=== PATIENT | male | born 1950 | race Caucasian/White ===

== ENCOUNTER 2019-03-22 07:52 | Inpatient (IN) | payer MEDICARE, MEDICAID, SELFPAY ==
[2019-03-22] VITALS (23 sets, daily range): BP systolic 88–114; BP diastolic 35–77; PULSE 55–110; RESP 18–24; TEMP 36–36.4; O2SAT 85–100; BMI 38.2
--- NOTE | ~2019-03-22 | US_ITS ---
EXAMINATION: US venous doppler [facility] DATE: 03/23/2019 10:54 INDICATION: Lower limb swelling TECHNIQUE: Grayscale ultrasound images without and with compression and Doppler ultrasound images of the bilateral lower extremity veins were obtained. COMPARISON: None. FINDINGS: The visualized portions of right common femoral vein, profunda (deep) femoral vein, femoral vein, pop liteal vein, posterior tibial veins, gastrocnemius vein and greater saphenous vein outflow are patent . The visualized portions of left common femoral vein, profunda femoral vein, femoral vein, popliteal v ein, posterior tibial veins, peroneal veins, gastrocnemius vein and greater saphenous vein outflow ar e patent. IMPRESSION: 1. No deep venous thrombosis in either lower limb. Reviewed, dictated and finalized at location A. ILE TECHNICIAN
--- NOTE | ~2019-03-22 | XR_ITS ---
XR chest 1V portable DATE: 03/22/2019 08:21 INDICATION: Cough TECHNIQUE: Portable upright AP chest on 03/22/2019 at 0809 hours COMPARISON: 03/04/2019 AP and lateral chest FINDINGS: Cardiomegaly. There is pulmonary vascular congestion and redistribution. Mild patchy infilt rates in the mid and lower lung zones, greater on the right, which may be due to pulmonary edema. Pne umonia or aspiration cannot be excluded. Minimal right pleural effusion is suggested. No left pleural effusion. No pneumothorax. Aortic calcification. IMPRESSION: Cardiomegaly, congestive heart failure, small right pleural effusion Bilateral infiltrates, right greater than left, which may be secondary to pulmonary edema, pneumonia and/or aspiration Aortic atherosclerosis Reviewed, dictated and finalized at location B. CAL CARE ADMINISTRATOR IMPRESSION: Cardiomegaly, congestive heart failure, small right pleural effusio n Bilateral infiltrates, right greater than left, which may be secondary to pulmo nary edema, pneumonia and/or aspiration Aortic atherosclerosis
--- NOTE | ~2019-03-22 | XR_ITS ---
XR chest 1V portable DATE: 03/24/2019 14:47 INDICATION: Shortness of breath, pulmonary edema TECHNIQUE: Portable upright AP chest on 03/24/2019 at 1444 hours COMPARISON: 03/22/2019 portable AP chest FINDINGS: There is no significant interval change in bilateral predominantly mid and lower lung zone infiltrates since 03/22/2019. Cardiac megaly, pulmonary vascular congestion appears stable. Aortic calcification. IMPRESSION: No significant change of bilateral infiltrates since 03/22/2019 Reviewed, dictated and finalized at location A. ITY TESTER
--- NOTE | 2019-03-22 07:58 | ECG_ITS ---
Measurements Intervals [place] Rate: 61 P: 97 VA: 250 QRS: 61 QRSD: 110 T: 83 QT: 421 QTc: 425 Interpretive Statements SINUS RHYTHM WITH FIRST DEGREE AV BLOCK BORDERLINE ST-T WAVE ABNORMALITY- LATERAL LEADS BASELINE WANDER- I, II ABNORMAL ECG Electronically Signed On 03-22-2019 8:35:41 COTTON SAMPLER by Andre Soni D.O.
--- NOTE | 2019-03-22 08:28 | ED.GENADULT ---
HPI - General Adult General Chief complaint: Unspecified Stated complaint: LOW BP Time Seen by Provider: 03/22/19 07:57 Source: patient, EMS and RN notes reviewed Mode of arrival: EMS Limitations: no limitations History of Present Illness HPI narrative: Pt is a 68 y/o male who presents to the ED, via EMS, from [place] with c/o near syncope. Per nurse, the [place] staff called EMS because he kept going in and out of during breakfast and his lips were cyanotic. Per [place] staff his BP was 60/30 and per EMS his BP was 90/60. Pt has a H/o CESAR and his O2 Sat was 80% on arrival to the ED. 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 He reports a cough for 3 months, but denies a fever. MD complaint: near syncope Onset (ago): day(s) (this morning) Relieving factors: none Associated symptoms: cough Treatments prior to arrival: none Related Data Home Medications Medication Instructions Recorded Confirmed Flonase Sensimist 27.5 mcg EACHNARE BID 03/01/19 03/02/19 Lactobacillus acidophilus 1 tab-cap PO BID 03/01/19 03/02/19 ProSource 10 ea PO BID 03/01/19 03/01/19 Questran 4 g PO BID 03/01/19 03/02/19 Toprol XL 12.5 mg PO BID 03/01/19 03/02/19 albuterol sulfate 1 mg INHALATION 6XD PRN 03/01/19 03/01/19 aspirin [Adult Low Dose Aspirin] 81 mg PO DAILY 03/01/19 03/22/19 bisacodyl 10 mg MD DAILY PRN 03/01/19 03/01/19 cetirizine [Zyrtec] 10 mg PO DAILY 03/01/19 03/01/19 clopidogrel [Plavix] 75 mg PO DAILY 03/01/19 03/02/19 gabapentin 200 mg PO TID 03/01/19 03/02/19 insulin lispro [Humalog U-100 1 sliding scale dose SUBCUT 03/01/19 03/02/19 Insulin] USEASDIRECTD levothyroxine 175 mcg PO DAILY 03/01/19 03/02/19 loratadine 10 mg PO DAILY PRN 03/01/19 03/02/19 ondansetron HCl [Zofran] 4 mg PO Q8H PRN 03/01/19 03/02/19 polyethylene glycol 3350 [Miralax] 17 g PO DAILY PRN 03/01/19 03/22/19 primidone 50 mg PO BID 03/01/19 03/02/19 sevelamer HCl 800 mg PO 6XD 03/01/19 03/02/19 tamsulosin [Flomax] 0.4 mg PO DAILY 03/01/19 03/02/19 Lactobacillus acidophilus See Rx Instructions .ROUTE .COMPLEX 03/22/19 03/22/19 atorvastatin [Lipitor] 80 mg PO DAILY 03/22/19 03/22/19 ferrous sulfate 325 mg PO DAILY 03/22/19 03/22/19 gabapentin 200 mg PO TID 03/22/19 03/22/19 gentamicin TOPICAL 03/22/19 03/22/19 hydrocodone-acetaminophen 1 tablet PO Q6H PRN 03/22/19 lanolin drepapk-oh-d.pet-ceres 1 applic TOPICAL DAILY 03/22/19 levothyroxine 175 mcg PO DAILY 03/22/19 03/22/19 Allergies Allergy/AdvReac Type Severity Reaction Status Date / Time No Known Allergies Allergy Verified 03/22/19 09:07 Review of Systems Review of Systems: All systems reviewed & are unremarkable except as noted in HPI and below Constitutional: Constitutional: Denies fever(s) Respiratory: Respiratory: Reports cough Neurologic: Reports syncope (near) [facility] Past Medical History Medical History (Updated 03/22/19 @ 16:12 by Tanner Werner DO) C. difficile colitis Constipation CVA (cerebral vascular accident) Diabetes mellitus Dialysis patient HTN, goal to be determined Hyperlipidemia Peritoneal dialysis catheter in place Surgical History Surgical History Hx of right BKA Social History Social History Smoking packs per day: 3 Smoking cigarettes per day: 60.0 Years smoked: 40 Smoking pack-years: 120.00 Smoking status: Former smoker Tobacco type: cigarettes Smoking end date: 03/01/99 Alcohol intake: unknown Substance use: former Substance use type: does not use Additional living arrangements comments: Pt lives at [facility]. Gender identity (if verbalized by the patient): Male Spiritual care concerns: No Agree to blood products: Yes Exam Narrative: Exam Narrative: APPEARANCE: No acute distress, nontoxic, resting in bed EYES: PERRL HEENT: Normocephalic, atraumatic, OMM RESPIRATORY: No respira
[2019-03-22 08:30] LABS: Basophils Absolute Auto 0.1 K/mm3 (0.0-0.1); Basophils Percent Auto 1.1 % (0.2-1.2); Eosinophils Absolute Auto 0.6 K/mm3 (0-0.3); Eosinophils Percent Auto 7.9 % (0-4.4); Hematocrit 33.9 % (42.0-52.0); Hemoglobin 9.9 g/dL (14.0-18.0); Immature Granulocyte Absolute 0.03 K/mm3 (0.00-0.031); Immature Granulocyte Percent A 0.4 % (0-0.5); Lymphocytes Absolute Auto 0.69 K/mm3 (0.9-3.2); Lymphocytes Percent Auto 9.9 % (18.3-44.2); Mean Corpuscular HGB Conc 29.2 g/dl (32-36); Mean Corpuscular Hemoglobin 27.7 pg (26-34); Mean Corpuscular Volume 94.7 fl (80-100); Mean Platelet Volume 8.9 fl (7.4-10.4); Monocytes Absolute Auto 0.7 K/mm3 (0.1-0.6); Monocytes Percent Auto 10.3 % (2.6-8.5); Neutrophils Absolute Auto 4.9 K/mm3 (1.3-6.7); Neutrophils Percent Auto 70.4 % (45.5-73.1); Nucleated Red Blood Cells Perc 0.3 % (0.0-0.2); Platelet Count Result 270 k/mm3 (150-375); Red Blood Count 3.58 M/mm3 (4.6-6.20); Red Cell Distribution Width 15.9 % (11.5-14.5)
[2019-03-22 08:43] LABS: Prothrombin Time 12.9 Seconds (11.1-14.7)
[2019-03-22 08:44] LABS: Partial Thromboplastin Time 31.6 SECONDS (22.3-36.8)
[2019-03-22 08:46] LABS: Ovalocytes 1+ (NORMAL); Platelet Estimate Adequate (Adequate); Stomatocytes 1+ (NORMAL); Tear Drop Cells 2+ (NORMAL)
[2019-03-22 08:47] LABS: Alkaline Phosphatase 79 U/L (38-126); Aspartate Amino Transferase 11 U/L (17-59); Bilirubin,Total < 0.1 mg/dL (0.2-1.3); Blood Urea Nitrogen 41 mg/dL (9-20); Calcium 7.9 mg/dL (8.4-10.2); Carbon Dioxide 25 mmol/L (22-30); Chloride 91 mmol/L (98-107); Estimated Glomerular Filt Rate 6; Glucose 138 mg/dL (75-110); Lactic Acid Reflex 0.9 mmol/L (0.7-2.1); Potassium 3.7 mmol/L (3.4-5.0); Sodium 131 mmol/L (137-145)
[2019-03-22 08:54] LABS: Alanine Aminotransferase < 6 U/L (4-50)
[2019-03-22 09:11] LABS: NT Pro B Type Natriuretic Pept 20700 PG/ML (5-100); Troponin I 0.024 ng/mL (0.000-0.034)
[2019-03-22 10:22] LABS: Alveolar/Arterial O2 Gradient 8.7 mmHg; Base Excess ABG -2.9 mEq/l (+/-2.0); Fractional Inspired Oxygen 28 %; Oxygen Content ABG 14.6 %vol (16.0-22.0); Oxygen Saturation ABG 92.4 % (95.0-100.0); Oxyhemoglobin 92.8 % THb (90.0-100.0); PO2 ABG 86.5 mmHg (80.0-100.0); PO2 FiO2 Ratio Arterial Blood 3.09 %; Total Hemoglobin 11.1 g/dL (12.0-18.0)
[2019-03-22 10:23] LABS: pH ABG 7.118 (7.350-7.450)
[2019-03-22 10:24] LABS: Device NASAL CANNULA; PCO2 ABG 88.5 mmHg (35.0-45.0); Site Drawn RIGHT BRACHIAL
[2019-03-22] MEDS: SODIUM CHLORIDE 0.9% IV 1,000 ML 999 ML IV CONT (10:39)
--- NOTE | 2019-03-22 11:50 | PC.NURSE ---
[facility]U not taking report on pt yet, said they would call back.
[2019-03-22 12:47] LABS: Alveolar/Arterial O2 Gradient 81.2 mmHg; Base Excess ABG -3.7 mEq/l (+/-2.0); Fractional Inspired Oxygen 45 %; Oxygen Content ABG 15.1 %vol (16.0-22.0); Oxygen Saturation ABG 97.8 % (95.0-100.0); Oxyhemoglobin 96.9 % THb (90.0-100.0); PO2 ABG 142.4 mmHg (80.0-100.0); PO2 FiO2 Ratio Arterial Blood 3.16 %; Total Hemoglobin 10.9 g/dL (12.0-18.0)
[2019-03-22 12:50] LABS: Device NON-INVASIVE VENT; PCO2 ABG 85.5 mmHg (35.0-45.0); Site Drawn RIGHT BRACHIAL; pH ABG 7.117 (7.350-7.450)
[2019-03-22 12:51] LABS: Non-Invasive Expiratory Pressure 8 CMH2O; Non-Invasive Inspiratory Pressure 14 CMH2O; Non-Invasive Vent Rate 20 /MIN
[2019-03-22 13:29] LABS: Glucose Point of Care 125 (65-105)
--- NOTE | 2019-03-22 14:01 | PM.EVENT ---
Event Note Event Note Event Note: Pt is on PD no abd pain. flows good and fluid has been clear. will increase intesnsity of the PD to remove fluid. He was seen 03/22/2019 at 2pm
--- NOTE | 2019-03-22 14:30 | PM.IMHP ---
H&P: HPI History of Present Illness Chief complaint: Hypotension, hypoxia. Narrative: Aisha Carey is a 68 year old male with multiple medical problems including history of stroke with left-sided weakness, diabetes, sleep apnea, hypertension, and end-stage renal disease on peritoneal dialysis who presented to the emergency department earlier this morning via EMS from [facility] for evaluation of hypotension and hypoxia. Other than a cough occasionally productive clear phlegm, the patient was feeling in his usual state of health when he went to bed last night. This morning while done at breakfast he was reportedly ?going in and out of it? and appeared somewhat cyanotic. Vital signs were immediately obtained with a blood pressure of 60/30, improved to 90/60 on EMS arrival. SpO2 was 80% on arrival to the emergency department. He was started on BiPAP due to somnolence and does note that he was a bit confused this morning. At the time my evaluation, he is awake, oriented, eager to removed the BiPAP so he can eat. He does not recall feeling poorly this morning, but he was somewhat confused and admits that he does not remember what happened. He states compliance with his CPAP at nighttime. He has not missed peritoneal dialysis that he can recall. He has chronic edema in his left leg for which she wears compression stockings. He denies fever, chills, and sweats. No chest pain, pleuritic pain, or palpitations. He denies nausea and vomiting. No diarrhea. He no longer urinates. No history of venous thromboembolism. Review of Systems Review of Systems: Narrative: Twelve systems were reviewed with pertinent positives and negatives as per HPI. No fever, chills, or sweats. He denies recent: Flu-like symptoms. No chest pain or shortness of breath. He has been on peritoneal dialysis for many years, and has had an AV fistula created a couple of weeks ago at [facility], presumably in anticipation for hemodialysis. Except as documented, all other systems were reviewed and are negative. [facility] Past Medical History Medical History (Updated 03/22/19 @ 20:51 by Desi Duke PA-C) C. difficile colitis Chronic anemia Constipation CVA (cerebral vascular accident) With mild left-sided weakness. Diabetes mellitus Hemoglobin A1c was 6.4 in February 2019. He is insulin-dependent. Hyperlipidemia Hypertension Hypothyroidism Obstructive sleep apnea on CPAP Peripheral vascular disease Peritoneal dialysis catheter in place Surgical History Surgical History Hx of right BKA Family History Family History Father History of blood clots Acute myocardial infarction Leukemia Mother History of blood clots Social History Social History (Updated 03/22/19 @ 20:45 by Desi Duke PA-C) Social History: The patient lives at [facility]. He designates his , Vira, as his surrogate decision maker and he wishes to be a full code. He smoked up to 3 packs of cigarettes per day for 40 years and reportedly quit in 1999. He denies alcohol and drug use. Smoking packs per day: 3 Smoking cigarettes per day: 60.0 Years smoked: 40 Smoking pack-years: 120.00 Smoking status: Former smoker Tobacco type: cigarettes Smoking end date: 03/22/19 Alcohol intake: former Substance use: never Substance use type: does not use Additional living arrangements comments: Pt lives at [facility]. Gender identity (if verbalized by the patient): Male Spiritual care concerns: No Agree to blood products: Yes Meds Home Medications and Allergies Home Medications Medication Instructions Recorded Confirmed Type Lactobacillus acidophilus 1 tab-cap PO BID 03/01/19 03/22/19 History ProSource 10 ea PO BID 03/01/19 03/22/19 History aspirin [Adult Low Dose Aspirin] 81 mg PO DAILY 03/01/19 0
[2019-03-22 15:35] LABS: Alveolar/Arterial O2 Gradient 83.2 mmHg; Base Excess ABG -2.8 mEq/l (+/-2.0); Fractional Inspired Oxygen 45 %; HCO3 ABG 27.3 mEq/l (22.0-26.0); Oxygen Content ABG 15.5 %vol (16.0-22.0); Oxygen Saturation ABG 98.1 % (95.0-100.0); Oxyhemoglobin 97.2 % THb (90.0-100.0); PO2 ABG 147.2 mmHg (80.0-100.0); PO2 FiO2 Ratio Arterial Blood 3.27 %; Total Hemoglobin 11.1 g/dL (12.0-18.0)
[2019-03-22 15:38] LABS: PCO2 ABG 79.5 mmHg (35.0-45.0); pH ABG 7.153 (7.350-7.450)
[2019-03-22 15:40] LABS: Device NON-INVASIVE VENT; Site Drawn RIGHT BRACHIAL
[2019-03-22 15:41] LABS: Non-Invasive Expiratory Pressure 8 CMH2O; Non-Invasive Inspiratory Pressure 20 CMH2O
[2019-03-22 15:52] LABS: Non-Invasive Vent Rate 20 /MIN
--- NOTE | 2019-03-22 16:54 | PM.CNNEP ---
Assessment and Plan Assessment and plan (1) End stage renal disease: Code(s): N18.6 - End stage renal disease Status: Chronic Assessment and Plan: the patient has ESRD and is on PD. he is tired of PD so is going to switch to HD once his fistula is ready in a few months. His PD catheter is working fine and the cycler is doing well. his UF is averaging over 2 L per day. (2) Acute respiratory failure with hypercapnia: Code(s): J96.02 - Acute respiratory failure with hypercapnia Status: Acute Assessment and Plan: the pateint has two issues. he has volume overload. he is very swollen and his lungs show fluid by exam and xray. His fluid intake is probably generous such that he overwhelms the PD at the prescription he has. his serum sodium is low so water drinking is an issue. he may have difficulty with salt intake as well. to help this we will place him back on PD now and start all h igh dose (4.25%) dianeal to get maximum fluid removal. I discussed with the PD nurse (the computer system crashed so I was unable to put the orders in) He also has respiratory acidosis. he has had co2 retention before. he is now on the bipap machine. (3) CESAR on CPAP: Code(s): G47.33 - Obstructive sleep apnea (adult) (pediatric); Z99.89 - Dependence on other enabling machines and devices Status: Acute Assessment and Plan: He uses the cpap machine at home. (4) Hypertension: Qualifiers: Hypertension type: essential hypertension Qualified Code(s): I10 - Essential (primary) hypertension Code(s): I10 - Essential (primary) hypertension Status: Chronic Assessment and Plan: his bloos pressure is well controlled. (5) HTN, goal to be determined: Code(s): I10 - Essential (primary) hypertension Status: Acute (6) Diabetes mellitus: Qualifiers: Diabetes mellitus complication detail: with other circulatory complications Diabetes mellitus complication status: with circulatory complication Diabetes mellitus terminal system operator insulin use: with alf use Diabetes mellitus type: type 2 Qualified Code(s): E11.59 - Type 2 diabetes mellitus with other circulatory complications; Z79.4 - shelter (current) use of insulin Code(s): E11.9 - Type 2 diabetes mellitus without complications Status: Chronic Assessment and Plan: he is on accuchecks and sliding scale insulin. (7) Erythropoietin deficiency anemia: Code(s): D63.1 - Anemia in chronic kidney disease Status: Acute Assessment and Plan: he has anemia. Hb is 9.8. will start epgen. History of Present Illness Reason for Consult Consult date: 03/23/19 Chief Complaint Chief complaint: Hypotension, hypoxia. 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 He was recently in the hospital for malfunction dialysis machine and volume overload. he had PD then HD for a few treatments. He improved. the cycler was repaired and he was discharged. he has had the desire to switch to HD so he had a fistula placed in the left upper arm 3 weeks ago. the procedure went well. over the last week or two he has gradually built up swelling. he has developed shortness of breath in the last week so he came to [facility] ER. there he was evaluated. he is very swollen, cxr shows fluid, and he was admitted. ABGs showed co2 retention so h was placed on the bipap. the patient just got into the room and says he feels a little better than when he got to the ER. he did receive inhalers and the bipap machine. he says the cycler and PD cath have been working fine. he says he has been using green and red bags 2 of each. no cloudy fluid or alarms. he does not smoke or drink. Review of Systems Constitutional: C
--- NOTE | 2019-03-22 18:47 | ADMGEN ---
This patient, Aisha Carey, was admitted to IMU Room 204-01 @ 1305 to room 204 accompanied by RN and RT. Pt placed back on BIPAP rate 20 FIO2-5%.. social media content specialist SB 50's 1st AV BLOCK; pt denies pain or SOB. Patient oriented to hospital policies and general routines including ID bracelet, bed and alarms, visiting hours, pain management, procedures, bathroom and other care routines, personal items, smoking policy, room service/diet, and visiting hours. Valuables list has been completed. Information on how to activate the Rapid Response Team has been discussed. Patient/Family are encouraged to report perceived risks to care and to ask questions if they do not understand what they are told or what they should do.
[2019-03-22 19:20] LABS: Alveolar/Arterial O2 Gradient 54.5 mmHg; Base Excess ABG -1.9 mEq/l (+/-2.0); Carboxyhemoglobin 0.1 % THb (0-2.0); Fractional Inspired Oxygen 35 %; HCO3 ABG 27.8 mEq/l (22.0-26.0); Methemoglobin ABG 0.4 %THb (0-1.5); Oxygen Content ABG 15.6 %vol (16.0-22.0); Oxygen Saturation ABG 96.3 % (95.0-100.0); Oxyhemoglobin 96.3 % THb (90.0-100.0); PO2 ABG 106.8 mmHg (80.0-100.0); PO2 FiO2 Ratio Arterial Blood 3.05 %; Reduced Hemoglobin 3.2 %THb (0-5.0); Total Hemoglobin 11.4 g/dL (12.0-18.0)
[2019-03-22 19:24] LABS: Device NON-INVASIVE VENT; Modified Allen's Test Pass; Non-Invasive Expiratory Pressure 8 CMH2O; Non-Invasive Inspiratory Pressure 22 CMH2O; Non-Invasive Vent Rate 20 /MIN; PCO2 ABG 75.9 mmHg (35.0-45.0); Site Drawn RIGHT RADIAL; pH ABG 7.181 (7.350-7.450)
[2019-03-22 21:36] LABS: Glucose Point of Care 204 (65-105)
[2019-03-22 23:02] LABS: Alveolar/Arterial O2 Gradient 57.3 mmHg; Base Excess ABG -5.1 mEq/l (+/-2.0); Fractional Inspired Oxygen 30 %; HCO3 ABG 23.8 mEq/l (22.0-26.0); Oxygen Content ABG 14.4 %vol (16.0-22.0); Oxygen Saturation ABG 92.4 % (95.0-100.0); Oxyhemoglobin 93.1 % THb (90.0-100.0); PO2 FiO2 Ratio Arterial Blood 2.67 %; Total Hemoglobin 10.9 g/dL (12.0-18.0)
[2019-03-22] MEDS: ALBUTEROL SULFATE NEB 2.5 MG/3 ML INH INHALATION (23:05)
[2019-03-22 23:06] LABS: pH ABG 7.181 (7.350-7.450)
[2019-03-22 23:07] LABS: Device NON-INVASIVE VENT; Modified Allen's Test Pass; Non-Invasive Expiratory Pressure 8 CMH2O; Non-Invasive Inspiratory Pressure 22 CMH2O; Non-Invasive Vent Rate 20 /MIN; PCO2 ABG 65.2 mmHg (35.0-45.0); Site Drawn RIGHT RADIAL
--- NOTE | 2019-03-22 23:50 | PC.NURSE ---
Stitches removed from fistula left arm at 2100, swabbed with betadine and chlorhexadine.
[2019-03-23] VITALS (17 sets, daily range): BP systolic 110–119; BP diastolic 38–46; PULSE 55–74; RESP 18–22; TEMP 35.9–36.6; O2SAT 94–100
[2019-03-23] MEDS: GENTAMICIN SULFATE 0.1% CR 15 GM TUBE 1 APPLIC TOPICAL ×2 (01:44→21:14)
[2019-03-23] MEDS: HEPARIN SODIUM 5,000 UNITS/ML VIAL 5000 UNITS SUB-Q ×3 (01:44→21:14)
[2019-03-23 04:51] LABS: Alveolar/Arterial O2 Gradient 73.5 mmHg; Base Excess ABG -1.7 mEq/l (+/-2.0); Carboxyhemoglobin 0.1 % THb (0-2.0); Fractional Inspired Oxygen 30 %; HCO3 ABG 26.7 mEq/l (22.0-26.0); Methemoglobin ABG 0.3 %THb (0-1.5); Oxygen Content ABG 13.8 %vol (16.0-22.0); Oxygen Saturation ABG 87.8 % (95.0-100.0); Oxyhemoglobin 89.7 % THb (90.0-100.0); PO2 ABG 64.1 mmHg (80.0-100.0); PO2 FiO2 Ratio Arterial Blood 2.14 %; Reduced Hemoglobin 9.9 %THb (0-5.0); Total Hemoglobin 10.9 g/dL (12.0-18.0)
[2019-03-23 04:52] LABS: pH ABG 7.232 (7.350-7.450)
[2019-03-23 04:53] LABS: Device NON-INVASIVE VENT; Modified Allen's Test Pass; Non-Invasive Expiratory Pressure 8 CMH2O; Non-Invasive Inspiratory Pressure 22 CMH2O; Non-Invasive Vent Rate 20 /MIN; PCO2 ABG 64.9 mmHg (35.0-45.0); Site Drawn RIGHT RADIAL
[2019-03-23 05:19] LABS: Basophils Absolute Auto 0.1 K/mm3 (0.0-0.1); Basophils Percent Auto 0.7 % (0.2-1.2); Eosinophils Absolute Auto 0.4 K/mm3 (0-0.3); Eosinophils Percent Auto 5.8 % (0-4.4); Hematocrit 32.6 % (42.0-52.0); Hemoglobin 9.8 g/dL (14.0-18.0); Immature Granulocyte Absolute 0.03 K/mm3 (0.00-0.031); Immature Granulocyte Percent A 0.4 % (0-0.5); Lymphocytes Absolute Auto 0.57 K/mm3 (0.9-3.2); Lymphocytes Percent Auto 8.4 % (18.3-44.2); Mean Corpuscular HGB Conc 30.1 g/dl (32-36); Mean Corpuscular Hemoglobin 27.8 pg (26-34); Mean Corpuscular Volume 92.4 fl (80-100); Mean Platelet Volume 9.2 fl (7.4-10.4); Monocytes Absolute Auto 0.6 K/mm3 (0.1-0.6); Monocytes Percent Auto 8.3 % (2.6-8.5); Neutrophils Absolute Auto 5.2 K/mm3 (1.3-6.7); Neutrophils Percent Auto 76.4 % (45.5-73.1); Platelet Count Result 265 k/mm3 (150-375); Red Blood Count 3.53 M/mm3 (4.6-6.20); Red Cell Distribution Width 15.7 % (11.5-14.5); White Blood Count 6.8 K/mm3 (4.5-10.0)
[2019-03-23 05:28] LABS: Blood Urea Nitrogen 39 mg/dL (9-20); Calcium 8.3 mg/dL (8.4-10.2); Carbon Dioxide 27 mmol/L (22-30); Chloride 94 mmol/L (98-107); Estimated CRCL calculation 12 ml/min; Estimated Glomerular Filt Rate 7; Glucose 210 mg/dL (75-110); Potassium 3.2 mmol/L (3.4-5.0); Sodium 132 mmol/L (137-145)
[2019-03-23] MEDS: LEVOTHYROXINE SODIUM 100 MCG TABLET PO (07:44)
[2019-03-23] MEDS: LEVOTHYROXINE SODIUM 75 MCG TABLET PO (07:44)
[2019-03-23 08:11] LABS: Glucose Point of Care 256 (65-105)
[2019-03-23] MEDS: SEVELAMER CARBONATE 800 MG TABLET 1600 MG PO ×3 (08:50→18:10)
[2019-03-23] MEDS: SILVERGEL (ELTA) 45 ML 1 APPLIC TOPICAL (08:51)
[2019-03-23] MEDS: FLUTICASONE PROPIONATE 0.05% NA SPR 16 GM BTL (*BKC) 2 SPRAY NASAL ×2 (08:51→18:09)
[2019-03-23] MEDS: CLOPIDOGREL BISULFATE 75 MG TABLET PO (08:52)
[2019-03-23] MEDS: GABAPENTIN 100 MG CAPSULE 200 MG PO ×3 (08:52→18:09)
[2019-03-23] MEDS: METOPROLOL SUCCINATE EXT REL 12.5 MG TABCR PO (08:52)
[2019-03-23] MEDS: TAMSULOSIN HCL 0.4 MG CAPSULE PO ×2 (08:52→18:11)
[2019-03-23] MEDS: EUCERIN CREAM 120 GM JAR 1 APPLIC TOPICAL (08:52)
[2019-03-23] MEDS: ATORVASTATIN 40 MG TABLET 80 MG PO (08:52)
[2019-03-23] MEDS: ACIDOPHILUS/BULGARICUS CHEWABLE TABLET 1 TABLET PO ×2 (08:53→18:12)
[2019-03-23] MEDS: CHOLESTYRAMINE (W/ SUGAR) 4 GM POWD.PACK 2 GM PO ×2 (08:54→18:08)
[2019-03-23] MEDS: FERROUS SULFATE 324 MG TABLET PO (08:54)
[2019-03-23] MEDS: ASPIRIN 81 MG ENTERIC TABLET PO (08:55)
[2019-03-23] MEDS: LORATADINE 10 MG TABLET PO (08:55)
[2019-03-23] MEDS: PRIMIDONE 50 MG TABLET PO ×2 (08:56→18:10)
[2019-03-23] MEDS: ALBUTEROL SULFATE NEB 2.5 MG/3 ML INH INHALATION (08:57)
[2019-03-23] MEDS: INSULIN ASPART (*BKC) 100 UNITS/ML SUB-Q ×2 (09:10→12:22)
--- NOTE | 2019-03-23 11:12 | PM.PNNEP ---
Progress Note: A&P Assessment and Plan (1) End stage renal disease: Code(s): N18.6 - End stage renal disease Status: Chronic Assessment and Plan: ongoing intensive CCPD to address volume status continue CCPD until can transition to HD follow electrolytes, volume status, and clearance (2) Acute respiratory failure with hypercapnia: Code(s): J96.02 - Acute respiratory failure with hypercapnia Status: Acute Assessment and Plan: due to volume overload and CESAR PD to address volume status BiPAP to compensate for CO2 retention (3) CESAR on CPAP: Code(s): G47.33 - Obstructive sleep apnea (adult) (pediatric); Z99.89 - Dependence on other enabling machines and devices Status: Acute Assessment and Plan: use CPAP/BiPAP while hospitalized follow CO2 levels (4) Hypertension: Qualifiers: Hypertension type: essential hypertension Qualified Code(s): I10 - Essential (primary) hypertension Code(s): I10 - Essential (primary) hypertension Status: Chronic Assessment and Plan: reasonable control at this time follow hemodynamics (5) Erythropoietin deficiency anemia: Code(s): D63.1 - Anemia in chronic kidney disease Status: Acute Assessment and Plan: due to ESRD on Epogen follow H/H Will continue to follow Subjective Date/time seen: 03/23/19 11:12 Tolerating CCPD treatment at the time of my visit (seen on PD at ~ 11:00AM); no other acute issues or problems overnight; volume status seems better in general compared to admission. Exam Narrative: Exam Narrative: General: WD/WN male in NAD Heart: normal S1 and S2; no rub Lungs: coarse breath sounds Abdomen: soft, nontender, nondistended, positive bowel sounds Extremities: no cyanosis or clubbing; 1+ edema Skin: warm and dry Objective Data Vital Signs Vital Signs: Vital Signs Temp Pulse Resp BP Pulse Ox 03/23/19 10:00 68 03/23/19 09:12 73 20 03/23/19 08:58 64 20 03/23/19 08:52 62 03/23/19 08:16 36.1 C L 60 20 119/42 L 100 03/23/19 08:00 58 L 03/23/19 06:00 60 03/23/19 04:54 55 L 20 97 03/23/19 04:00 36.6 C 59 L 18 117/43 L 95 03/23/19 02:00 63 03/23/19 01:22 63 21 H 100 03/23/19 00:00 36.6 C 56 L 18 117/42 L 96 03/22/19 23:15 58 L 20 03/22/19 23:08 61 20 100 03/22/19 23:05 56 L 20 03/22/19 22:00 58 L 03/22/19 20:00 36.4 C 61 18 114/46 L 100 03/22/19 19:15 61 18 100 03/22/19 18:00 58 L 03/22/19 17:00 96 03/22/19 16:00 36.0 C L 60 22 H 94/35 L 95 03/22/19 15:50 21 H 96 03/22/19 14:40 36.0 C L 62 22 H 94/35 L 03/22/19 14:00 55 L 03/22/19 13:22 56 L 22 H 93 03/22/19 13:05 36.3 C L 56 L 22 H 107/39 L 100 03/22/19 12:37 56 L 21 H 107/51 L 100 03/22/19 12:00 36.3 C L 56 L 22 H 107/39 L 100 03/22/19 11:28 55 L 20 111/77 100 Intake/Output Intake/Output: Intake & Output 03/20/19 03/21/19 03/22/19 03/23/19 23:59 23:59 23:59 23:59 Intake Total 1340 Balance 1340 Meds/Results Medications: Active Medications Generic Name Dose Route Start Last Admin Trade Name Fre PRN Reason Stop Dose Admin Hydrocodone Bitart/Acetaminophen 1 tab 03/22/19 20:58 [place] 5-325 Mg PO Q6H PRN Pain Rated 4-6 Albuterol 2.5 mg 03/23/19 00:00 03/23/19 08:57 Albuterol Sulf Neb 2.5 Mg/3 Ml INHALATION 2.5 mg Q8HRT RJ Administration Aspirin 81 mg 03/23/19 09:00 03/23/19 08:55 Aspirin Ec PO 81 mg DAILY RJ Administration Atorvastatin Calcium 80 mg 03/23/19 09:00 03/23/19 08:52 Lipitor PO 80 mg DAILY RJ Administration Bisacodyl 10 mg 03/22/19 20:58 Dulcolax Suppository RECTAL Q12H PRN Constipation Cholestyramine Resin 2 gm 03/23/19 09:00 03/23/19 08:54 Questran Powder Packs PO 2 gm BID RJ Administration Clopi
[2019-03-23 12:25] LABS: Glucose Point of Care 245 (65-105)
--- NOTE | 2019-03-23 13:37 | PM.IMPN ---
Progress Note: A&P Assessment and Plan (1) Acute respiratory failure with hypoxia and hypercapnia: Code(s): J96.01 - Acute respiratory failure with hypoxia; J96.02 - Acute respiratory failure with hypercapnia Status: Acute Assessment and Plan: Doing much better after intense PD overnight Transfer to medical floor (2) Volume overload: Qualifiers: Hypervolemia type: other Qualified Code(s): E87.79 - Other fluid overload Code(s): E87.70 - Fluid overload, unspecified Status: Acute Assessment and Plan: Continue volume management with PD per Nephrology Patient has a graft in place and is waiting for it to mature so he can transition to hemodialysis (3) End-stage renal disease on peritoneal dialysis: Code(s): N18.6 - End stage renal disease; Z99.2 - Dependence on renal dialysis Status: Acute Assessment and Plan: Continue with peritoneal dialysis per Nephrology (4) Obstructive sleep apnea on CPAP: Code(s): G47.33 - Obstructive sleep apnea (adult) (pediatric); Z99.89 - Dependence on other enabling machines and devices Status: Acute Assessment and Plan: Tolerating off BiPAP Continue home CPAP at night (5) Chronic anemia: Code(s): D64.9 - Anemia, unspecified Status: Acute Assessment and Plan: Hemoglobin and hematocrit were reviewed and they are stable. (6) Diabetes mellitus: Qualifiers: Diabetes mellitus type: type 2 Diabetes mellitus detention insulin use: with detention use Diabetes mellitus complication status: with circulatory complication Diabetes mellitus complication detail: with other circulatory complications Qualified Code(s): E11.59 - Type 2 diabetes mellitus with other circulatory complications; Z79.4 - intermodal dispatcher (current) use of insulin Code(s): E11.9 - Type 2 diabetes mellitus without complications Status: Chronic Assessment and Plan: Well controlled with recent hemoglobin A1c of 6.4. Continue basal insulin and initiate sliding scale insulin, Accu-Cheks, and hypoglycemic protocol. Subjective Date/time seen: 03/23/19 13:37 Interval history: Breathing much better after intensive PD overnight. Denied pain. No GI or complaints. No abnormal bleeding. Review of Systems Review of Systems: All systems reviewed & are unremarkable except as noted in HPI and below Exam Narrative: Exam Narrative: HEENT: EOMI, PERRL, pharyngeal mucosa pink and intact NECK: No JVD, adenopathy, or thyromegaly CHEST: coarse BS HEART: NL S1/S2, regular, no murmur ABDOMEN: BS+, soft, nontender, no mass, no bruits EXTREMITIES: No cyanosis, 1+ pretibial edema NEUROLOGIC: CN intact and symmetric to inspection. MUSCULOSKELETAL: Tone and strength symmetric. PSYCH: Alert. Oriented to person, place, and time. Objective Data Vital Signs Vital Signs: Vital Signs - 24 hr 03/22/19 14:00 03/22/19 14:40 03/22/19 15:50 Temperature 96.8 F L Pulse Rate 55 L 62 Respiratory Rate 22 H 21 H Blood Pressure 94/35 L Pulse Oximetry 96 03/22/19 16:00 03/22/19 17:00 03/22/19 18:00 Temperature 96.8 F L Pulse Rate 60 58 L Respiratory Rate 22 H Blood Pressure 94/35 L Pulse Oximetry 95 96 03/22/19 19:15 03/22/19 20:00 03/22/19 22:00 Temperature 97.6 F Pulse Rate 61 61 58 L Respiratory Rate 18 18 Blood Pressure 114/46 L Pulse Oximetry 100 100 03/22/19 23:05 03/22/19 23:08 03/22/19 23:15 Temperature Pulse Rate 56 L 61 58 L Respiratory Rate 20 20 20 Blood Pressure Pulse Oximetry 100 03/23/19 00:00 03/23/19 01:22 03/23/19 02:00 Temperature 97.9 F Pulse Rate 56 L 63 63 Respiratory Rate 18 21 H Blood Pressure 117/42 L Pulse Oximetry 96 100 03/23/19 04:00 03/23/19 04:54 03/23/19 06:00 Temperature 97.8 F Pulse Rate 59 L 55 L 60 Respiratory Rate 18 20 Blood Pressure 117/43 L Pulse Oximetry 95 97 03/23/19 08:00 03/23/19
[2019-03-23 16:10] LABS: Glucose Point of Care 114 (65-105)
--- NOTE | 2019-03-23 18:40 | PC.NURSE ---
This patient, Aisha Carey, was received from IMU on 03/23/19 at 1600. Personal belongings list checked and signed. Patient/family oriented to unit policies and routines
[2019-03-23 21:19] LABS: Glucose Point of Care 213 (65-105)
[2019-03-24] VITALS (8 sets, daily range): BP systolic 109; BP diastolic 57; PULSE 66–72; RESP 18–20; TEMP 36.7; O2SAT 92–98
[2019-03-24] MEDS: ALBUTEROL SULFATE NEB 2.5 MG/3 ML INH INHALATION ×3 (00:47→14:06)
[2019-03-24] MEDS: LEVOTHYROXINE SODIUM 75 MCG TABLET PO (05:34)
[2019-03-24] MEDS: LEVOTHYROXINE SODIUM 100 MCG TABLET PO (05:35)
[2019-03-24 08:05] LABS: Glucose Point of Care 108 (65-105)
[2019-03-24] MEDS: ATORVASTATIN 40 MG TABLET 80 MG PO (08:51)
[2019-03-24] MEDS: CLOPIDOGREL BISULFATE 75 MG TABLET PO (08:51)
[2019-03-24] MEDS: TAMSULOSIN HCL 0.4 MG CAPSULE PO ×2 (08:51→16:45)
[2019-03-24] MEDS: CHOLESTYRAMINE (W/ SUGAR) 4 GM POWD.PACK 2 GM PO ×2 (08:52→16:44)
[2019-03-24] MEDS: FLUTICASONE PROPIONATE 0.05% NA SPR 16 GM BTL (*BKC) 2 SPRAY NASAL ×2 (08:52→16:46)
[2019-03-24] MEDS: GABAPENTIN 100 MG CAPSULE 200 MG PO ×3 (08:52→16:45)
[2019-03-24] MEDS: SEVELAMER CARBONATE 800 MG TABLET 1600 MG PO ×3 (08:53→16:45)
[2019-03-24] MEDS: METOPROLOL SUCCINATE EXT REL 12.5 MG TABCR PO (08:53)
[2019-03-24] MEDS: ACIDOPHILUS/BULGARICUS CHEWABLE TABLET 1 TABLET PO ×2 (08:54→16:46)
[2019-03-24] MEDS: ASPIRIN 81 MG ENTERIC TABLET PO (08:54)
[2019-03-24] MEDS: FERROUS SULFATE 324 MG TABLET PO (08:54)
[2019-03-24] MEDS: HEPARIN SODIUM 5,000 UNITS/ML VIAL 5000 UNITS SUB-Q (08:54)
[2019-03-24] MEDS: PRIMIDONE 50 MG TABLET PO ×2 (08:55→16:45)
[2019-03-24] MEDS: LORATADINE 10 MG TABLET PO (08:55)
[2019-03-24] MEDS: SILVERGEL (ELTA) 45 ML 1 APPLIC TOPICAL (10:56)
[2019-03-24] MEDS: EUCERIN CREAM 120 GM JAR 1 APPLIC TOPICAL (10:56)
[2019-03-24 13:06] LABS: Glucose Point of Care 124 (65-105)
--- NOTE | 2019-03-24 14:06 | PM.PNNEP ---
Progress Note: A&P Assessment and Plan (1) End stage renal disease: Code(s): N18.6 - End stage renal disease Status: Chronic Assessment and Plan: continue CCPD nightly while hospitalized continue CCPD until can transition to HD follow electrolytes, volume status, and clearance (2) Acute respiratory failure with hypercapnia: Code(s): J96.02 - Acute respiratory failure with hypercapnia Status: Acute Assessment and Plan: due to volume overload and CESAR PD to address volume status BiPAP to compensate for CO2 retention (3) CESAR on CPAP: Code(s): G47.33 - Obstructive sleep apnea (adult) (pediatric); Z99.89 - Dependence on other enabling machines and devices Status: Acute Assessment and Plan: use CPAP/BiPAP while hospitalized follow CO2 levels (4) Hypertension: Qualifiers: Hypertension type: essential hypertension Qualified Code(s): I10 - Essential (primary) hypertension Code(s): I10 - Essential (primary) hypertension Status: Chronic Assessment and Plan: reasonable control at this time follow hemodynamics (5) Erythropoietin deficiency anemia: Code(s): D63.1 - Anemia in chronic kidney disease Status: Acute Assessment and Plan: due to ESRD on Epogen follow H/H Will continue to follow Subjective Date/time seen: 03/24/19 14:06 Tolerated regular CCPD overnight with another 1600cc UF; the previous day fluid remova/UFl was 4444cc; overall, breathing seems to be doing better; no apparent distress noted Exam Narrative: Exam Narrative: General: WD/WN male in NAD Heart: normal S1 and S2; no rub Lungs: coarse breath sounds Abdomen: soft, nontender, nondistended, positive bowel sounds Extremities: no cyanosis or clubbing; 1+ edema Skin: warm and dry Objective Data Vital Signs Vital Signs: Vital Signs Temp Pulse Resp BP Pulse Ox 03/24/19 09:25 70 20 03/24/19 09:15 68 20 03/24/19 08:53 72 03/24/19 08:00 36.7 C 69 18 109/57 L 92 03/24/19 00:55 67 20 03/24/19 00:47 66 20 98 03/23/19 22:15 36.4 C L 68 18 110/46 L 97 03/23/19 21:15 68 18 97 03/23/19 19:24 74 22 H 97 Intake/Output Intake/Output: Intake & Output 03/21/19 03/22/19 03/23/19 03/24/19 23:59 23:59 23:59 23:59 Intake Total 1340 1320 580 Output Total 1665 Balance 1340 1320 -1085 Meds/Results Medications: Active Medications Generic Name Dose Route Start Last Admin Trade Name Freq PRN Reason Stop Dose Admin Hydrocodone Bitart/Acetaminophen 1 tab 03/22/19 20:58 [place] 5-325 Mg PO Q6H PRN Pain Rated 4-6 Albuterol 2.5 mg 03/23/19 00:00 03/24/19 09:22 Albuterol Sulf Neb 2.5 Mg/3 Ml INHALATION 2.5 mg Q8HRT RJ Administration Aspirin 81 mg 03/23/19 09:00 03/24/19 08:54 Aspirin Ec PO 81 mg DAILY RJ Administration Atorvastatin Calcium 80 mg 03/23/19 09:00 03/24/19 08:51 Lipitor PO 80 mg DAILY RJ Administration Bisacodyl 10 mg 03/22/19 20:58 Dulcolax Suppository RECTAL Q12H PRN Constipation Cholestyramine Resin 2 gm 03/23/19 09:00 03/24/19 08:52 Questran Powder Packs PO 2 gm BID RJ Administration Clopidogrel Bisulfate 75 mg 03/23/19 09:00 03/24/19 08:51 Plavix PO 75 mg DAILY RJ Administration Dextrose 12.5 gm 03/22/19 21:00 Dextrose 50% Syringe IV PUSH PRN PRN Hypoglycemia Protocol Ferrous Sulfate 324 mg 03/23/19 08:00 03/24/19 08:54 Ferrous Sulfate PO 324 mg DAILY@0800 RJ Administration Fluticasone Propionate 2 spray 03/23/19 09:00 03/24/19 08:52 Flonase 0.05% Nasal [place] NASAL 2 spray BID RJ Administration Gabapentin 200 mg 03/23/19 09:00 03/24/19 12:47 Neurontin PO 200 mg TID RJ Administration Gentamicin Sulfate 1 applic 03/22/19 22:00 03/23/19 21:14 Gentamicin Sulfate 0.1% Cr TOPICAL 1 applic
--- NOTE | 2019-03-24 14:45 | PM.DS ---
DS: Diagnosis Admitting Diagnosis Admitting Diagnosis: Acute respiratory failure with hypoxia Discharge Diagnosis (1) Acute respiratory failure with hypoxia and hypercapnia: Code(s): J96.01 - Acute respiratory failure with hypoxia; J96.02 - Acute respiratory failure with hypercapnia Status: Acute Assessment and Plan: Doing much better after intense PD overnight Transfer to medical floor (2) Volume overload: Qualifiers: Hypervolemia type: other Qualified Code(s): E87.79 - Other fluid overload Code(s): E87.70 - Fluid overload, unspecified Status: Acute Assessment and Plan: Continue volume management with PD per Nephrology Patient has a graft in place and is waiting for it to mature so he can transition to hemodialysis (3) End-stage renal disease on peritoneal dialysis: Code(s): N18.6 - End stage renal disease; Z99.2 - Dependence on renal dialysis Status: Acute Assessment and Plan: Continue with peritoneal dialysis per Nephrology (4) Obstructive sleep apnea on CPAP: Code(s): G47.33 - Obstructive sleep apnea (adult) (pediatric); Z99.89 - Dependence on other enabling machines and devices Status: Acute Assessment and Plan: Tolerating off BiPAP Continue home CPAP at night (5) Chronic anemia: Code(s): D64.9 - Anemia, unspecified Status: Acute Assessment and Plan: Hemoglobin and hematocrit were reviewed and they are stable. 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 Continue basal insulin and initiate sliding scale insulin, Accu-Cheks, and hypoglycemic protocol. DS: Summary Hospital Course Reason for hospitalization: Dyspnea Hospital Course: Admitted with dyspnea found to be volume overloaded. Intensified PD rectified is situation. He had a graft that was maturing so that he can transition to hemodialysis. He was followed by Nephrology during hospitalization. They will manage his volume status as an outpatient with more intense PT. Status at Discharge Overall status at discharge: patient is back to baseline Time Spent with Patient Time attestation: Total time spent providing and/or coordinating discharge services: 33 min Exam Narrative: Exam Narrative: HEENT: EOMI, PERRL, pharyngeal mucosa pink and intact NECK: No JVD, adenopathy, or thyromegaly CHEST: less coarse BS HEART: NL S1/S2, regular, no murmur ABDOMEN: BS+, soft, nontender, no mass, no bruits EXTREMITIES: No cyanosis, 1+ pretibial edema NEUROLOGIC: CN intact and symmetric to inspection. MUSCULOSKELETAL: Tone and strength symmetric. PSYCH: Alert. Oriented to person, place, and time. DS: Data Data Completed and Pending Labs on day of discharge: Labs from last 24 hours 03/24/19 03/24/19 03/23/19 12:45 07:28 21:11 POC Capillary Glucose 124 H 108 213 H 03/23/19 16:07 POC Capillary Glucose 114 H Preliminary micro results at discharge 03/22/19 08:24 Blood Culture - Preliminary Blood 03/22/19 08:24 Blood Culture - Preliminary Blood Discharge Plan Discharge Attending physician on discharge: Rainer Greer Consulting providers: Romaine Calabrese ; Desi Duke ; Andre Soni ; Star Ramos ; Que Joy Paul Discharging Clinician: Rainer Greer Patient Disposition: [facility] Home/[facility]st Living Activity: as tolerated Diet: diabeti
[2019-03-24] MEDS: EPOETIN ALFA 10,000 UNITS/ML VIAL 10000 UNITS SUB-Q (15:50)
[2019-03-24 16:16] LABS: Glucose Point of Care 110 (65-105)
--- NOTE | 2019-03-24 16:42 | PC.NURSE ---
Notified patient's , Vira Brandon, that the patient is returning today to [facility]. Acknowledged understanding.
--- NOTE | 2019-03-24 17:20 | PC.NURSE ---
Nurse at [facility], Cadence Giron LPN, voiced cannot fax discharge information because the fax machine is not working.
== END 2019-03-24 18:15 | DRG 640 ==
LOC: ANHED 09:06 → ANHIMU 12:37 → ANH3MED 03-23 19:41 → ANHIMU 03-28 08:51
PROVIDERS: Internal Medicine; Physician Assistant; Admitting Provider Family Medicine; Emergency Provider Emergency Medicine; Visit Provider Internal Medicine
DX: E87.70 Fluid overload, unspecified (principal); J96.01 Acute respiratory failure with hypoxia; N18.6 End stage renal disease; J96.02 Acute respiratory failure with hypercapnia; I12.0 Hypertensive chronic kidney disease with stage 5 chronic kidney disease or end stage renal disease; I69.354 Hemiplegia and hemiparesis following cerebral infarction affecting left non-dominant side; E66.2 Morbid (severe) obesity with alveolar hypoventilation; E11.22 Type 2 diabetes mellitus with diabetic chronic kidney disease; E11.51 Type 2 diabetes mellitus with diabetic peripheral angiopathy without gangrene; E78.5 Hyperlipidemia, unspecified; E03.9 Hypothyroidism, unspecified; G47.33 Obstructive sleep apnea (adult) (pediatric); D63.1 Anemia in chronic kidney disease; Z87.891 Personal history of nicotine dependence; Z89.511 Acquired absence of right leg below knee; Z99.2 Dependence on renal dialysis; Z68.36 Body mass index [BMI] 36.0-36.9, adult; Z79.4 Long term (current) use of insulin; Z79.82 Long term (current) use of aspirin
CPT/HCPCS: 36415; 36600; 71045; 80048; 80053; 82375; 82805; 83050; 83605; 83880; 84443; 84484; 85025; 85610; 85730; 87040; 87081; 87804; 90945; 93005; 93970; 94002; 94003; 94640; 94660; 96360; 99291; A9270; J1644; J1815; J7030; Q4081

== ENCOUNTER 2019-04-09 12:18 | Inpatient (IN) | payer MEDICARE, MEDICAID, SELFPAY ==
[2019-04-09] VITALS (17 sets, daily range): BP systolic 100–125; BP diastolic 36–50; PULSE 58–72; RESP 9–22; TEMP 35.8–36.7; O2SAT 94–100; BMI 38.4
--- NOTE | ~2019-04-09 | XR_ITS ---
EXAMINATION: XR chest 2V DATE: 04/09/2019 12:54 INDICATION: Shortness of breath TECHNIQUE: AP and lateral views of the chest are obtained. COMPARISON: 03/24/2019 FINDINGS: Patchy bilateral interstitial and airspace opacities persist but have slightly improved. Th ere are small pleural effusions. No pneumothorax is identified. There is stable cardiomegaly. There i s mild thoracic spondylosis. IMPRESSION: 1. Improved interstitial and airspace opacities, consistent with resolving pulmonary edema and/or pne umonia and/or atelectasis. 2. Stable cardiomegaly. 3. Small pleural effusions. Reviewed, dictated and finalized at location A. SITE SUPERVISOR IMPRESSION: 1. Improved interstitial and airspace opacities, consistent with resolving pulm onary edema and/or pneumonia and/or atelectasis. 2. Stable cardiomegaly. 3. Small pleural effusions.
--- NOTE | 2019-04-09 12:31 | ED.SOB ---
HPI - SOB/Dyspnea General Chief Complaint: Shortness of Breath/Dyspnea Stated Complaint: sob x1 week Time Seen by Provider: 04/09/19 12:23 Source: patient and RN notes reviewed Mode of arrival: EMS Limitations: no limitations History of Present Illness HPI Narrative: A 68 y/o male presents to the ED via EMS from [facility] with worsening SOB for the past couple weeks. He notes that his SOB is aggravated when he lays flat and denies anything alleviating it. He also denies any cough, fevers, chills, increased edema, N/V/D, CP, or ABD pain. MD elicited complaint: shortness of breath Pertinent past history: diabetes and DVT Onset (ago): week(s) (a couple) Timing: progressively worsening Exacerbating factors: lying flat Relieving factors: nothing Known history of: diabetes and DVT Associated symptoms: denies other symptoms Treatment prior to arrival: oxygen Related Data Home Medications Medication Instructions Recorded Confirmed ProSource 10 ea PO BID 03/01/19 04/09/19 bisacodyl 10 mg IA DAILY PRN 03/01/19 04/09/19 cetirizine [Zyrtec] 10 mg PO DAILY 03/01/19 04/09/19 clopidogrel [Plavix] 75 mg PO DAILY 03/01/19 04/09/19 insulin lispro [Humalog U-100 1 sliding scale dose SUBCUT TIDWM 03/01/19 04/09/19 Insulin] ondansetron HCl [Zofran] 4 mg PO Q8H PRN 03/01/19 04/09/19 polyethylene glycol 3350 [Miralax] 17 g PO DAILY PRN 03/01/19 04/09/19 tamsulosin [Flomax] 0.4 mg PO DAILY 03/01/19 04/09/19 Lactobacillus acidophilus 100 mg PO BID 03/22/19 04/09/19 albuterol sulfate 2.5 mg INHALATION Q4H PRN 03/22/19 04/09/19 atorvastatin [Lipitor] 80 mg PO QPM 03/22/19 04/09/19 cholestyramine (with sugar) 2 g PO BID 03/22/19 04/09/19 [Questran] ferrous sulfate 325 mg PO DAILY 03/22/19 04/09/19 fluticasone propionate 2 spray INTRANASAL BID 03/22/19 04/09/19 gabapentin 200 mg PO TID 03/22/19 04/09/19 gentamicin 1 applic TOPICAL HS 03/22/19 04/09/19 hydrocodone-acetaminophen 1 tablet PO Q6H PRN 03/22/19 04/09/19 levothyroxine 175 mcg PO DAILY 03/22/19 04/09/19 loratadine 10 mg PO DAILY PRN 03/22/19 04/09/19 metoprolol succinate [Toprol XL] 12.5 mg PO BID 03/22/19 04/09/19 primidone 50 mg PO BID 03/22/19 04/09/19 sevelamer HCl 1,600 mg PO TIDWM 03/22/19 04/09/19 aspirin [Aspirin Childrens] 81 mg PO DAILY 04/09/19 04/09/19 sevelamer HCl 1,600 mg PO PRN PRN 04/09/19 04/09/19 sulfamethoxazole-trimethoprim 1 tablet PO Q12H 04/09/19 04/09/19 [Bactrim DS] Allergies Allergy/AdvReac Type Severity Reaction Status Date / Time No Known Allergies Allergy Verified 04/09/19 17:26 Review of Systems Review of Systems: All systems reviewed & are unremarkable except as noted in HPI and below Constitutional: Constitutional: Denies chills and Denies fever(s) Cardiovascular: Cardiovascular: Denies chest pain and Denies other (edema) Respiratory: Respiratory: Denies cough and Reports dyspnea Gastrointestinal: Gastrointestinal: Denies abdominal pain, Denies diarrhea, Denies nausea and Denies vomiting [facility] Past Medical History Medical History (Updated 04/09/19 @ 20:18 by Federico Zuniga MD) Benign prostatic hyperplasia C. difficile colitis Chronic anemia CVA (cerebral vascular accident) With mild left-sided weakness. End-stage renal disease on peritoneal dialysis GERD (gastroesophageal reflux disease) Hyperlipidemia Hypertension Hypothyroidism Insulin dependent type 2 diabetes mellitus Hemoglobin A1c was 6.4% in February 2019. Obstructive sleep apnea on CPAP Peripheral vascular disease Peritoneal dialysis catheter in place Surgical History Surgical History Hx of right BKA Family History Family History Father History of blood clots Acute myocardial infarction Leukemia Mother History of blood clots Social History Social History Social History: The patien
--- NOTE | 2019-04-09 12:35 | ECG_ITS ---
Measurements Intervals [place] Rate: 64 P: 46 WY: 252 QRS: 50 QRSD: 105 T: 82 QT: 404 QTc: 417 Interpretive Statements SINUS RHYTHM WITH FIRST DEGREE AV BLOCK CANNOT RULE OUT SEPTAL INFARCT, AGE INDETERMINATE BORDERLINE ST-T WAVE ABNORMALITY- LATERAL LEADS BASELINE ARTIFACT- I, II ABNORMAL ECG Electronically Signed On 04-09-2019 14:28:11 ASSISTANT by Andre Soni D.O.
--- NOTE | 2019-04-09 12:52 | PC.NURSE ---
Pt states he has has increased SOB and weakness over the last few days. Pt states SOB has been increasing over last couple weeks. Pt is A&Ox4. Pt lungs coarse throughout. Pt has hx of COPD and CHF. Pt does peritoneal dialysis nightly. Pt had new fistula placed in LFA 3 wks ago with plan to start hemodialysis in the next few weeks.
[2019-04-09 13:33] LABS: Basophils Absolute Auto 0.1 K/mm3 (0.0-0.1); Basophils Percent Auto 0.8 % (0.2-1.2); Eosinophils Absolute Auto 0.2 K/mm3 (0-0.3); Eosinophils Percent Auto 3.5 % (0-4.4); Hematocrit 35.7 % (42.0-52.0); Hemoglobin 10.4 g/dL (14.0-18.0); Immature Granulocyte Absolute 0.02 K/mm3 (0.00-0.031); Immature Granulocyte Percent A 0.3 % (0-0.5); Lymphocytes Absolute Auto 0.61 K/mm3 (0.9-3.2); Lymphocytes Percent Auto 9.8 % (18.3-44.2); Mean Corpuscular HGB Conc 29.1 g/dl (32-36); Mean Corpuscular Hemoglobin 26.9 pg (26-34); Mean Corpuscular Volume 92.2 fl (80-100); Mean Platelet Volume 9.1 fl (7.4-10.4); Monocytes Absolute Auto 0.6 K/mm3 (0.1-0.6); Monocytes Percent Auto 9.7 % (2.6-8.5); Neutrophils Absolute Auto 4.7 K/mm3 (1.3-6.7); Neutrophils Percent Auto 75.9 % (45.5-73.1); Nucleated Red Blood Cells Perc 0.6 % (0.0-0.2); Platelet Count Result 160 k/mm3 (150-375); Red Blood Count 3.87 M/mm3 (4.6-6.20); Red Cell Distribution Width 16.2 % (11.5-14.5); White Blood Count 6.2 K/mm3 (4.5-10.0)
[2019-04-09 13:45] LABS: Blood Urea Nitrogen 48 mg/dL (9-20); Calcium 7.9 mg/dL (8.4-10.2); Carbon Dioxide 26 mmol/L (22-30); Chloride 86 mmol/L (98-107); Estimated CRCL calculation 12 ml/min; Estimated Glomerular Filt Rate 6; Glucose 90 mg/dL (75-110); Potassium 4.4 mmol/L (3.4-5.0); Sodium 126 mmol/L (137-145)
[2019-04-09 13:47] LABS: Prothrombin Time 13.1 Seconds (11.1-14.7)
[2019-04-09 13:48] LABS: Partial Thromboplastin Time 33.5 SECONDS (22.3-36.8)
[2019-04-09 13:54] LABS: NT Pro B Type Natriuretic Pept 19000 PG/ML (5-100)
--- NOTE | 2019-04-09 15:00 | PM.IMHP ---
H&P: HPI History of Present Illness Chief complaint: Shortness of breath. Narrative: Aisha Carey is a 68-year-old male with multiple medical problems including history of stroke with left-sided weakness, type 2 diabetes mellitus, obstructive sleep apnea, hypertension, and end-stage renal disease on peritoneal dialysis who presented to the emergency department earlier this afternoon via EMS from [facility] for evaluation of shortness of breath. This will be his 3rd admission to the hospital since February 2019, all presenting with respiratory failure secondary to volume overload. He apparently had a couple of treatments of hemodialysis while here in February, and about a week thereafter an AV fistula was created in his left upper extremity in anticipation to convert to hemodialysis. He remains on peritoneal dialysis at the [facility]. He was last discharged on March 24, 2019 after a 2 day stay for the same as above. He felt pretty good for about a week and a half, but for the last 7 days he has noted progressive dyspnea on lesser and lesser exertion. He also suffers from orthopnea and lower leg edema, which is about the same as it is at baseline. At the time my evaluation, he falls asleep in mid sentence and a subsequent ABG demonstrated an arterial pH of 7.146 and a pCO2 of 77.3. He has been started on BiPAP and admitted to the IMU. He states compliance with his CPAP at nighttime. He has not had fever, chills, or sweats. No chest pain or shortness of breath. He denies nausea, vomiting, and diarrhea. He no longer urinates. Review of Systems Review of Systems: All systems reviewed & are unremarkable except as noted in HPI and below PMFSH Past Medical History Medical History (Updated 04/09/19 @ 18:03 by Desi Duke PA-C) Benign prostatic hyperplasia C. difficile colitis Chronic anemia CVA (cerebral vascular accident) With mild left-sided weakness. End-stage renal disease on peritoneal dialysis GERD (gastroesophageal reflux disease) Hyperlipidemia Hypertension Hypothyroidism Insulin dependent type 2 diabetes mellitus Hemoglobin A1c was 6.4% in February 2019. Obstructive sleep apnea on CPAP Peripheral vascular disease Peritoneal dialysis catheter in place Surgical History Surgical History Hx of right BKA Family History Family History Father History of blood clots Acute myocardial infarction Leukemia Mother History of blood clots Social History Social History Social History: The patient lives at [facility]. He designates his , Vira, as his surrogate decision maker and he wishes to be a full code. He smoked up to 3 packs of cigarettes per day for 40 years and reportedly quit in 1999. He denies alcohol and drug use. Smoking packs per day: 3 Smoking cigarettes per day: 60.0 Years smoked: 40 Smoking pack-years: 120.00 Smoking status: Former smoker Tobacco type: cigarettes Smoking end date: 03/22/19 Alcohol intake: former Substance use: never Substance use type: does not use Additional living arrangements comments: Pt lives at [facility]. Gender identity (if verbalized by the patient): Male Spiritual care concerns: No Agree to blood products: Yes Meds Home Medications and Allergies Home Medications Medication Instructions Recorded Confirmed Type ProSource 10 ea PO BID 03/01/19 03/22/19 History bisacodyl 10 mg [place] Q12H PRN 03/01/19 03/22/19 History cetirizine [Zyrtec] 10 mg PO DAILY 03/01/19 03/22/19 History clopidogrel [Plavix] 75 mg PO DAILY 03/01/19 03/22/19 History insulin lispro [Humalog U-100 1 sliding scale dose SUBCUT 03/01/19 03/22/19 History Insulin] USEASDIRECTD ondansetron HCl [Zofran] 4 mg PO Q8H PRN 03/01/19 03/22/19 History polye
[2019-04-09 15:07] LABS: Alveolar/Arterial O2 Gradient 95.1 mmHg; Fractional Inspired Oxygen 38 %; HCO3 ABG 26.1 mEq/l (22.0-26.0); Oxygen Content ABG 14.9 %vol (16.0-22.0); Oxygen Saturation ABG 93.1 % (95.0-100.0); PO2 ABG 86.6 mmHg (80.0-100.0); PO2 FiO2 Ratio Arterial Blood 2.28 %; Total Hemoglobin 11.3 g/dL (12.0-18.0)
[2019-04-09 15:08] LABS: Device NASAL CANNULA; Liters per Minute 4.5 LPM; Modified Allen's Test Pass; PCO2 ABG 77.3 mmHg (35.0-45.0); Site Drawn RIGHT RADIAL; pH ABG 7.146 (7.350-7.450)
[2019-04-09 16:35] LABS: Alveolar/Arterial O2 Gradient 104.9 mmHg; Base Excess ABG -4.3 mEq/l (+/-2.0); Fractional Inspired Oxygen 50 %; HCO3 ABG 25.4 mEq/l (22.0-26.0); Methemoglobin ABG 0.4 %THb (0-1.5); Oxygen Content ABG 16.1 %vol (16.0-22.0); Oxygen Saturation ABG 98.6 % (95.0-100.0); Oxyhemoglobin 97.1 % THb (90.0-100.0); PCO2 ABG 72.5 mmHg (35.0-45.0); Reduced Hemoglobin 1.5 %THb (0-5.0); Total Hemoglobin 11.5 g/dL (12.0-18.0); pH ABG 7.163 (7.350-7.450)
[2019-04-09 16:36] LABS: Device NON-INVASIVE VENT; Non-Invasive Expiratory Pressure 8 CMH2O; Non-Invasive Inspiratory Pressure 16 CMH2O; Non-Invasive Vent Rate 4 /MIN; Site Drawn RIGHT BRACHIAL
--- NOTE | 2019-04-09 16:43 | PC.NURSE ---
This patient, Aisha Carey, was admitted to IMU Room 211-01. Patient/family oriented to hospital policies and general routines including ID bracelet, bed and alarms, visiting hours, pain management, procedures, bathroom and other care routines, personal items, smoking policy, room service/diet, and visiting hours. Valuables list has been completed. Information on how to activate the Rapid Response Team has been discussed. Patient/Family are encouraged to report perceived risks to care and to ask questions if they do not understand what they are told or what they should do.
[2019-04-09 17:44] LABS: Glucose Point of Care 79 (65-105)
[2019-04-09] MEDS: PRIMIDONE 50 MG TABLET PO (19:49)
[2019-04-09] MEDS: ATORVASTATIN 40 MG TABLET 80 MG PO (19:50)
[2019-04-09] MEDS: FLUTICASONE PROPIONATE 0.05% NA SPR 16 GM BTL (*BKC) 2 SPRAY NASAL (19:50)
[2019-04-09] MEDS: GABAPENTIN 100 MG CAPSULE 200 MG PO (19:50)
[2019-04-09] MEDS: SEVELAMER CARBONATE 800 MG TABLET 1600 MG PO (19:50)
[2019-04-09] MEDS: CHOLESTYRAMINE (W/ SUGAR) 4 GM POWD.PACK 2 GM PO (19:51)
[2019-04-09] MEDS: METOPROLOL SUCCINATE EXT REL 12.5 MG TABCR PO (19:51)
[2019-04-09] MEDS: HEPARIN SODIUM 5,000 UNITS/ML VIAL 5000 UNITS SUB-Q (19:51)
[2019-04-09] MEDS: GENTAMICIN SULFATE 0.1% CR 15 GM TUBE 1 APPLIC TOPICAL (19:51)
[2019-04-09 20:16] LABS: Sodium 126 mmol/L (137-145)
[2019-04-09 21:01] LABS: Glucose Point of Care 90 (65-105)
[2019-04-09] MEDS: ACIDOPHILUS/BULGARICUS CHEWABLE TABLET 1 TABLET PO (21:14)
[2019-04-09 22:22] LABS: Carboxyhemoglobin 0.4 % THb (0-2.0); Fractional Inspired Oxygen 35 %; HCO3 ABG 25.3 mEq/l (22.0-26.0); Methemoglobin ABG 0.4 %THb (0-1.5); Oxygen Content ABG 15.1 %vol (16.0-22.0); Oxygen Saturation ABG 96.4 % (95.0-100.0); Oxyhemoglobin 95.9 % THb (90.0-100.0); PO2 ABG 101.8 mmHg (80.0-100.0); PO2 FiO2 Ratio Arterial Blood 2.91 %; Reduced Hemoglobin 3.3 %THb (0-5.0); Total Hemoglobin 11.1 g/dL (12.0-18.0)
[2019-04-09 22:24] LABS: Device NON-INVASIVE VENT; Modified Allen's Test Unable to perform; PCO2 ABG 61.7 mmHg (35.0-45.0); Site Drawn RIGHT RADIAL
[2019-04-09 22:25] LABS: Non-Invasive Expiratory Pressure 8 CMH2O; Non-Invasive Inspiratory Pressure 22 CMH2O; Non-Invasive Vent Rate 18 /MIN
[2019-04-10] VITALS (19 sets, daily range): BP systolic 90–124; BP diastolic 36–51; PULSE 58–97; RESP 18–22; TEMP 36–36.6; O2SAT 95–100
[2019-04-10 01:02] LABS: Sodium 126 mmol/L (137-145)
[2019-04-10] MEDS: LEVOTHYROXINE SODIUM 100 MCG TABLET PO (06:26)
[2019-04-10] MEDS: LEVOTHYROXINE SODIUM 75 MCG TABLET PO (06:26)
[2019-04-10 06:40] LABS: Hematocrit 35.3 % (42.0-52.0); Hemoglobin 10.5 g/dL (14.0-18.0); Mean Corpuscular HGB Conc 29.7 g/dl (32-36); Mean Corpuscular Hemoglobin 27.1 pg (26-34); Mean Corpuscular Volume 91.2 fl (80-100); Mean Platelet Volume 9.6 fl (7.4-10.4); Platelet Count Result 158 k/mm3 (150-375); Red Blood Count 3.87 M/mm3 (4.6-6.20); Red Cell Distribution Width 16.3 % (11.5-14.5); White Blood Count 5.5 K/mm3 (4.5-10.0)
[2019-04-10 06:47] LABS: Blood Urea Nitrogen 48 mg/dL (9-20); Calcium 8.2 mg/dL (8.4-10.2); Carbon Dioxide 26 mmol/L (22-30); Chloride 87 mmol/L (98-107); Estimated CRCL calculation 12 ml/min; Estimated Glomerular Filt Rate 6; Glucose 183 mg/dL (75-110); Potassium 3.6 mmol/L (3.4-5.0); Sodium 127 mmol/L (137-145)
[2019-04-10 07:50] LABS: Hepatitis B Surface Antigen Negative (Negative)
[2019-04-10] MEDS: ACIDOPHILUS/BULGARICUS CHEWABLE TABLET 1 TABLET PO ×2 (09:14→18:13)
[2019-04-10] MEDS: GABAPENTIN 100 MG CAPSULE 200 MG PO ×3 (09:14→18:12)
[2019-04-10] MEDS: CHOLESTYRAMINE (W/ SUGAR) 4 GM POWD.PACK 2 GM PO ×2 (09:14→18:12)
[2019-04-10] MEDS: ASPIRIN 81 MG CHEWABLE TABLET PO (09:14)
[2019-04-10] MEDS: FERROUS SULFATE 324 MG TABLET PO (09:14)
[2019-04-10] MEDS: TAMSULOSIN HCL 0.4 MG CAPSULE PO (09:14)
[2019-04-10] MEDS: SEVELAMER CARBONATE 800 MG TABLET 1600 MG PO ×3 (09:14→18:13)
[2019-04-10] MEDS: CLOPIDOGREL BISULFATE 75 MG TABLET PO (09:15)
[2019-04-10] MEDS: HEPARIN SODIUM 5,000 UNITS/ML VIAL 5000 UNITS SUB-Q ×2 (09:15→20:30)
[2019-04-10] MEDS: FLUTICASONE PROPIONATE 0.05% NA SPR 16 GM BTL (*BKC) 2 SPRAY NASAL ×2 (09:15→20:30)
[2019-04-10] MEDS: LORATADINE 10 MG TABLET PO (09:15)
[2019-04-10 09:16] LABS: Hepatitis B Surface Anti Res Indeterminate
[2019-04-10] MEDS: PRIMIDONE 50 MG TABLET PO ×2 (09:16→20:34)
[2019-04-10] MEDS: METOPROLOL SUCCINATE EXT REL 12.5 MG TABCR PO ×2 (09:16→20:32)
[2019-04-10 09:26] LABS: Sodium 128 mmol/L (137-145)
[2019-04-10 12:16] LABS: Glucose Point of Care 133 (65-105)
[2019-04-10 13:11] LABS: Sodium 129 mmol/L (137-145)
--- NOTE | 2019-04-10 14:09 | PM.CNNEP ---
Assessment and Plan Assessment and plan (1) End stage renal disease: Code(s): N18.6 - End stage renal disease Status: Chronic (2) Fluid overload: Qualifiers: Hypervolemia type: other Qualified Code(s): E87.79 - Other fluid overload Code(s): E87.70 - Fluid overload, unspecified Status: Acute (3) Hyponatremia: Code(s): E87.1 - Hypo-osmolality and hyponatremia Status: Acute (4) Acute respiratory failure with hypercapnia: Code(s): J96.02 - Acute respiratory failure with hypercapnia Status: Acute (5) Anemia: Code(s): D64.9 - Anemia, unspecified Status: Chronic Assessment and Plan: . Additional Plan Aisha has end-stage renal disease and is currently on peritoneal dialysis. He has had recurring admissions for volume overload are going that his peritoneal dialysis is not adequate to maintain his volume status, or perhaps, his nursing facility is not being proactive in trying to push fluid removal with his peritoneal dialysis prescription. Overnight, he received aggressive peritoneal dialysis by my orders and was able to achieve at least 2 1.5 L fluid removal. I will use the same orders tonight in the hopes achieve the same if not more fluid removal thereby optimizing his respiratory and volume status. He does have an AV fistula in place but is still immature to use and my hope is that we can ?stretch him and ?with peritoneal dialysis until his AV access is ready to be used for the transition to hemodialysis. If he continues to have ongoing admissions for fluid overload, we may have to consider placement of a tunneled dialysis catheter and institution of hemodialysis sooner than later although I do not think this is indicated at this time. I will continue follow patient with you while remains hospitalized and make further recommendations during his hospital course Thank you for allowing me participate in care this patient. History of Present Illness Reason for Consult Consult date: 04/10/19 Reason for consult: end stage renal disease Chief Complaint Chief complaint: Shortness of breath. History of Present Illness Narrative: The patient is a 68-year-old male with an extensive medical history as outlined below who presented to [facility] ER via EMS from [facility] for evaluation of shortness of breath. In the llast 7 days he has noted progressive dyspnea on lesser and lesser exertion. He has been hospitalized here [facility] at least on 3 separate occasions for fluid overload requiring aggressive dialytic intervention. It was felt that his peritoneal dialysis was not effective in maintaining his volume status and as such, has had an AV access placed in his arm for eventual transition to hemodialysis at a later date. In any case, because of the shortness of breath he was sent to the ER and evaluation demonstrated clear evidence of volume overload once again both by chest x-ray and and essentially normal blood work consistent with his known history of end-stage renal disease. He was subsequently to the hospital for further evaluation and therapy. Renal consultation was requested due to his end-stage renal disease. The patient normally does peritoneal dialysis as nursing facility but is in the process of transitioning to hemodialysis as it is felt that his peritoneal dialysis is not being as effective as it once was in maintain his volume status. Given that this is his 3rd admission to the hospital for volume overload, this this seems quite apparent now. He received aggressive peritoneal dialysis overnight and had about 2.5 L fluid removal which seemed to improve his respiratory status at the time of my visit. Currently, he does not appear to be in acute distress and does state his breathing is doing much better. Review of Systems Review of Systems: Narrative: As per HPI. [facility] Past Medical History Medical History (Updated
[2019-04-10] MEDS: SILVERGEL (ELTA) 45 ML 1 APPLIC TOPICAL (14:29)
--- NOTE | 2019-04-10 17:22 | PM.IMPN ---
Progress Note: A&P Assessment and Plan (1) Acute respiratory failure with hypercapnia: Code(s): J96.02 - Acute respiratory failure with hypercapnia Status: Acute Assessment and Plan: Patient with acute on chronic respiratory failure, with hypercarbia. He is on CPAP at nighttime, Oxygen in the day (2) Fluid overload: Qualifiers: Hypervolemia type: other Qualified Code(s): E87.79 - Other fluid overload Code(s): E87.70 - Fluid overload, unspecified Status: Acute Assessment and Plan: Awaiting hemodilaysis I am not certain if peritoneal dialysis is not being done correctly at the [facility]. Dr. Joy consulted. AV fistula is in place in the left upper extremity, not yet mature. (3) End-stage renal disease on peritoneal dialysis: Code(s): N18.6 - End stage renal disease; Z99.2 - Dependence on renal dialysis Status: Acute Assessment and Plan: Dr. Joy consulted for peritoneal dialysis as above. (4) Hyponatremia: Code(s): E87.1 - Hypo-osmolality and hyponatremia Status: Acute Assessment and Plan: Presumably due to volume overload. May need to fluid restrict somewhat. (5) Obstructive sleep apnea on CPAP: Code(s): G47.33 - Obstructive sleep apnea (adult) (pediatric); Z99.89 - Dependence on other enabling machines and devices Status: Acute Assessment and Plan: Was on bipap will benefit from CPAP on discharge (6) Chronic anemia: Code(s): D64.9 - Anemia, unspecified Status: Acute Assessment and Plan: Hemoglobin and hematocrit are stable on review of previous labs. (7) Insulin dependent type 2 diabetes mellitus: Code(s): E11.9 - Type 2 diabetes mellitus without complications; Z79.4 - medical terminologist (current) use of insulin Status: Acute Assessment and Plan: Hemoglobin A1c last month was 6.4%. Continue basal insulin. Initiate sliding scale insulin, Accu-Cheks, and hypoglycemic protocol. Subjective Date/time seen: 04/10/19 17:22 Interval history: 68-year-old male with multiple medical problems including history of stroke with left-sided weakness, type 2 diabetes mellitus, obstructive sleep apnea, hypertension, and end-stage renal disease on peritoneal dialysis who presented to the emergency department earlier this afternoon via EMS from [facility] for evaluation of shortness of breath. Pt was on bipap for fluid overload, pt had his peritoneal dilaysis awaiting hemodilaysis and fistulae maturation. Pts breathing is better today, continue to monitor in hospital. Review of Systems Review of Systems: All systems reviewed & are unremarkable except as noted in HPI and below Cardiovascular: Cardiovascular: Denies no additional cardiovascular complaints, Denies chest pain and Reports dyspnea Respiratory: Respiratory: Reports chest congestion and Reports dyspnea Gastrointestinal: Gastrointestinal: Denies no additional gastrointestinal complaints Genitourinary: Genitourinary: Denies no additional male genitourinary complaints Exam Narrative: Exam Narrative: General: A well-developed, on 3 liters of oxygen HEENT: Normocephalic Neck: Supple. Respiratory: Faint crackles at the bases. Cardiovascular: Regular rate and rhythm with S1-S2. Heart sounds are distant. Gastrointestinal: Abdomen is soft, nontender, and nondistended with positive bowel sounds. Skin: Warm and dry. Patient reports a shallow ulceration to the proximal aspect of the dorsum of the left foot. Extremities: No cyanosis or clubbing. Neurological: Alert and oriented, however he has to be woken up several times to complete these answers.. Cranial nerves 2-12 are grossly intact. Speech is clear but slow. No gross focal deficits to casual conversation. Psychiatric: Pleasant. Cooperative. Objective Data Vital Signs Vital Signs: Vital Signs - 24 h
[2019-04-10 17:26] LABS: Sodium 129 mmol/L (137-145)
[2019-04-10 17:39] LABS: Glucose Point of Care 100 (65-105)
[2019-04-10] MEDS: ATORVASTATIN 40 MG TABLET 80 MG PO (18:13)
[2019-04-10 21:13] LABS: Glucose Point of Care 119 (65-105)
[2019-04-10] MEDS: GENTAMICIN SULFATE 0.1% CR 15 GM TUBE 1 APPLIC TOPICAL (21:26)
--- NOTE | 2019-04-10 22:07 | PM.CNPUL ---
History of Present Illness History of Present Illness Consult date: 04/10/19 Chief complaint: Shortness of breath. [facility] Past Medical History Medical History (Updated 04/09/19 @ 20:18 by Federico Zuniga MD) Benign prostatic hyperplasia C. difficile colitis Chronic anemia CVA (cerebral vascular accident) With mild left-sided weakness. End-stage renal disease on peritoneal dialysis GERD (gastroesophageal reflux disease) Hyperlipidemia Hypertension Hypothyroidism Insulin dependent type 2 diabetes mellitus Hemoglobin A1c was 6.4% in February 2019. Obstructive sleep apnea on CPAP Peripheral vascular disease Peritoneal dialysis catheter in place Surgical History Surgical History Hx of right BKA Family History Family History Father History of blood clots Acute myocardial infarction Leukemia Mother History of blood clots Social History Social History Social History: The patient lives at [facility]. He designates his , Vira, as his surrogate decision maker and he wishes to be a full code. He smoked up to 3 packs of cigarettes per day for 40 years and reportedly quit in 1999. He denies alcohol and drug use. Smoking packs per day: 3 Smoking cigarettes per day: 60.0 Years smoked: 40 Smoking pack-years: 120.00 Smoking status: Former smoker Tobacco type: cigarettes Smoking end date: 03/22/19 Alcohol intake: unknown Substance use: unknown Substance use type: does not use Additional living arrangements comments: Pt lives at [facility]. Gender identity (if verbalized by the patient): Male Spiritual care concerns: No Agree to blood products: Yes Meds Home Medications and Allergies Home Medications Medication Instructions Recorded Confirmed Type ProSource 10 ea PO BID 03/01/19 04/09/19 History bisacodyl 10 mg [place] DAILY PRN 03/01/19 04/09/19 History cetirizine [Zyrtec] 10 mg PO DAILY 03/01/19 04/09/19 History clopidogrel [Plavix] 75 mg PO DAILY 03/01/19 04/09/19 History insulin lispro [Humalog U-100 1 sliding scale dose SUBCUT TIDWM 03/01/19 04/09/19 History Insulin] ondansetron HCl [Zofran] 4 mg PO Q8H PRN 03/01/19 04/09/19 History polyethylene glycol 3350 [Miralax] 17 g PO DAILY PRN 03/01/19 04/09/19 History tamsulosin [Flomax] 0.4 mg PO DAILY 03/01/19 04/09/19 History Lactobacillus acidophilus 100 mg PO BID 03/22/19 04/09/19 History albuterol sulfate 2.5 mg INHALATION Q4H PRN 03/22/19 04/09/19 History atorvastatin [Lipitor] 80 mg PO QPM 03/22/19 04/09/19 History cholestyramine (with sugar) 2 g PO BID 03/22/19 04/09/19 History [Questran] ferrous sulfate 325 mg PO DAILY 03/22/19 04/09/19 History fluticasone propionate 2 spray INTRANASAL BID 03/22/19 04/09/19 History gabapentin 200 mg PO TID 03/22/19 04/09/19 History gentamicin 1 applic TOPICAL HS 03/22/19 04/09/19 History hydrocodone-acetaminophen 1 tablet PO Q6H PRN 03/22/19 04/09/19 History levothyroxine 175 mcg PO DAILY 03/22/19 04/09/19 History loratadine 10 mg PO DAILY PRN 03/22/19 04/09/19 History metoprolol succinate [Toprol XL] 12.5 mg PO BID 03/22/19 04/09/19 History primidone 50 mg PO BID 03/22/19 04/09/19 History sevelamer HCl 1,600 mg PO TIDWM 03/22/19 04/09/19 History aspirin [Aspirin Childrens] 81 mg PO DAILY 04/09/19 04/09/19 History sevelamer HCl 1,600 mg PO PRN PRN 04/09/19 04/09/19 History sulfamethoxazole-trimethoprim 1 tablet PO Q12H 04/09/19 04/09/19 History [Bactrim DS] Allergies Allergy/AdvReac Type Severity Reaction Status Date / Time No Known Allergies Allergy Verified 04/09/19 17:26 Vital Signs Vital Signs - 24 hr 04/09/19 23:49 04/10/19 00:00 04/10/19 02:00 Temperature 36.6 C Pulse Rate 62 60 60 Respiratory Rate 20 18 Blood Pressure 90/39 L Pulse Oximetry 97 99
[2019-04-11 00:28] VITALS: O2SAT 95
[2019-04-11 03:56] VITALS: BP 113/37; PULSE 69; RESP 22; TEMP 36.3; O2SAT 99
[2019-04-11 05:09] LABS: Hematocrit 34.4 % (42.0-52.0); Hemoglobin 10.1 g/dL (14.0-18.0); Mean Corpuscular HGB Conc 29.4 g/dl (32-36); Mean Corpuscular Hemoglobin 27.1 pg (26-34); Mean Corpuscular Volume 92.2 fl (80-100); Mean Platelet Volume 9.3 fl (7.4-10.4); Platelet Count Result 153 k/mm3 (150-375); Red Blood Count 3.73 M/mm3 (4.6-6.20); Red Cell Distribution Width 16.3 % (11.5-14.5); White Blood Count 6.3 K/mm3 (4.5-10.0)
[2019-04-11 05:33] LABS: Blood Urea Nitrogen 46 mg/dL (9-20); Calcium 7.8 mg/dL (8.4-10.2); Carbon Dioxide 25 mmol/L (22-30); Chloride 91 mmol/L (98-107); Estimated CRCL calculation 11 ml/min; Estimated Glomerular Filt Rate 6; Glucose 167 mg/dL (75-110); Potassium 3.4 mmol/L (3.4-5.0); Sodium 130 mmol/L (137-145)
[2019-04-11] MEDS: LEVOTHYROXINE SODIUM 75 MCG TABLET PO (06:34)
[2019-04-11] MEDS: LEVOTHYROXINE SODIUM 100 MCG TABLET PO (06:34)
[2019-04-11 07:24] VITALS: BP 113/37; PULSE 69; RESP 22; TEMP 36.3
[2019-04-11] MEDS: SEVELAMER CARBONATE 800 MG TABLET 1600 MG PO (07:45)
[2019-04-11] MEDS: HEPARIN SODIUM 5,000 UNITS/ML VIAL 5000 UNITS SUB-Q (07:45)
[2019-04-11] MEDS: GABAPENTIN 100 MG CAPSULE 200 MG PO (07:45)
[2019-04-11] MEDS: TAMSULOSIN HCL 0.4 MG CAPSULE PO (07:45)
[2019-04-11] MEDS: ACIDOPHILUS/BULGARICUS CHEWABLE TABLET 1 TABLET PO (07:45)
[2019-04-11] MEDS: FLUTICASONE PROPIONATE 0.05% NA SPR 16 GM BTL (*BKC) 2 SPRAY NASAL (07:46)
[2019-04-11] MEDS: METOPROLOL SUCCINATE EXT REL 12.5 MG TABCR PO (07:46)
[2019-04-11] MEDS: PRIMIDONE 50 MG TABLET PO (07:46)
[2019-04-11] MEDS: LORATADINE 10 MG TABLET PO (07:46)
[2019-04-11] MEDS: ASPIRIN 81 MG CHEWABLE TABLET PO (07:47)
[2019-04-11] MEDS: SILVERGEL (ELTA) 45 ML 1 APPLIC TOPICAL (07:47)
[2019-04-11] MEDS: CLOPIDOGREL BISULFATE 75 MG TABLET PO (07:47)
[2019-04-11] MEDS: FERROUS SULFATE 324 MG TABLET PO (07:47)
[2019-04-11 08:00] VITALS: BP 105/42; PULSE 98; RESP 18; TEMP 36.6; O2SAT 96
[2019-04-11 08:13] LABS: Glucose Point of Care 140 (65-105)
[2019-04-11] MEDS: CHOLESTYRAMINE (W/ SUGAR) 4 GM POWD.PACK 2 GM PO (09:09)
[2019-04-11 12:00] VITALS: BP 97/40; PULSE 64; RESP 18; TEMP 36.5; O2SAT 97
--- NOTE | 2019-04-11 12:10 | PM.DS ---
DS: Diagnosis Admitting Diagnosis Admitting Diagnosis: Acute respiratory failure with hypercapnia Discharge Diagnosis (1) Acute respiratory failure with hypercapnia: Code(s): J96.02 - Acute respiratory failure with hypercapnia Status: Acute Assessment and Plan: Patient with acute on chronic respiratory failure, with hypercarbia. He is on CPAP at nighttime, Oxygen in the day I would like him to CPAP at the SNF facility (2) Fluid overload: Qualifiers: Hypervolemia type: other Qualified Code(s): E87.79 - Other fluid overload Code(s): E87.70 - Fluid overload, unspecified Status: Acute Assessment and Plan: Awaiting hemodilaysis I am not certain if peritoneal dialysis is not being done correctly at the correction. Dr. Joy consulted. AV fistula is in place in the left upper extremity, not yet mature. (3) End-stage renal disease on peritoneal dialysis: Code(s): N18.6 - End stage renal disease; Z99.2 - Dependence on renal dialysis Status: Acute Assessment and Plan: Dr. Joy consulted for peritoneal dialysis as above. (4) Hyponatremia: Code(s): E87.1 - Hypo-osmolality and hyponatremia Status: Acute Assessment and Plan: Presumably due to volume overload. May need to fluid restrict at SNF (5) Obstructive sleep apnea on CPAP: Code(s): G47.33 - Obstructive sleep apnea (adult) (pediatric); Z99.89 - Dependence on other enabling machines and devices Status: Acute Assessment and Plan: Was on bipap will benefit from CPAP on discharge (6) Chronic anemia: Code(s): D64.9 - Anemia, unspecified Status: Acute Assessment and Plan: Hemoglobin and hematocrit are stable on review of previous labs. (7) Insulin dependent type 2 diabetes mellitus: Code(s): E11.9 - Type 2 diabetes mellitus without complications; Z79.4 - watermelon inspector (current) use of insulin Status: Acute Assessment and Plan: Hemoglobin A1c last month was 6.4%. Continue basal insulin. Initiate sliding scale insulin, Accu-Cheks, and hypoglycemic protocol. DS: Summary Time Spent with Patient Time attestation: Total time spent providing and/or coordinating discharge services:40 minutes on day of discharge Exam Narrative: Exam Narrative: General: A well-developed, on 2 liters of oxygen HEENT: Normocephalic Neck: Supple. Respiratory: Faint crackles at the bases. Cardiovascular: Regular rate and rhythm with S1-S2. Heart sounds are distant. Gastrointestinal: Abdomen is soft, nontender, and nondistended with positive bowel sounds. Skin: Warm and dry. Patient reports a shallow ulceration to the proximal aspect of the dorsum of the left foot. Extremities: No cyanosis or clubbing. Neurological: Alert and oriented, however he has to be woken up several times to complete these answers.. Cranial nerves 2-12 are grossly intact. Speech is clear but slow. No gross focal deficits to casual conversation. Psychiatric: Pleasant. Cooperative. DS: Data Data Completed and Pending Labs on day of discharge: Labs from last 24 hours 04/11/19 04/11/19 04/11/19 07:52 04:49 04:49 WBC 6.3 RBC 3.73 L Hgb 10.1 L Hct 34.4 L MCV 92.2 MCH 27.1 MCHC 29.4 L RDW 16.3 H Plt Count 153 MPV 9.3 Sodium 130 L Potassium 3.4 Chloride 91 L Carbon Dioxide 25 BUN 46 H Creatinine 8.90 H Estim Creat Clear Calc 11 Estimated GFR 6 L Glucose 167 H POC Capillary Glucose 140 H Calcium 7.8 L 04/10/19 04/10/19 04/10/19 20:10 17:19 16:51 WBC RBC Hgb Hct MCV MCH MCHC RDW Plt Count MPV Sodium 129 L Potassium Chloride Carbon Dioxide BUN Creatinine Estim Creat Clear Calc Estimated GFR Glucose POC Capillary Glucose 119 H 100 Calcium 04/10/1904/10
[2019-04-11 12:28] LABS: Glucose Point of Care 138 (65-105)
== END 2019-04-11 13:19 | DRG 640 ==
LOC: ANHED 15:03 → ANHIMU 17:32
PROVIDERS: Internal Medicine Nephrology; Physician Assistant; Admitting Provider Family Medicine; Emergency Provider Emergency Medicine; Visit Provider Family Medicine
DX: E87.79 Other fluid overload (principal); N18.6 End stage renal disease; J96.22 Acute and chronic respiratory failure with hypercapnia; I69.354 Hemiplegia and hemiparesis following cerebral infarction affecting left non-dominant side; E11.22 Type 2 diabetes mellitus with diabetic chronic kidney disease; E11.51 Type 2 diabetes mellitus with diabetic peripheral angiopathy without gangrene; E87.1 Hypo-osmolality and hyponatremia; G47.33 Obstructive sleep apnea (adult) (pediatric); D64.9 Anemia, unspecified; N40.0 Benign prostatic hyperplasia without lower urinary tract symptoms; K21.9 Gastro-esophageal reflux disease without esophagitis; E78.5 Hyperlipidemia, unspecified; Z99.2 Dependence on renal dialysis; Z79.4 Long term (current) use of insulin; Z86.718 Personal history of other venous thrombosis and embolism; Z87.891 Personal history of nicotine dependence; Z89.511 Acquired absence of right leg below knee
CPT/HCPCS: 36415; 36600; 71046; 80048; 82375; 82805; 83050; 83880; 84295; 85025; 85027; 85610; 85730; 86706; 87040; 87081; 87340; 90945; 93005; 94003; 99291; A9270; J1644

== ENCOUNTER 2019-04-13 03:49 | Inpatient (IN) | payer MEDICARE, MEDICAID, SELFPAY ==
[2019-04-13] VITALS (21 sets, daily range): BP systolic 80–140; BP diastolic 32–80; PULSE 53–66; RESP 16–21; TEMP 35.9–36.4; O2SAT 94–100; BMI 37.3
--- NOTE | ~2019-04-13 | XR_ITS ---
EXAMINATION: XR chest 1V portable DATE: 04/13/2019 04:11 INDICATION: Shortness of breath and cough. Altered mental status. TECHNIQUE: A single frontal view of the chest was obtained. COMPARISON: Chest 2 views 04/09/2019 FINDINGS: The lungs demonstrated diffuse interstitial pattern. There are mild airspace opacities in t he perihilar regions. No pleural effusion or pneumothorax. Cardiomegaly is noted. IMPRESSION: 1. Diffuse lung disease, likely mild pulmonary edema. 2. Cardiomegaly. Reviewed, dictated and finalized at location A. [facility]
--- NOTE | ~2019-04-13 | XR_ITS ---
EXAMINATION: XR chest port-a-cath/central DATE: 04/16/2019 13:34 INDICATION: Central line placement. TECHNIQUE: A single frontal view of the chest was obtained on 2 radiographs. COMPARISON: Chest single view 04/13/2019 FINDINGS: There is a diffuse interstitial pattern. There are mild airspace opacities in the perihilar regions and lower lung zones. No pleural effusion or pneumothorax. Cardiomegaly is noted. There is a right internal jugular central venous catheter with tip in right atrium. IMPRESSION: 1. Catheter tip in right atrium. No pneumothorax. 2. Diffuse lung disease with worsening in left lower lung zone, likely moderate pulmonary edema and a telectasis. Pneumonia cannot be excluded. 3. Cardiomegaly. Reviewed, dictated and finalized at location A. [facility] IMPRESSION: 1. Catheter tip in right atrium. No pneumothorax. 2. Diffuse lung disease with worsening in left lower lung zone, likely moderate pulmonary edema and atelectasis. Pneumonia cannot be excluded. 3. Cardiomegaly.
--- NOTE | ~2019-04-13 | XR_ITS ---
. EXAMINATION: XR fl guide central line place DATE: 04/16/2019 13:08 INDICATION: Central line placement. TECHNIQUE: A single intraoperative fluoroscopic view of the chest was obtained. I was not present. Fl uoroscopy exposure time was 192 seconds. COMPARISON: Chest single view 04/13/2019 FINDINGS: There is a right internal jugular central venous catheter with tip not included. IMPRESSION: 1. Right internal jugular central venous catheter placement. Reviewed, dictated and finalized at location A. AMBULATORY
[2019-04-13] MEDS: DEXTROSE 50% 25 GM/50 ML SYRINGE IV PUSH (03:55)
[2019-04-13 03:59] LABS: Glucose Point of Care 24 (65-105)
[2019-04-13 04:08] LABS: Basophils Percent Auto 0.7 % (0.2-1.2); Eosinophils Absolute Auto 0.2 K/mm3 (0-0.3); Eosinophils Percent Auto 2.6 % (0-4.4); Hematocrit 34.3 % (42.0-52.0); Hemoglobin 10.2 g/dL (14.0-18.0); Immature Granulocyte Absolute 0.02 K/mm3 (0.00-0.031); Immature Granulocyte Percent A 0.3 % (0-0.5); Lymphocytes Absolute Auto 0.74 K/mm3 (0.9-3.2); Lymphocytes Percent Auto 12.3 % (18.3-44.2); Mean Corpuscular HGB Conc 29.7 g/dl (32-36); Mean Corpuscular Hemoglobin 26.8 pg (26-34); Mean Corpuscular Volume 90.3 fl (80-100); Mean Platelet Volume 9.2 fl (7.4-10.4); Monocytes Absolute Auto 0.5 K/mm3 (0.1-0.6); Monocytes Percent Auto 8.6 % (2.6-8.5); Neutrophils Absolute Auto 4.6 K/mm3 (1.3-6.7); Neutrophils Percent Auto 75.5 % (45.5-73.1); Platelet Count Result 138 k/mm3 (150-375); Red Cell Distribution Width 16.1 % (11.5-14.5)
--- NOTE | 2019-04-13 04:14 | ED.GENADULT ---
HPI - General Adult General Chief complaint: Recheck/Abnormal Lab/Rx Stated complaint: weak ams Time Seen by Provider: 04/13/19 03:56 Source: old records reviewed History of Present Illness HPI narrative: Patient presents emergency department from [facility] via EMS for weakness. Patient states he woke up and felt very weak was having hard time opening his eyes. States he is currently on peritoneal dialysis but states he has been able to have dialysis for the past 2 days secondary to the peritoneal dialysis machine being broken at his facility. Patient was noted to have a blood sugar in the 20s by EMS and they were unable to place a IV patient was given glucagon. Patient states he did receive his insulin is normal this evening. He denies any fevers or chills chest pain shortness of breath abdominal pain or any other symptoms at this time Related Data Home Medications Medication Instructions Recorded Confirmed ProSource 10 ea PO BID 03/01/19 04/09/19 bisacodyl 10 mg MO DAILY PRN 03/01/19 04/09/19 cetirizine [Zyrtec] 10 mg PO DAILY 03/01/19 04/09/19 clopidogrel [Plavix] 75 mg PO DAILY 03/01/19 04/09/19 insulin lispro [Humalog U-100 1 sliding scale dose SUBCUT TIDWM 03/01/19 04/09/19 Insulin] ondansetron HCl [Zofran] 4 mg PO Q8H PRN 03/01/19 04/09/19 polyethylene glycol 3350 [Miralax] 17 g PO DAILY PRN 03/01/19 04/09/19 tamsulosin [Flomax] 0.4 mg PO DAILY 03/01/19 04/09/19 Lactobacillus acidophilus 100 mg PO BID 03/22/19 04/09/19 atorvastatin [Lipitor] 80 mg PO QPM 03/22/19 04/09/19 cholestyramine (with sugar) 2 g PO BID 03/22/19 04/09/19 [Questran] ferrous sulfate 325 mg PO DAILY 03/22/19 04/09/19 gabapentin 200 mg PO TID 03/22/19 04/09/19 gentamicin 1 applic TOPICAL HS 03/22/19 04/09/19 hydrocodone-acetaminophen 1 tablet PO Q6H PRN 03/22/19 04/09/19 levothyroxine 175 mcg PO DAILY 03/22/19 04/09/19 loratadine 10 mg PO DAILY PRN 03/22/19 04/09/19 metoprolol succinate [Toprol XL] 12.5 mg PO BID 03/22/19 04/09/19 primidone 50 mg PO BID 03/22/19 04/09/19 sevelamer HCl 1,600 mg PO TIDWM 03/22/19 04/09/19 aspirin [Aspirin Childrens] 81 mg PO DAILY 04/09/19 04/09/19 sevelamer HCl 1,600 mg PO PRN PRN 04/09/19 04/09/19 sulfamethoxazole-trimethoprim 1 tablet PO Q12H 04/09/19 04/09/19 [Bactrim DS] albuterol sulfate 0.63 mg INHALATION Q4H PRN 04/13/19 fluticasone furoate [Flonase 2 spray INTRANASAL BID 04/13/19 Sensimist] Allergies Allergy/AdvReac Type Severity Reaction Status Date / Time No Known Allergies Allergy Verified 04/13/19 04:30 Review of Systems Review of Systems: Narrative: Gen.: Denies fevers or chills Eyes: Denies eye pain or visual change ENT: Denies congestion Respiratory: Denies shortness of breath or cough CV: Denies chest pain or palpitations GI: Denies abdominal pain nausea, emesis or diarrhea ports peritoneal dialysis Musculoskeletal: Denies back pain or muscle pain Neuro: Reports weakness Skin: Denies rash Except as documented, all other systems reviewed and negative [facility] Past Medical History Medical History Benign prostatic hyperplasia C. difficile colitis Chronic anemia CVA (cerebral vascular accident) With mild left-sided weakness. End-stage renal disease on peritoneal dialysis GERD (gastroesophageal reflux disease) Hyperlipidemia Hypertension Hypothyroidism Insulin dependent type 2 diabetes mellitus Hemoglobin A1c was 6.4% in February 2019. Obstructive sleep apnea on CPAP Peripheral vascular disease Peritoneal dialysis catheter in place Surgical History Surgical History Hx of right BKA Social History Social History Social History: The patient lives at [facility]. He designates his , Vira, as his surrogate decision maker and he wishes to be a full code. He smoked up to 3 packs of cigarettes per day f
[2019-04-13 04:18] LABS: Alveolar/Arterial O2 Gradient 67.6 mmHg; Base Excess ABG -4.7 mEq/l (+/-2.0); Fractional Inspired Oxygen 28 %; HCO3 ABG 24.5 mEq/l (22.0-26.0); Oxygen Content ABG 12.2 %vol (16.0-22.0); Oxyhemoglobin 77.9 % THb (90.0-100.0); PO2 ABG 51.9 mmHg (80.0-100.0); PO2 FiO2 Ratio Arterial Blood 1.85 %; Total Hemoglobin 11.1 g/dL (12.0-18.0)
[2019-04-13 04:21] LABS: Oxygen Saturation ABG 76.5 % (95.0-100.0); PCO2 ABG 67.9 mmHg (35.0-45.0); pH ABG 7.175 (7.350-7.450)
[2019-04-13 04:24] LABS: INR 1.1; Prothrombin Time 13.6 Seconds (11.1-14.7)
[2019-04-13 04:25] LABS: Partial Thromboplastin Time 33.9 SECONDS (22.3-36.8)
[2019-04-13 04:29] LABS: Glucose Point of Care 86 (65-105)
[2019-04-13 04:31] LABS: Alanine Aminotransferase 13 U/L (4-50); Albumin Level 2.8 g/dL (3.5-5.1); Alkaline Phosphatase 104 U/L (38-126); Aspartate Amino Transferase 25 U/L (17-59); Bilirubin,Total 0.2 mg/dL (0.2-1.3); Blood Urea Nitrogen 60 mg/dL (9-20); Calcium 7.8 mg/dL (8.4-10.2); Carbon Dioxide 23 mmol/L (22-30); Chloride 89 mmol/L (98-107); Estimated CRCL calculation 10 ml/min; Estimated Glomerular Filt Rate 5; Glucose 33 mg/dL (75-110); Potassium 4.3 mmol/L (3.4-5.0); Sodium 128 mmol/L (137-145)
[2019-04-13 04:38] LABS: Ovalocytes 1+ (NORMAL)
[2019-04-13 04:39] LABS: Macrocytosis 1+ (NORMAL); Microcytosis 1+ (NORMAL)
[2019-04-13 04:54] LABS: Glucose Point of Care 109 (65-105)
[2019-04-13] MEDS: SODIUM CHLORIDE 0.9% IV 500 ML IV CONT (05:57)
[2019-04-13 06:03] LABS: Glucose Point of Care 122 (65-105)
--- NOTE | 2019-04-13 06:25 | ADMGEN ---
This patient, Aisha Carey, was admitted to IMU Room 232-01. Patient/family oriented to hospital policies and general routines including ID bracelet, bed and alarms, visiting hours, pain management, procedures, bathroom and other care routines, personal items, smoking policy, room service/diet, and visiting hours. Valuables list has been completed. Information on how to activate the Rapid Response Team has been discussed. Patient/Family are encouraged to report perceived risks to care and to ask questions if they do not understand what they are told or what they should do.
[2019-04-13 07:36] LABS: Glucose Point of Care 92 (65-105)
[2019-04-13 09:00] LABS: Glucose Point of Care 135 (65-105)
[2019-04-13 10:07] LABS: Glucose Point of Care 181 (65-105)
[2019-04-13 12:17] LABS: Glucose Point of Care 228 (65-105)
[2019-04-13 15:11] LABS: Glucose Point of Care 290 (65-105)
--- NOTE | 2019-04-13 15:39 | PM.CNNEP ---
Assessment and Plan Assessment and plan (1) End stage renal disease: Code(s): N18.6 - End stage renal disease Status: Chronic (2) Hypoglycemia: Code(s): E16.2 - Hypoglycemia, unspecified Status: Acute (3) Fluid overload: Code(s): E87.70 - Fluid overload, unspecified Status: Acute (4) Hyponatremia: Code(s): E87.1 - Hypo-osmolality and hyponatremia Status: Acute (5) Anemia: Code(s): D64.9 - Anemia, unspecified Status: Chronic (6) Hypotension: Code(s): I95.9 - Hypotension, unspecified Status: Acute Assessment and Plan: . Additional Plan Aisha has end-stage renal disease and is currently on peritoneal dialysis. He has had recurring admissions for volume overload although I am unclear how much of this is due to insufficiency of his peritoneal dialysis versus problems with his PD cycler causing this phenomenon. Since he has not had peritoneal dialysis for the last 48 hours, he is currently receiving a short treatment during the day and I will resume nightly peritoneal dialysis an effort to continue to maintain stability in his electrolytes, volume status, and clearance. He does have an AV fistula in place but is still immature to use and my hope is that we can ?stretch with peritoneal dialysis until his AV access is ready to be used for the transition to hemodialysis. If he continues to have ongoing admissions for fluid overload, we may have to consider placement of a tunneled dialysis catheter and institution of hemodialysis sooner than later although I do not think this is indicated at this time. I will continue follow patient with you while remains hospitalized and make further recommendations during his hospital course Thank you for allowing me participate in care this patient. History of Present Illness Reason for Consult Consult date: 04/13/19 Reason for consult: end stage renal disease Chief Complaint Chief complaint: hypoglycemia, fluid overload, chronic renal History of Present Illness Narrative: The patient is a 68-year-old male with an extensive medical history as outlined below who presented to [facility] ER via EMS from his nursing facility for evaluation of shortness of weakness. According to the patient, he woke up last night/early this AM and felt very weak with difficulty opening his eyes. He also mentions that he has been unable to do this periotoneal dialysis since his PD cycler at his nursing facility is reportedly broken. When EMS was called, it was noted that the patient had a blood sugar in the 20s and was given glucagon. He reports not other symptoms with regard to fevers, chills, chest pain, shortness of breath, abdominal pain, or any other systemic symptoms. Workup and evaluation in the emergency room demonstrated labs consistent sit consistent with his known history of end-stage renal disease and imaging studies also demonstrated some degree of mild volume overload. Presumably this is due to the fact that he has not been able to receive dialysis for 2 days. Interestingly, the patient was just discharged 48 hours ago from this facility for volume overload and I am unclear if that hospitalization was precipitated by the same issue which is that his PD cycler was not working/functioning well. Renal consultation was requested due to his end-stage renal disease. The patient normally does peritoneal dialysis as nursing facility but is in the process of transitioning to hemodialysis as it is felt that his peritoneal dialysis is not being as effective as it once was in maintain his volume status. Given that he had 3 - 4 admission to the hospital for volume overload, this this seems quite apparent now. He is currently receiving peritoneal dialysis at the time of my visit and will re-instituted on peritoneal dialysis this evention as well Currently, he does not appear to be in acute distress and does state his breathing is better.
--- NOTE | 2019-04-13 16:25 | PM.IMHP ---
H&P: HPI History of Present Illness Chief complaint: hypoglycemia, fluid overload, chronic renal Narrative: Aisha Carey is a 68 year old male stroke with left-sided weakness, type 2 diabetes mellitus, obstructive sleep apnea, hypertension, and end-stage renal disease on peritoneal dialysis who presented to the emergency department earlier this afternoon via EMS from [facility] for evaluation of confusion, hypoglycemia. Pt is on PD dialysis in [facility] and [facility]. Unsure if he was doing dialysis correctly or his PD machine was not working properly. But he is edematous again and sOB, needing BIPAP. Mildly confused but improving. Pt is currently on PD machine Review of Systems Review of Systems: ROS unobtainable: unobtainable due to mental status PMFSH Past Medical History Medical History Benign prostatic hyperplasia C. difficile colitis Chronic anemia CVA (cerebral vascular accident) With mild left-sided weakness. End-stage renal disease on peritoneal dialysis GERD (gastroesophageal reflux disease) Hyperlipidemia Hypertension Hypothyroidism Insulin dependent type 2 diabetes mellitus Hemoglobin A1c was 6.4% in February 2019. Obstructive sleep apnea on CPAP Peripheral vascular disease Peritoneal dialysis catheter in place Surgical History Surgical History Hx of right BKA Family History Family History Father History of blood clots Acute myocardial infarction Leukemia Mother History of blood clots Social History Social History Social History: The patient lives at [facility]. He designates his , Vira, as his surrogate decision maker and he wishes to be a full code. He smoked up to 3 packs of cigarettes per day for 40 years and reportedly quit in 1999. He denies alcohol and drug use. Smoking packs per day: 3 Smoking cigarettes per day: 60.0 Years smoked: 40 Smoking pack-years: 120.00 Smoking status: Former smoker Tobacco type: cigarettes Smoking end date: 03/22/19 Alcohol intake: unknown Substance use: unknown Substance use type: does not use Additional living arrangements comments: Pt lives at [facility]. Gender identity (if verbalized by the patient): Male Spiritual care concerns: No Agree to blood products: Yes Meds Home Medications and Allergies Home Medications Medication Instructions Recorded Confirmed Type ProSource 10 ea PO BID 03/01/19 04/13/19 History bisacodyl 10 mg [place] DAILY PRN 03/01/19 04/13/19 History cetirizine [Zyrtec] 10 mg PO DAILY 03/01/19 04/13/19 History clopidogrel [Plavix] 75 mg PO DAILY 03/01/19 04/13/19 History insulin lispro [Humalog U-100 1 sliding scale dose SUBCUT TIDWM 03/01/19 04/13/19 History Insulin] ondansetron HCl [Zofran] 4 mg PO Q8H PRN 03/01/19 04/13/19 History polyethylene glycol 3350 [Miralax] 17 g PO DAILY PRN 03/01/19 04/13/19 History tamsulosin [Flomax] 0.4 mg PO DAILY 03/01/19 04/13/19 History Lactobacillus acidophilus 100 mg PO BID 03/22/19 04/13/19 History atorvastatin [Lipitor] 80 mg PO QPM 03/22/19 04/13/19 History cholestyramine (with sugar) 2 g PO BID 03/22/19 04/13/19 History [Questran] ferrous sulfate 325 mg PO DAILY 03/22/19 04/13/19 History gabapentin 200 mg PO TID 03/22/19 04/13/19 History gentamicin 1 applic TOPICAL HS 03/22/19 04/13/19 History hydrocodone-acetaminophen 1 tablet PO Q6H PRN 03/22/19 04/13/19 History levothyroxine 175 mcg PO DAILY 03/22/19 04/13/19 History loratadine 10 mg PO DAILY PRN 03/22/19 04/13/19 History metoprolol succinate [Toprol XL] 12.5 mg PO BID 03/22/19 04/13/19 History primidone 50 mg PO BID 03/22/19 04/13/19 History sevelamer HCl 1,600 mg PO TIDWM 03/22/19 04/13/19 History aspirin [Aspirin Childrens] 81 mg PO DAILY
[2019-04-13 17:40] LABS: Glucose Point of Care 257 (65-105)
[2019-04-13] MEDS: FLUTICASONE PROPIONATE 0.05% NA SPR 16 GM BTL (*BKC) 2 SPRAY NASAL (17:59)
[2019-04-13] MEDS: INSULIN ASPART (*BKC) 100 UNITS/ML SUB-Q (17:59)
[2019-04-13] MEDS: PHENYLEPH/SHARK OIL/MO/PETROL CREAM 26 GM 1 APPLIC RECTAL (19:48)
[2019-04-13 20:19] LABS: Alveolar/Arterial O2 Gradient 27.5 mmHg; Base Excess ABG -7.1 mEq/l (+/-2.0); Fractional Inspired Oxygen 32 %; HCO3 ABG 23.9 mEq/l (22.0-26.0); Oxygen Content ABG 16.1 %vol (16.0-22.0); Oxygen Saturation ABG 95.4 % (95.0-100.0); Oxyhemoglobin 95.1 % THb (90.0-100.0); PO2 ABG 106.2 mmHg (80.0-100.0); PO2 FiO2 Ratio Arterial Blood 3.32 %; Total Hemoglobin 11.9 g/dL (12.0-18.0)
[2019-04-13 20:21] LABS: PCO2 ABG 80.7 mmHg (35.0-45.0)
[2019-04-13 20:22] LABS: Device NASAL CANNULA; Modified Allen's Test Pass; Site Drawn RIGHT RADIAL
[2019-04-13] MEDS: GENTAMICIN SULFATE 0.1% CR 15 GM TUBE 1 APPLIC TOPICAL (20:48)
[2019-04-13 21:00] LABS: Glucose Point of Care 167 (65-105)
[2019-04-14] VITALS (15 sets, daily range): BP systolic 94–153; BP diastolic 41–108; PULSE 60–73; RESP 16–30; TEMP 36.2–37.2; O2SAT 89–99
[2019-04-14 05:15] LABS: Basophils Percent Auto 0.3 % (0.2-1.2); Eosinophils Absolute Auto 0.3 K/mm3 (0-0.3); Eosinophils Percent Auto 4.3 % (0-4.4); Hematocrit 36.8 % (42.0-52.0); Hemoglobin 10.8 g/dL (14.0-18.0); Immature Granulocyte Absolute 0.01 K/mm3 (0.00-0.031); Immature Granulocyte Percent A 0.2 % (0-0.5); Lymphocytes Absolute Auto 0.55 K/mm3 (0.9-3.2); Lymphocytes Percent Auto 8.7 % (18.3-44.2); Mean Corpuscular HGB Conc 29.3 g/dl (32-36); Mean Corpuscular Hemoglobin 26.6 pg (26-34); Mean Corpuscular Volume 90.6 fl (80-100); Mean Platelet Volume 9.5 fl (7.4-10.4); Monocytes Absolute Auto 0.6 K/mm3 (0.1-0.6); Monocytes Percent Auto 9.8 % (2.6-8.5); Neutrophils Absolute Auto 4.9 K/mm3 (1.3-6.7); Neutrophils Percent Auto 76.7 % (45.5-73.1); Platelet Count Result 151 k/mm3 (150-375); Red Blood Count 4.06 M/mm3 (4.6-6.20); Red Cell Distribution Width 15.9 % (11.5-14.5); White Blood Count 6.3 K/mm3 (4.5-10.0)
[2019-04-14 05:28] LABS: Blood Urea Nitrogen 54 mg/dL (9-20); Calcium 8.1 mg/dL (8.4-10.2); Carbon Dioxide 25 mmol/L (22-30); Chloride 89 mmol/L (98-107); Estimated CRCL calculation 10 ml/min; Estimated Glomerular Filt Rate 5; Glucose 192 mg/dL (75-110); Potassium 3.6 mmol/L (3.4-5.0); Sodium 131 mmol/L (137-145)
[2019-04-14 05:59] LABS: Alveolar/Arterial O2 Gradient 141.4 mmHg; Fractional Inspired Oxygen 40 %; HCO3 ABG 22.7 mEq/l (22.0-26.0); Oxygen Content ABG 15.6 %vol (16.0-22.0); Oxygen Saturation ABG 91.4 % (95.0-100.0); Oxyhemoglobin 92.3 % THb (90.0-100.0); PO2 ABG 74.8 mmHg (80.0-100.0); PO2 FiO2 Ratio Arterial Blood 1.87 %
[2019-04-14 06:00] LABS: Device NON-INVASIVE VENT; Modified Allen's Test Unable to perform; Site Drawn RIGHT RADIAL; pH ABG 7.196 (7.350-7.450)
[2019-04-14 06:01] LABS: Non-Invasive Expiratory Pressure 10 CMH2O; Non-Invasive Inspiratory Pressure 20 CMH2O; Non-Invasive Vent Rate 18 /MIN
[2019-04-14 07:54] LABS: Glucose Point of Care 129 (65-105)
[2019-04-14] MEDS: FLUTICASONE PROPIONATE 0.05% NA SPR 16 GM BTL (*BKC) 2 SPRAY NASAL ×2 (08:09→16:46)
[2019-04-14] MEDS: SILVERGEL (ELTA) 45 ML 1 APPLIC TOPICAL (08:09)
[2019-04-14] MEDS: EUCERIN CREAM 120 GM JAR 1 APPLIC TOPICAL (08:10)
[2019-04-14] MEDS: PHENYLEPH/SHARK OIL/MO/PETROL CREAM 26 GM 1 APPLIC RECTAL ×3 (08:11→16:45)
[2019-04-14 11:40] LABS: Glucose Point of Care 113 (65-105)
--- NOTE | 2019-04-14 11:48 | PC.NURSE ---
This patient, Aisha Carey, was received from IMU on 04/14/19 at 1253. Personal belongings list checked and signed. Patient/family oriented to unit policies and routines
--- NOTE | 2019-04-14 14:40 | PM.PNNEP ---
Progress Note: A&P Assessment and Plan (1) End stage renal disease: Code(s): N18.6 - End stage renal disease Status: Chronic Assessment and Plan: continue CCPD overnight as tolerated given the limitations of his peritoneal membrane, requires more 4.25% dianeal to acheive ultrafiltration follow ultrafiltration, electrolytes, volume status, and clearance probably need to verify with nursing facility if PD cycler is functioning or not - if PD cycler is not working, then will need new machine PRIOR to discharge (2) Hypoglycemia: Code(s): E16.2 - Hypoglycemia, unspecified Status: Acute Assessment and Plan: probably doing better by use of higher dextrose containing PD fluid follow accuchecks (3) Fluid overload: Code(s): E87.70 - Fluid overload, unspecified Status: Acute Assessment and Plan: doing better with more aggressive peritoneal dialysis follow respiratory status clinically better (4) Hyponatremia: Code(s): E87.1 - Hypo-osmolality and hyponatremia Status: Acute Assessment and Plan: related to fluid overload and ESRD follow trend as suspect some improvement once attains euvolemis (5) Anemia: Code(s): D64.9 - Anemia, unspecified Status: Chronic Assessment and Plan: related to ESRD start Epogen while hospitalized (6) Hypotension: Code(s): I95.9 - Hypotension, unspecified Status: Acute Assessment and Plan: BP doing better follow trend of hemodynamics Will continue to follow. Subjective Date/time seen: 04/14/19 14:40 Tolerating peritoneal dialysis overnight without any issues or problems; breathing/respiratory status seems stable if not improving; no apparent distress noted at this time. Exam Narrative: Exam Narrative: General: WD/WN male in NAD Heart: normal S1 and S2; no rub Lungs: decreased at bases Abdomen: soft, nontender, nondistended, positive bowel sounds Extremities: no cyanosis or clubbing; no edema; s/p right AKA Skin: warm and dry Objective Data Vital Signs Vital Signs: Vital Signs Temp Pulse Resp BP Pulse Ox 04/14/19 11:50 36.6 C 71 16 105/41 L 97 04/14/19 09:27 36.3 C L 69 16 137/108 H 04/14/19 08:00 36.3 C L 69 16 137/108 H 99 04/14/19 06:02 63 30 H 96 04/14/19 06:00 64 04/14/19 04:24 37.2 C 63 18 94/47 L 98 04/14/19 04:00 65 04/14/19 01:39 62 04/14/19 00:21 36.2 C L 60 16 136/50 L 96 04/14/19 00:00 61 04/13/19 22:00 63 04/13/19 20:06 35.9 C L 53 L 16 138/80 04/13/19 20:00 36.1 C L 62 16 140/40 L 96 04/13/19 19:15 35.9 C L 53 L 16 138/80 04/13/19 18:00 63 04/13/19 17:47 95 04/13/19 16:00 35.9 C L 59 L 16 138/80 97 04/13/19 15:06 57 L Intake/Output Intake/Output: Intake & Output 04/11/19 04/12/19 04/13/19 04/14/19 23:59 23:59 23:59 23:59 Intake Total 980 770 Output Total 1575 1792 Balance -595 -1022 Meds/Results Medications: Active Medications Generic Name Dose Route Start Last Admin Trade Name Freq PRN Reason Stop Dose Admin Hydrocodone Bitart/Acetaminophen 1 tab 04/13/19 16:21 [place] 5-325 Mg PO Q6H PRN Pain Dextrose 12.5 gm 04/13/19 05:03 Dextrose 50% Syringe IV PUSH PRN PRN Hypoglycemia Protocol Fluticasone Propionate 2 spray 04/13/19 17:00 04/14/19 08:09 Flonase 0.05% Nasal [place] NASAL 2 spray BID RJ Administration Gentamicin Sulfate 1 applic 04/13/19 21:00 04/13/19 20:48 Gentamicin Sulfate 0.1% Cr TOPICAL 1 applic HS RJ Administration Glucagon 1 mg 04/13/19 05:03 Glucagon For Inj IM PRN PRN Hypoglycemia Protocol Glucose 15 gm 04/13/19 05:03 Glutose 15 PO PRN PRN Hypoglycemia Protocol Dextrose 1,000 mls @ 100 mls/hr 04/13/19 05:03 Dextrose 5% 1,000 Ml IVPB PRN PRN Hypoglycemia
--- NOTE | 2019-04-14 16:38 | PM.IMPN ---
Progress Note: A&P Assessment and Plan (1) Insulin dependent type 2 diabetes mellitus: Code(s): E11.9 - Type 2 diabetes mellitus without complications; Z79.4 - rn long term care (current) use of insulin Status: Acute Assessment and Plan: Hemoglobin A1c last month was 6.4%. Continue basal insulin. Initiate sliding scale insulin, Accu-Cheks, and hypoglycemic protocol. (2) Peritoneal dialysis catheter mechanical complication: Qualifiers: Encounter type: initial encounter Qualified Code(s): T85.691A - Other mechanical complication of intraperitoneal dialysis catheter, initial encounter Code(s): T85.691A - Other mechanical complication of intraperitoneal dialysis catheter, initial encounter Status: Acute Assessment and Plan: Pt is suppodisly doing peritoneal dialysis for himself (3) DVT prophylaxis: Code(s): Z29.9 - Encounter for prophylactic measures, unspecified Status: Acute Assessment and Plan: SCDs (4) End stage renal disease: Code(s): N18.6 - End stage renal disease Status: Chronic Assessment and Plan: Awaiting hemodilaysis Pt is suppodisly doing peritoneal dialysis for himself Dr. Joy on the case AV fistula is in place in the left upper extremity, not yet mature. (5) Pulmonary edema: Code(s): J81.1 - Chronic pulmonary edema Status: Acute Assessment and Plan: Pt receiving PD dialysis (6) Acute respiratory failure: Qualifiers: Respiratory failure complication: hypoxia and hypercapnia Qualified Code(s): J96.01 - Acute respiratory failure with hypoxia; J96.02 - Acute respiratory failure with hypercapnia Code(s): J96.00 - Acute respiratory failure, unspecified whether with hypoxia or hypercapnia Status: Acute Assessment and Plan: Patient with acute on chronic respiratory failure, with hypercarbia. Pt is on bipap prn and oxygen restart oral meds Subjective Date/time seen: 04/14/19 16:38 Interval history: Aisha Carey is a 68 year old male stroke with left-sided weakness, type 2 diabetes mellitus, obstructive sleep apnea, hypertension, and end-stage renal disease on peritoneal dialysis who presented to the emergency department earlier this afternoon via EMS from [facility] for evaluation of confusion, hypoglycemia. Pt is on PD dialysis in [facility] and R. Unsure if he was doing dialysis correctly or his PD machine was not working properly. Pt breathing is better and he less SOB. Discussed with pt he wants to go to another NH, [facility] and [facility] not helping him with his PD dialysis or may need a new machine. Review of Systems Review of Systems: All systems reviewed & are unremarkable except as noted in HPI and below Exam Narrative: Exam Narrative: Exam Narrative: comfortable General: Disoriented x2, on oxygen HEENT: Normocephalic Neck: Supple. Respiratory: clear breath sounds Cardiovascular: Regular rate and rhythm with S1-S2. Heart sounds are distant. Gastrointestinal: Abdomen is soft, nontender, and nondistended with positive bowel sounds. Skin: Warm and dry. Patient reports a shallow ulceration to the proximal aspect of the dorsum of the left foot. Extremities: No cyanosis or clubbing. Neurological: Alert and oriented, however he has to be woken up several times to complete these answers.. Cranial nerves 2-12 are grossly intact, able to move his limbs Psychiatric: not confused Objective Data Vital Signs Vital Signs: Vital Signs - 24 hr 04/13/19 17:47 04/13/19 18:00 04/13/19 19:15 Temperature 35.9 C L Pulse Rate 63 53 L Respiratory Rate 16 Blood Pressure 138/80 Pulse Oximetry 95 04/13/19 20:00 04/13/19 20:06 04/13/19 22:00 Temperature 36.1 C L 35.9 C L Pulse Rate 62 53 L 63 Respiratory Rate 16 16 Blood Pressure 140/40 L 138/80 Pulse Oximetry 96 04/14/19 00:00 04/14/19 00:21 04/14/19 01:39 Temperature 36.2 C L P
[2019-04-14] MEDS: PRIMIDONE 50 MG TABLET PO (18:28)
[2019-04-14] MEDS: ACIDOPHILUS/BULGARICUS CHEWABLE TABLET 1 TABLET PO (18:28)
[2019-04-14] MEDS: GABAPENTIN 100 MG CAPSULE 200 MG PO (18:28)
[2019-04-14] MEDS: SEVELAMER CARBONATE 800 MG TABLET 1600 MG PO (18:29)
[2019-04-14] MEDS: ATORVASTATIN 40 MG TABLET 80 MG PO (18:29)
[2019-04-14 19:41] LABS: Glucose Point of Care 123 (65-105)
[2019-04-14] MEDS: METOPROLOL SUCCINATE EXT REL 12.5 MG TABCR PO (21:25)
[2019-04-14] MEDS: GENTAMICIN SULFATE 0.1% CR 15 GM TUBE 1 APPLIC TOPICAL (21:27)
[2019-04-14 21:47] LABS: Glucose Point of Care 157 (65-105)
[2019-04-15] VITALS (15 sets, daily range): BP systolic 84–112; BP diastolic 33–47; PULSE 59–77; RESP 16–26; TEMP 36.5–37.1; O2SAT 91–97
[2019-04-15] MEDS: LEVOTHYROXINE SODIUM 75 MCG TABLET PO (06:26)
[2019-04-15] MEDS: LEVOTHYROXINE SODIUM 100 MCG TABLET PO (06:26)
[2019-04-15] MEDS: SODIUM CHLORIDE 0.9% IV 500 ML 999 ML IV CONT (06:48)
[2019-04-15 07:34] LABS: Hematocrit 33.8 % (42.0-52.0); Hemoglobin 10.1 g/dL (14.0-18.0); Mean Corpuscular HGB Conc 29.9 g/dl (32-36); Mean Corpuscular Hemoglobin 27.2 pg (26-34); Mean Corpuscular Volume 90.9 fl (80-100); Mean Platelet Volume 9.3 fl (7.4-10.4); Platelet Count Result 133 k/mm3 (150-375); Red Blood Count 3.72 M/mm3 (4.6-6.20); White Blood Count 5.3 K/mm3 (4.5-10.0)
[2019-04-15 07:38] LABS: Blood Urea Nitrogen 52 mg/dL (9-20); Calcium 7.7 mg/dL (8.4-10.2); Carbon Dioxide 24 mmol/L (22-30); Chloride 91 mmol/L (98-107); Estimated CRCL calculation 10 ml/min; Estimated Glomerular Filt Rate 5; Glucose 142 mg/dL (75-110); Potassium 3.6 mmol/L (3.4-5.0); Sodium 130 mmol/L (137-145)
[2019-04-15 07:58] LABS: Device NASAL CANNULA
--- NOTE | 2019-04-15 08:17 | PM.PNNEP ---
Progress Note: A&P Assessment and Plan (1) End stage renal disease: Code(s): N18.6 - End stage renal disease Status: Chronic Assessment and Plan: continue CCPD overnight as tolerated He is having to problems with his dialysis. One is that he isn't able to keep the fluid off when he is at the nursing facility. The other is that his creatinine is 10 and he has asterixis and so his peritoneal dialysis is not doing enough. I talked to him at length. I think he should be back on hemo. If we do not switch, then he will probably continue to be admitted frequently for fluid overload and his uremia will continue or possibly worsen. I suggest we put a PermCath in tomorrow and start dialysis once it is ready. (2) Hypoglycemia: Code(s): E16.2 - Hypoglycemia, unspecified Status: Acute Assessment and Plan: On Accu-Cheks (3) Fluid overload: Code(s): E87.70 - Fluid overload, unspecified Status: Acute Assessment and Plan: doing better with more aggressive peritoneal dialysis and monitoring of his fluid intake No shortness of breath today clinically better (4) Hyponatremia: Code(s): E87.1 - Hypo-osmolality and hyponatremia Status: Acute Assessment and Plan: related to fluid overload and ESRD follow trend as suspect some improvement once attains euvolemia He probably drinks too much water compared to how much salt he eats. (5) Anemia: Code(s): D64.9 - Anemia, unspecified Status: Chronic Assessment and Plan: related to ESRD On Epogen (6) Hypotension: Code(s): I95.9 - Hypotension, unspecified Status: Acute Assessment and Plan: BP doing better follow trend of hemodynamics Subjective Date/time seen: 04/15/19 08:17 Interval history: Patient is alert. He has a tremor. He is hungry for breakfast. He is on PD and tolerating it well he was seen at 8:10 a.m. Review of Systems Cardiovascular: Cardiovascular: Reports no additional cardiovascular complaints Respiratory: Respiratory: Reports no additional respiratory complaints Gastrointestinal: Gastrointestinal: Reports no additional gastrointestinal complaints Genitourinary: Genitourinary: Reports no additional male genitourinary complaints Exam Narrative: Exam Narrative: Well developed well-nourished in no acute distress Lungs clear Heart regular without rub Abdomen bowel sounds positive soft nontender Extremities no edema Skin no rash Neuro he has asterixis Objective Data Vital Signs Vital Signs: Vital Signs - 24 hr 04/14/19 09:27 04/14/19 11:50 04/14/19 14:00 Temperature 36.3 C L 36.6 C 36.6 C Pulse Rate 69 71 71 Respiratory Rate 16 16 16 Blood Pressure 137/108 H 105/41 L 101/42 L Pulse Oximetry 97 98 04/14/19 19:36 04/14/19 21:25 04/14/19 22:00 Temperature 36.6 C 36.6 C Pulse Rate 71 72 73 Respiratory Rate 16 16 Blood Pressure 101/42 L 153/95 H Pulse Oximetry 89 L 04/14/19 23:13 04/15/19 01:46 04/15/19 04:20 Temperature Pulse Rate 66 77 71 Respiratory Rate 26 H 26 H 21 H Blood Pressure Pulse Oximetry 97 92 94 04/15/19 05:48 04/15/19 06:30 Temperature 36.6 C Pulse Rate 59 L Respiratory Rate 16 Blood Pressure 84/47 L Pulse Oximetry 92 97 Intake/Output Intake/Output: Intake & Output 04/12/19 04/13/19 04/14/19 04/15/19 23:59 23:59 23:59 23:59 Intake Total 980 890 560 Output Total 1572 1792 Balance -595 -902 560 Meds/Results Medications: Active Medications Generic Name Dose Route Start Last Admin Trade Name Freq PRN Reason Stop Dose Admin Hydrocodone Bitart/Acetaminophen 1 tab 04/13/19 16:21 [place] 5-325 Mg PO Q6H PRN Pain Aspirin 81 mg 04/15/19 09:00 Aspirin Chewable PO DAILY RJ Atorvastatin Calcium 80 mg 04/14/19 18:00 04/14/19 18:29 Lipitor PO 80 mg QPM [facility] Administration Bisacodyl 10 mg 04/14/19 16:43 Dulcolax
[2019-04-15] MEDS: SEVELAMER CARBONATE 800 MG TABLET 1600 MG PO ×3 (08:29→17:12)
[2019-04-15] MEDS: GABAPENTIN 100 MG CAPSULE 200 MG PO ×3 (08:30→17:13)
[2019-04-15] MEDS: METOPROLOL SUCCINATE EXT REL 12.5 MG TABCR PO ×2 (08:30→21:13)
[2019-04-15] MEDS: ASPIRIN 81 MG CHEWABLE TABLET PO (08:31)
[2019-04-15] MEDS: FERROUS SULFATE 324 MG TABLET PO (08:32)
[2019-04-15] MEDS: CLOPIDOGREL BISULFATE 75 MG TABLET PO (08:32)
[2019-04-15] MEDS: ACIDOPHILUS/BULGARICUS CHEWABLE TABLET 1 TABLET PO ×2 (08:32→17:16)
[2019-04-15] MEDS: FLUTICASONE PROPIONATE 0.05% NA SPR 16 GM BTL (*BKC) 2 SPRAY NASAL ×2 (08:33→17:14)
[2019-04-15] MEDS: EUCERIN CREAM 120 GM JAR 1 APPLIC TOPICAL (08:34)
[2019-04-15] MEDS: TAMSULOSIN HCL 0.4 MG CAPSULE PO (08:35)
[2019-04-15] MEDS: GENTAMICIN SULFATE 0.1% CR 15 GM TUBE 1 APPLIC TOPICAL (08:42)
[2019-04-15 12:06] LABS: Glucose Point of Care 134 (65-105)
[2019-04-15] MEDS: PHENYLEPH/SHARK OIL/MO/PETROL CREAM 26 GM 1 APPLIC RECTAL ×3 (12:09→17:12)
[2019-04-15] MEDS: PRIMIDONE 50 MG TABLET PO ×2 (12:10→17:12)
[2019-04-15] MEDS: SILVERGEL (ELTA) 45 ML 1 APPLIC TOPICAL (12:10)
--- NOTE | 2019-04-15 15:18 | PM.IMPN ---
Progress Note: A&P Assessment and Plan (1) Insulin dependent type 2 diabetes mellitus: Code(s): E11.9 - Type 2 diabetes mellitus without complications; Z79.4 - [employer] (current) use of insulin Status: Acute Assessment and Plan: Hemoglobin A1c last month was 6.4%. Continue basal insulin. Initiate sliding scale insulin, Accu-Cheks, and hypoglycemic protocol. (2) Peritoneal dialysis catheter mechanical complication: Qualifiers: Encounter type: initial encounter Qualified Code(s): T85.691A - Other mechanical complication of intraperitoneal dialysis catheter, initial encounter Code(s): T85.691A - Other mechanical complication of intraperitoneal dialysis catheter, initial encounter Status: Acute Assessment and Plan: Pt is suppodisly doing peritoneal dialysis for himself 04/15/19 15:18 Aisha Carey is a 68 year old male stroke with left-sided weakness, type 2 diabetes mellitus, obstructive sleep apnea, hypertension, and end-stage renal disease on peritoneal dialysis who presented to the emergency department via EMS from [facility] for evaluation of confusion, hypoglycemia. Pt is on PD dialysis in [facility]. . Unsure if he was doing dialysis correctly or his PD machine was not working properly. Pt breathing is better and he less SOB. Patient seen by Dr. Calabrese recommending to stop the peritoneal dialysis and and switch over to hemodialysis patient will PermCath tomorrow patient is agreeable to the plan this will benefit in the long run, today is feeling much better denies any shortness of breath fever or chills, denies any abdominal pain nausea or vomiting, he is still somewhat confused (3) DVT prophylaxis: Code(s): Z29.9 - Encounter for prophylactic measures, unspecified Status: Acute Assessment and Plan: SCDs (4) End stage renal disease: Code(s): N18.6 - End stage renal disease Status: Chronic Assessment and Plan: Awaiting hemodilaysis Pt is suppodisly doing peritoneal dialysis for himself Dr. Joy on the case AV fistula is in place in the left upper extremity, not yet mature. (5) Pulmonary edema: Code(s): J81.1 - Chronic pulmonary edema Status: Acute Assessment and Plan: Pt receiving PD dialysis (6) Acute respiratory failure: Qualifiers: Respiratory failure complication: hypoxia and hypercapnia Qualified Code(s): J96.01 - Acute respiratory failure with hypoxia; J96.02 - Acute respiratory failure with hypercapnia Code(s): J96.00 - Acute respiratory failure, unspecified whether with hypoxia or hypercapnia Status: Acute Assessment and Plan: Patient with acute on chronic respiratory failure, with hypercarbia. Pt is on bipap prn and oxygen restart oral meds Subjective Date/time seen: 04/15/19 15:18 Aisha Carey is a 68 year old male stroke with left-sided weakness, type 2 diabetes mellitus, obstructive sleep apnea, hypertension, and end-stage renal disease on peritoneal dialysis who presented to the emergency department via EMS from [facility] for evaluation of confusion, hypoglycemia. Pt is on PD dialysis in [facility]. . Unsure if he was doing dialysis correctly or his PD machine was not working properly. Pt breathing is better and he less SOB. Patient seen by Dr. Calabrese recommending to stop the peritoneal dialysis and and switch over to hemodialysis patient will PermCath tomorrow patient is agreeable to the plan this will benefit in the long run, today is feeling much better denies any shortness of breath fever or chills, denies any abdominal pain nausea or vomiting, he is still somewhat confused Review of Systems Review of Systems: Narrative: as per HPI Exam Narrative: Exam Narrative: Moderately obese Const: General: comfortable and no acute distress HENMT: General nose exam: Normal nares present Mouth: Yes moist mucous membranes Eyes: General:
[2019-04-15] MEDS: ATORVASTATIN 40 MG TABLET 80 MG PO (17:15)
[2019-04-15 18:35] LABS: Glucose Point of Care 171 (65-105)
[2019-04-15 20:22] LABS: Glucose Point of Care 94 (65-105)
[2019-04-16] VITALS (24 sets, daily range): BP systolic 77–118; BP diastolic 32–60; PULSE 64–88; RESP 14–30; TEMP 36.1–37.2; O2SAT 88–100
[2019-04-16] MEDS: LEVOTHYROXINE SODIUM 75 MCG TABLET PO (05:42)
[2019-04-16] MEDS: LEVOTHYROXINE SODIUM 100 MCG TABLET PO (05:43)
[2019-04-16] MEDS: CHLORHEXIDINE GLUCONATE 4% SOL 120 ML BTL 1 APPLIC TOPICAL (05:47)
[2019-04-16 06:01] LABS: Hematocrit 33.6 % (42.0-52.0); Hemoglobin 9.7 g/dL (14.0-18.0); Mean Corpuscular HGB Conc 28.9 g/dl (32-36); Mean Corpuscular Hemoglobin 26.6 pg (26-34); Mean Corpuscular Volume 92.3 fl (80-100); Mean Platelet Volume 9.3 fl (7.4-10.4); Platelet Count Result 130 k/mm3 (150-375); Red Blood Count 3.64 M/mm3 (4.6-6.20); Red Cell Distribution Width 16.1 % (11.5-14.5); White Blood Count 4.8 K/mm3 (4.5-10.0)
--- NOTE | 2019-04-16 06:24 | PC.NURSE ---
Dialysis terminated per Dialysis nurse, catheter disconnected using sterile field, patient resting comfortably with no complaints at this time. Initialized on 04/16/19 02:20 - END OF NOTE
[2019-04-16 06:42] LABS: Albumin Level 2.7 g/dL (3.5-5.1); Blood Urea Nitrogen 60 mg/dL (9-20); Calcium 7.7 mg/dL (8.4-10.2); Carbon Dioxide 25 mmol/L (22-30); Chloride 90 mmol/L (98-107); Estimated CRCL calculation 9 ml/min; Estimated Glomerular Filt Rate 4; Glucose 88 mg/dL (75-110); Phosphorus 7.6 mg/dL (2.5-4.5); Sodium 130 mmol/L (137-145)
[2019-04-16 07:54] LABS: Glucose Point of Care 92 (65-105)
[2019-04-16] MEDS: METOPROLOL SUCCINATE EXT REL 12.5 MG TABCR PO ×2 (08:23→21:30)
[2019-04-16] MEDS: SILVERGEL (ELTA) 45 ML 1 APPLIC TOPICAL (08:24)
[2019-04-16] MEDS: FLUTICASONE PROPIONATE 0.05% NA SPR 16 GM BTL (*BKC) 2 SPRAY NASAL (08:24)
[2019-04-16] MEDS: EUCERIN CREAM 120 GM JAR 1 APPLIC TOPICAL (08:25)
[2019-04-16] MEDS: PHENYLEPH/SHARK OIL/MO/PETROL CREAM 26 GM 1 APPLIC RECTAL (08:27)
--- NOTE | 2019-04-16 09:38 | PC.NURSE ---
To OR per bed, IV #20 left FA (DION). Family at bedside (Vira). SBAR faxed and IV antibiotic sent.
--- NOTE | 2019-04-16 09:38 | PM.PNNEP ---
Progress Note: A&P Assessment and Plan (1) End stage renal disease: Code(s): N18.6 - End stage renal disease Status: Chronic Assessment and Plan: Once hemo cath is in we can abandon peritoneal dialysis. He is set up for hemodialysis today depending on when his catheter is placed. I talked with the . She will talk with his PD nurse and help with arranging for his hemodialysis at [facility] (2) Hypoglycemia: Code(s): E16.2 - Hypoglycemia, unspecified Status: Acute Assessment and Plan: On Accu-Cheks (3) Fluid overload: Code(s): E87.70 - Fluid overload, unspecified Status: Acute Assessment and Plan: doing better with more aggressive peritoneal dialysis and monitoring of his fluid intake Feeling better (4) Hyponatremia: Code(s): E87.1 - Hypo-osmolality and hyponatremia Status: Acute Assessment and Plan: Told to avoid excess water drinking (5) Anemia: Code(s): D64.9 - Anemia, unspecified Status: Chronic Assessment and Plan: related to ESRD On Epogen (6) Hypotension: Code(s): I95.9 - Hypotension, unspecified Status: Acute Assessment and Plan: BP doing better follow trend of hemodynamics Subjective Date/time seen: 04/16/19 09:38 Interval history: Patient is alert. is in the room. He is on peritoneal dialysis. The catheter did not work very well last night. He was seen at 915am. Ready to have hemo cath placed Review of Systems Cardiovascular: Cardiovascular: Reports no additional cardiovascular complaints Respiratory: Respiratory: Reports no additional respiratory complaints Gastrointestinal: Gastrointestinal: Reports no additional gastrointestinal complaints Genitourinary: Genitourinary: Reports no additional male genitourinary complaints Exam Narrative: Exam Narrative: Well developed well-nourished in no acute distress Lungs clear bilaterally Heart regular without rub Abdomen bowel sounds positive soft nontender Extremities no edema Skin no rash or subcu nodules Neuro he has asterixis Objective Data Vital Signs Vital Signs: Vital Signs - 24 hr 04/15/19 10:43 04/15/19 14:31 04/15/19 17:25 Temperature 36.5 C 36.5 C Pulse Rate 69 69 Respiratory Rate 16 16 Blood Pressure 112/42 L 112/42 L Pulse Oximetry 91 94 04/15/19 20:41 04/15/19 21:13 04/15/19 21:57 Temperature 37.1 C Pulse Rate 67 67 77 Respiratory Rate 18 18 Blood Pressure 94/33 L Pulse Oximetry 97 95 04/15/19 23:10 04/15/19 23:31 04/16/19 05:24 Temperature Pulse Rate 68 70 Respiratory Rate 22 H 21 H Blood Pressure Pulse Oximetry 92 94 93 04/16/19 06:00 04/16/19 08:18 04/16/19 08:23 Temperature 37.0 C Pulse Rate 64 88 Respiratory Rate 18 Blood Pressure 104/43 L Pulse Oximetry 96 88 L Intake/Output Intake/Output: Intake & Output 04/13/19 04/14/19 04/15/19 04/16/19 23:59 23:59 23:59 23:59 Intake Total 767 020 1800 400 Output Total 1575 1792 1639 0 Balance -595 -902 -539 400 Meds/Results Medications: Active Medications Generic Name Dose Route Start Last Admin Trade Name Freq PRN Reason Stop Dose Admin Hydrocodone Bitart/Acetaminophen 1 tab 04/13/19 16:21 [place] 5-325 Mg PO Q6H PRN Pain Aspirin 81 mg 04/15/19 09:00 04/15/19 08:31 Aspirin Chewable PO 81 mg DAILY RJ Administration Atorvastatin Calcium 80 mg 04/14/19 18:00 04/15/19 17:15 Lipitor PO 80 mg QPM RJ Administration Bisacodyl 10 mg 04/14/19 16:43 Dulcolax Suppository RECTAL DAILY PRN Constipation Clopidogrel Bisulfate 75 mg 04/15/19 09:00 04/15/19 08:32 Plavix PO 75 mg DAILY RJ Administration Dextrose 12.5 gm 04/13/19 05:03 Dextrose 50% Syringe IV PUSH PRN PRN Hypoglycemia Protocol Ferrous Sulfate 324 mg 04/15/19 09:00 04/15/19 08:32 Ferrous Sulfate PO 32
--- NOTE | 2019-04-16 10:01 | WPDANESEPPF ---
Anes - Initial Pre Proc Eval Procedure: Operation Date: 04/16/19 11:00 Proposed Procedures p Insertion Tunneled Duraflow Catheter Under Fluoroscopy - Ortega Lange MD Date/Time: 04/16/19 10:01 Surgeon: Philip Holly MD Pre Op Diagnosis: hypoglycemia, fluid overload, chronic renal Patient Data Age: 68 Gender: M Height: 1.91 m Weight: 134.6 kg Last Vital Signs Temp 37.0 C 04/16/19 06:00 Pulse 88 04/16/19 08:23 Resp 18 04/16/19 06:00 BP 104/43 L 04/16/19 06:00 Pulse Ox 88 L 04/16/19 08:18 Allergies Allergy/AdvReac Type Severity Reaction Status Date / Time No Known Allergies Allergy Verified 04/13/19 04:30 Home Medications Medication Instructions Recorded Confirmed Type ProSource 10 ea PO BID 03/01/19 04/13/19 History bisacodyl 10 mg ND DAILY PRN 03/01/19 04/13/19 History cetirizine [Zyrtec] 10 mg PO DAILY 03/01/19 04/13/19 History clopidogrel [Plavix] 75 mg PO DAILY 03/01/19 04/13/19 History insulin lispro [Humalog U-100 1 sliding scale dose SUBCUT TIDWM 03/01/19 04/13/19 History Insulin] ondansetron HCl [Zofran] 4 mg PO Q8H PRN 03/01/19 04/13/19 History polyethylene glycol 3350 [Miralax] 17 g PO DAILY PRN 03/01/19 04/13/19 History tamsulosin [Flomax] 0.4 mg PO DAILY 03/01/19 04/13/19 History Lactobacillus acidophilus 100 mg PO BID 03/22/19 04/13/19 History atorvastatin [Lipitor] 80 mg PO QPM 03/22/19 04/13/19 History cholestyramine (with sugar) 2 g PO BID 03/22/19 04/13/19 History [Questran] ferrous sulfate 325 mg PO DAILY 03/22/19 04/13/19 History gabapentin 200 mg PO TID 03/22/19 04/13/19 History gentamicin 1 applic TOPICAL HS 03/22/19 04/13/19 History hydrocodone-acetaminophen 1 tablet PO Q6H PRN 03/22/19 04/13/19 History levothyroxine 175 mcg PO DAILY 03/22/19 04/13/19 History loratadine 10 mg PO DAILY PRN 03/22/19 04/13/19 History metoprolol succinate [Toprol XL] 12.5 mg PO BID 03/22/19 04/13/19 History primidone 50 mg PO BID 03/22/19 04/13/19 History sevelamer HCl 1,600 mg PO TIDWM 03/22/19 04/13/19 History aspirin [Aspirin Childrens] 81 mg PO DAILY 04/09/19 04/13/19 History albuterol sulfate 0.63 mg INHALATION Q4H PRN 04/13/19 04/13/19 History fluticasone furoate [Flonase 2 spray INTRANASAL BID 04/13/19 04/13/19 History Sensimist] lanolin neerhbq-em-y.pet-ceres 1 applic TOPICAL DAILY 04/13/19 04/13/19 History [Eucerin] [id number]-uvgpspuc-lrwhc-w.pet 1 applic ND TID 04/13/19 04/13/19 History Laboratory Tests 04/15/19 04/15/19 04/15/19 12:01 18:29 20:18 WBC RBC Hgb Hct MCV MCH MCHC RDW Plt Count MPV Sodium Potassium Chloride Carbon Dioxide BUN Creatinine Estim Creat Clear Calc Estimated GFR Glucose POC Capillary Glucose 134 mg/dl H mg/dl 171 mg/dl H mg/dl 94 mg/dl mg/dl (65-105) (65-105) (65-105) Calcium Phosphorus Albumin 04/16/19 04/16/19 04/16/19 05:40 05:40 07:50 WBC 4.8 K/mm3 K/mm3 (4.5-10.0) RBC 3.64 M/mm3 L M/mm3 (4.6-6.20) Hgb 9.7 g/dL L g/dL (14.0-18.0) Hct 33.6 % L % (42.0-52.0) MCV 92.3 fl fl (80-100) MCH 26.6 pg pg (26-34) MCHC 28.9 g/dl L g/dl (32-36) RDW 16.1 % H % (11.5-14.5) Plt Count 130 k/mm3 L k/mm3 (150-375) MPV 9.3 fl fl (7.4-10.4) Sodium 130 mmol/L L mmol/L (137-145) Potassium 4.0 mmol/L mmol/L (3.4-5.0) Chloride 90 mmol/L L mmol/L (98-107) Carbon Dioxide 25 mmol/L mmol/L (22-30) BUN 60 mg/dL H mg/dL (9-20) Creatinine 11.60 mg/dL H mg/dL (0.7-1.3) Estim Creat Clear Calc 9 ml/min ml/min Estimated GFR 4 L (59 - ) Glucose 88 mg/dL mg/dL
[2019-04-16] MEDS: SODIUM CHLORIDE 0.9% IV 500 ML 30 ML IV CONT (10:15)
--- NOTE | 2019-04-16 10:33 | SUR.PREOP ---
0992-ARRIVED PER BED TO PREOP AREA, WITH PT.
[2019-04-16] MEDS: ceFAZolin 3 GM/D5W 100 ML 100 ML IVPB (11:40)
[2019-04-16] MEDS: LIDO 1%/EPINEPHRINE 1:100,000 20 ML VIAL INFILTRATE (12:00)
[2019-04-16] MEDS: HEPARIN SODIUM, PORCINE 10,000 UNITS/10 ML VIAL 1346000 UNITS IV PUSH (12:02)
[2019-04-16 13:37] LABS: Glucose Point of Care 110 (65-105)
--- NOTE | 2019-04-16 13:39 | ECG_ITS ---
Measurements Intervals [place] Rate: 70 P: 49 CO: 228 QRS: 62 QRSD: 113 T: 78 QT: 395 QTc: 429 Interpretive Statements SINUS RHYTHM WITH FIRST DEGREE AV BLOCK INTRAVENTRICULAR CONDUCTION DELAY LOW QRS VOLTAGE IN LIMB LEADS BORDERLINE ST-T WAVE ABNORMALITY- ANTEROLAT/LAT LEADS ABNORMAL ECG Electronically Signed On 04-16-2019 14:20:42 WIRE FENCE BUILDER by Andre Soni D.O.
--- NOTE | 2019-04-16 13:45 | SUR.PHASEI ---
1333 DR HUSSEIN AWARE OF CHEST PAIN. 1334 DR HUSSEIN AT BEDSIDE ASSESSING PT. EKG ORDERED.
--- NOTE | 2019-04-16 13:58 | SUR.PHASEI ---
1351 STAT EKG OBTAINED- DR HUSSEIN REVIEWING. 1355 PT STATES CHEST PAIN HAS LEFT. HE DENIES ANY CHEST PAIN.
[2019-04-16] MEDS: LEVALBUTEROL NEB 1.25 MG/3 ML 0.63 MG INHALATION (14:32)
--- NOTE | 2019-04-16 14:33 | SUR.PHASEI ---
1425 DR HUSSEIN AWARE OF O2 SATS 88-91% ON 4L NC. DR MENESES TO GIVEN PRN ORDER FOR LEVALBUTEROL NEB.
--- NOTE | 2019-04-16 14:59 | PC.NURSE ---
Returned from OR per bed.
--- NOTE | 2019-04-16 15:57 | PM.IMPN ---
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 Continue basal insulin. Initiate sliding scale insulin, Accu-Cheks, and hypoglycemic protocol. (2) Peritoneal dialysis catheter mechanical complication: Qualifiers: Encounter type: initial encounter Qualified Code(s): T85.691A - Other mechanical complication of intraperitoneal dialysis catheter, initial encounter Code(s): T85.691A - Other mechanical complication of intraperitoneal dialysis catheter, initial encounter Status: Acute Assessment and Plan: 04/16/19 15:57 Pt is suppodisly doing peritoneal dialysis for himself Aisha Carey is a 68 year old male stroke with left-sided weakness, type 2 diabetes mellitus, obstructive sleep apnea, hypertension, and end-stage renal disease on peritoneal dialysis who presented to the emergency department via EMS from [facility] for evaluation of confusion, hypoglycemia. Pt is on PD dialysis in [facility]. . Unsure if he was doing dialysis correctly or his PD machine was not working properly. Pt breathing is better and he less SOB. Patient seen by Dr. Calabrese recommending to stop the peritoneal dialysis and and switch over to hemodialysis patient. Patient was seen by general surgery had a PermCath placed today there was slight complication with bleeding and plan is to observe the patient overnight before starting dialysis tomorrow, patient denies a chest pain shortness of breath dizziness palpitation fever or chills, his is present in the room (3) DVT prophylaxis: Code(s): Z29.9 - Encounter for prophylactic measures, unspecified Status: Acute Assessment and Plan: SCDs (4) End stage renal disease: Code(s): N18.6 - End stage renal disease Status: Chronic Assessment and Plan: Awaiting hemodilaysis Pt is suppodisly doing peritoneal dialysis for himself Dr. Joy on the case AV fistula is in place in the left upper extremity, not yet mature. plan is above (5) Pulmonary edema: Code(s): J81.1 - Chronic pulmonary edema Status: Acute Assessment and Plan: Pt receiving PD dialysis (6) Acute respiratory failure: Qualifiers: Respiratory failure complication: hypoxia and hypercapnia Qualified Code(s): J96.01 - Acute respiratory failure with hypoxia; J96.02 - Acute respiratory failure with hypercapnia Code(s): J96.00 - Acute respiratory failure, unspecified whether with hypoxia or hypercapnia Status: Acute Assessment and Plan: Patient with acute on chronic respiratory failure, with hypercarbia. Pt is on bipap prn and oxygen restart oral meds Subjective Date/time seen: 04/16/19 15:57 Pt is suppodisly doing peritoneal dialysis for himself Aisha Carey is a 68 year old male stroke with left-sided weakness, type 2 diabetes mellitus, obstructive sleep apnea, hypertension, and end-stage renal disease on peritoneal dialysis who presented to the emergency department via EMS from [facility] for evaluation of confusion, hypoglycemia. Pt is on PD dialysis in [facility]. . Unsure if he was doing dialysis correctly or his PD machine was not working properly. Pt breathing is better and he less SOB. Patient seen by Dr. Calabrese recommending to stop the peritoneal dialysis and and switch over to hemodialysis patient. Patient was seen by general surgery had a PermCath placed today there was slight complication with bleeding and plan is to observe the patient overnight before starting dialysis tomorrow, patient denies a chest pain shortness of breath dizziness palpitation fever or chills, his is present in the room Review of Systems Review of Systems: All systems reviewed & are unremark
[2019-04-16 17:11] LABS: Glucose Point of Care 93 (65-105)
[2019-04-16 19:00] LABS: Hematocrit 36.1 % (42.0-52.0); Hemoglobin 10.5 g/dL (14.0-18.0)
[2019-04-16] MEDS: GENTAMICIN SULFATE 0.1% CR 15 GM TUBE 1 APPLIC TOPICAL (21:31)
[2019-04-16 21:47] LABS: Glucose Point of Care 86 (65-105)
[2019-04-17] VITALS (23 sets, daily range): BP systolic 98–143; BP diastolic 37–66; PULSE 65–75; RESP 18–20; TEMP 36.5–37.1; O2SAT 90–99
--- NOTE | 2019-04-17 04:46 | PC.NURSE ---
Patient removed Bi-Pap, RT notified machine off.
[2019-04-17] MEDS: LEVOTHYROXINE SODIUM 100 MCG TABLET PO (06:03)
[2019-04-17] MEDS: LEVOTHYROXINE SODIUM 75 MCG TABLET PO (06:03)
[2019-04-17 06:10] LABS: Hematocrit 33.4 % (42.0-52.0); Hemoglobin 9.8 g/dL (14.0-18.0); Mean Corpuscular HGB Conc 29.3 g/dl (32-36); Mean Corpuscular Hemoglobin 26.8 pg (26-34); Mean Corpuscular Volume 91.3 fl (80-100); Mean Platelet Volume 9.9 fl (7.4-10.4); Platelet Count Result 131 k/mm3 (150-375); Red Blood Count 3.66 M/mm3 (4.6-6.20); Red Cell Distribution Width 15.9 % (11.5-14.5); White Blood Count 5.3 K/mm3 (4.5-10.0)
[2019-04-17 06:29] LABS: Albumin Level 2.8 g/dL (3.5-5.1); Blood Urea Nitrogen 67 mg/dL (9-20); Carbon Dioxide 23 mmol/L (22-30); Chloride 94 mmol/L (98-107); Glucose 84 mg/dL (75-110); Phosphorus 9.5 mg/dL (2.5-4.5); Potassium 4.5 mmol/L (3.4-5.0); Sodium 131 mmol/L (137-145)
[2019-04-17 06:37] LABS: Estimated CRCL calculation 7 ml/min; Estimated Glomerular Filt Rate 4
--- NOTE | 2019-04-17 07:18 | PM.PNNEP ---
Progress Note: A&P Assessment and Plan (1) End stage renal disease: Code(s): N18.6 - End stage renal disease Status: Chronic Assessment and Plan: Hemo cath is in. He will get dialysis today. Arrangements are being made for him to go to [facility] under Dr. Graham (2) Hypoglycemia: Code(s): E16.2 - Hypoglycemia, unspecified Status: Acute Assessment and Plan: On Accu-Cheks (3) Fluid overload: Code(s): E87.70 - Fluid overload, unspecified Status: Acute Assessment and Plan: Improved overall. Will remove fluid as tolerated by his blood pressure. (4) Hyponatremia: Code(s): E87.1 - Hypo-osmolality and hyponatremia Status: Acute Assessment and Plan: Told to avoid excess water drinking (5) Anemia: Code(s): D64.9 - Anemia, unspecified Status: Chronic Assessment and Plan: related to ESRD Hemoglobin is stable this morning. On Epogen (6) Hypotension: Code(s): I95.9 - Hypotension, unspecified Status: Acute Assessment and Plan: BP doing better follow trend of hemodynamics Additional Plan Subjective Date/time seen: 04/17/19 07:18 Interval history: Patient is alert. He had the PermCath placed yesterday. Dr. Lange asked to wait till today to do his dialysis. Will get hemodialysis later today. Review of Systems Cardiovascular: Cardiovascular: Reports no additional cardiovascular complaints Respiratory: Respiratory: Reports no additional respiratory complaints Gastrointestinal: Gastrointestinal: Reports no additional gastrointestinal complaints Genitourinary: Genitourinary: Reports no additional male genitourinary complaints Exam Narrative: Exam Narrative: Well developed well-nourished in no acute distress Lungs clear to auscultation Heart regular without rub Abdomen bowel sounds positive soft nontender Extremities no edema or cyanosis Skin no rash or subcu nodules Neuro he has asterixis Objective Data Vital Signs Vital Signs: Vital Signs - 24 hr 04/16/19 08:18 04/16/19 08:23 04/16/19 09:53 Temperature 37.2 C Pulse Rate 88 66 Respiratory Rate 20 Blood Pressure 101/43 L Pulse Oximetry 88 L 97 04/16/19 13:15 04/16/19 13:30 04/16/19 13:45 Temperature 36.1 C L Pulse Rate 75 71 68 Respiratory Rate 17 14 14 Blood Pressure 77/32 L 86/39 L 100/47 L Pulse Oximetry 93 94 95 04/16/19 14:00 04/16/19 14:15 04/16/19 14:30 Temperature Pulse Rate 72 72 70 Respiratory Rate 14 16 14 Blood Pressure 99/44 L 102/39 L 112/44 L Pulse Oximetry 92 91 92 04/16/19 14:32 04/16/19 14:40 04/16/19 14:45 Temperature Pulse Rate 70 70 70 Respiratory Rate 14 17 14 Blood Pressure 105/37 L Pulse Oximetry 93 04/16/19 14:50 04/16/19 15:05 04/16/19 15:35 Temperature Pulse Rate 70 69 67 Respiratory Rate 16 16 18 Blood Pressure 113/40 L 113/41 L 115/51 L Pulse Oximetry 96 96 98 04/16/19 18:00 04/16/19 18:54 04/16/19 20:25 Temperature 36.7 C Pulse Rate 69 68 68 Respiratory Rate 18 18 Blood Pressure 98/36 L 118/60 Pulse Oximetry 96 100 100 04/16/19 20:27 04/16/19 21:30 04/16/19 22:00 Temperature 36.6 C Pulse Rate 68 68 69 Respiratory Rate 18 18 Blood Pressure 113/36 L Pulse Oximetry 91 98 04/16/19 23:32 04/17/19 02:00 04/17/19 03:14 Temperature 36.9 C Pulse Rate 69 65 71 Respiratory Rate 30 H 18 18 Blood Pressure 109/37 L Pulse Oximetry 94 99 94 04/17/19 06:00 Temperature 36.9 C Pulse Rate 71 Respiratory Rate 18 Blood Pressure 110/39 L Pulse Oximetry 91 Intake/Output Intake/Output: Intake & Output 04/14/19 04/15/19 04/16/19 04/17/19 23:59 23:59 23:59 23:59 Intake Total 890 1100 800 Output Total 1792 1639 0 Balance -902 -539 800 Meds/Results Medications: Active Medications Generic Name Dose Route Start Last Admin Trade Name Freq PRN Reason Stop Dose Admin Hydrocodone Bitart
[2019-04-17] MEDS: FLUTICASONE PROPIONATE 0.05% NA SPR 16 GM BTL (*BKC) 2 SPRAY NASAL ×2 (08:43→17:27)
[2019-04-17] MEDS: SEVELAMER CARBONATE 800 MG TABLET 1600 MG PO ×3 (08:43→17:24)
[2019-04-17] MEDS: EUCERIN CREAM 120 GM JAR 1 APPLIC TOPICAL (08:47)
[2019-04-17 09:35] LABS: Glucose Point of Care 84 (65-105)
--- NOTE | 2019-04-17 10:29 | PM.EVENT ---
Event Note Event Note Event Note: On HD paloma it well. removing fluid as paloma. so far bp is good. seen at 10:25am
--- NOTE | 2019-04-17 12:59 | PC.NURSE ---
Went to dialysis at 0930 and returned at 1300. AM medications given
[2019-04-17] MEDS: ACIDOPHILUS/BULGARICUS CHEWABLE TABLET 1 TABLET PO ×2 (13:08→17:28)
[2019-04-17] MEDS: SILVERGEL (ELTA) 45 ML 1 APPLIC TOPICAL (13:08)
[2019-04-17] MEDS: FERROUS SULFATE 324 MG TABLET PO (13:08)
[2019-04-17] MEDS: GABAPENTIN 100 MG CAPSULE 200 MG PO ×2 (13:10→17:24)
[2019-04-17] MEDS: METOPROLOL SUCCINATE EXT REL 12.5 MG TABCR PO ×2 (13:11→21:34)
[2019-04-17] MEDS: PRIMIDONE 50 MG TABLET PO ×2 (13:11→17:25)
[2019-04-17] MEDS: ASPIRIN 81 MG CHEWABLE TABLET PO (13:11)
[2019-04-17] MEDS: TAMSULOSIN HCL 0.4 MG CAPSULE PO (13:11)
[2019-04-17] MEDS: PHENYLEPH/SHARK OIL/MO/PETROL CREAM 26 GM 1 APPLIC RECTAL ×2 (13:12→17:30)
[2019-04-17 13:31] LABS: Glucose Point of Care 116 (65-105)
--- NOTE | 2019-04-17 13:37 | WPDANESPN ---
Anes - Prog Note Post-Op Date/Time: 04/17/19 13:37 Cardiovascular status: normal Respiratory status: normal Airway patency: baseline Mental status: baseline Post-Op hydration status: normal Vital Signs: Last Vital Signs Temp 36.5 C 04/17/19 12:50 Pulse 74 04/17/19 13:11 Resp 18 04/17/19 12:50 BP 140/66 04/17/19 12:50 Pulse Ox 91 04/17/19 06:00 I/O: Intake & Output 04/16/19 04/17/19 04/17/19 23:59 07:59 15:59 Intake Total 200 240 Output Total 3000 Balance 200 -2760 Laboratory Tests 04/17/19 05:33 04/17/19 05:33 04/16/19 04/16/19 04/16/19 13:35 17:00 18:47 WBC RBC Hgb Hct MCV MCH MCHC RDW Plt Count MPV Sodium Potassium Chloride Carbon Dioxide BUN Creatinine Estim Creat Clear Calc Estimated GFR Glucose POC Capillary Glucose 110 93 Calcium Phosphorus Albumin Hep B Core Total Ab Pending 04/16/19 04/16/19 04/17/19 18:47 21:34 05:33 WBC 5.3 RBC 3.66 L Hgb 10.5 L 9.8 L Hct 36.1 L 33.4 L MCV 91.3 MCH 26.8 MCHC 29.3 L RDW 15.9 H Plt Count 131 L MPV 9.9 Sodium Potassium Chloride Carbon Dioxide BUN Creatinine Estim Creat Clear Calc Estimated GFR Glucose POC Capillary Glucose 86 Calcium Phosphorus Albumin Hep B Core Total Ab 04/17/19 04/17/19 04/17/19 05:33 08:16 13:07 WBC RBC Hgb Hct MCV MCH MCHC RDW Plt Count MPV Sodium 131 L Potassium 4.5 Chloride 94 L Carbon Dioxide 23 BUN 67 H Creatinine 13.60 H Estim Creat Clear Calc 7 Estimated GFR 4 L Glucose 84 POC Capillary Glucose 84 116 H Calcium 8.0 L Phosphorus 9.5 H Albumin 2.8 L Hep B Core Total Ab Post-procedural complaints: none Patient Feedback: Patient satisfied with anesthetic care.
--- NOTE | 2019-04-17 14:24 | PCCPR ---
On 04/17/19, the student, [Le Marcum ], provided care and completed [facility] documentation on this patient. I have reviewed the student's documentation and agree with the findings.
--- NOTE | 2019-04-17 14:45 | PM.DS ---
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 Continue basal insulin. Initiate sliding scale insulin, Accu-Cheks, and hypoglycemic protocol. (2) Peritoneal dialysis catheter mechanical complication: Qualifiers: Encounter type: initial encounter Qualified Code(s): T85.691A - Other mechanical complication of intraperitoneal dialysis catheter, initial encounter Code(s): T85.691A - Other mechanical complication of intraperitoneal dialysis catheter, initial encounter Status: Resolved Assessment and Plan: 04/16/19 15:57 Pt is suppodisly doing peritoneal dialysis for himself Aisha Carey is a 68 year old male stroke with left-sided weakness, type 2 diabetes mellitus, obstructive sleep apnea, hypertension, and end-stage renal disease on peritoneal dialysis who presented to the emergency department via EMS from [facility] for evaluation of confusion, hypoglycemia. Pt is on PD dialysis in [facility] . Unsure if he was doing dialysis correctly or his PD machine was not working properly. Pt breathing is better and he less SOB. Patient seen by Dr. Calabrese recommending to stop the peritoneal dialysis and and switch over to hemodialysis patient. Patient was seen by general surgery had a PermCath placed today there was slight complication with bleeding and plan is to observe the patient overnight before starting dialysis tomorrow, patient denies a chest pain shortness of breath dizziness palpitation fever or chills, his is present in the room (3) DVT prophylaxis: Code(s): Z29.9 - Encounter for prophylactic measures, unspecified Status: Acute Assessment and Plan: SCDs (4) End stage renal disease: Code(s): N18.6 - End stage renal disease Status: Chronic Assessment and Plan: Awaiting hemodilaysis Pt is suppodisly doing peritoneal dialysis for himself Dr. Joy on the case AV fistula is in place in the left upper extremity, not yet mature. plan is above (5) Pulmonary edema: Code(s): J81.1 - Chronic pulmonary edema Status: Acute Assessment and Plan: Pt receiving PD dialysis (6) Acute respiratory failure: Qualifiers: Respiratory failure complication: hypoxia and hypercapnia Qualified Code(s): J96.01 - Acute respiratory failure with hypoxia; J96.02 - Acute respiratory failure with hypercapnia Code(s): J96.00 - Acute respiratory failure, unspecified whether with hypoxia or hypercapnia Status: Acute Assessment and Plan: Patient with acute on chronic respiratory failure, with hypercarbia. Pt is on bipap prn and oxygen restart oral meds DS: Summary Hospital Course Reason for hospitalization: Aisha aCrey JrCorey is a with multiple medical problems including history of stroke with left-sided weakness, type 2 diabetes mellitus, obstructive sleep apnea on CPAP, chronic respiratory failure with hypercarbia, hypertension, and end-stage renal disease who presented to the emergency department earlier this morning via EMS from [facility] for evaluation of altered mental status. He is well known to the hospitalist service and this will be his 5th admission to the hospital since March 02, 2019. I reviewed his electronic medical records extensively, and prior to February it looks like he received most of his care in [place], but comes to [place] as he is now [place]. Each admission is similar, with the patient presenting with shortness of breath and/or confusion with findings of volume overload. He has been on peritoneal dialysis for quite some time, and initially it was thought the with dialysis machine he had at [facility]
[2019-04-17] MEDS: ATORVASTATIN 40 MG TABLET 80 MG PO (17:25)
--- NOTE | 2019-04-17 18:18 | PC.NURSE ---
Report called to DARBY Price at [facility]
[2019-04-17 18:48] LABS: Glucose Point of Care 124 (65-105)
[2019-04-17] MEDS: GENTAMICIN SULFATE 0.1% CR 15 GM TUBE 1 APPLIC TOPICAL (21:36)
--- NOTE | 2019-04-17 22:25 | PC.NURSE ---
[facility] present to transport patient to [facility]. Vital signs given.
[2019-04-17 23:40] LABS: Glucose Point of Care 88 (65-105)
[2019-04-19 04:47] LABS: Hepatitis B Core Ab Total Nonreactive (Nonreactive)
--- NOTE | 2019-04-22 16:51 | PM.PROC ---
Procedure Note - Detailed Date of procedure: 04/19/19 Pre-op diagnosis: In stage renal disease, inadequate venous access in stage renal disease, inadequate venous access for dialysis Post-op diagnosis: same Procedure performed: placement right internal jugular tunneled Dura Flow central venous catheter under fluoroscopy. Description of procedure: the patient was taken to surgery and IV sedation was administered. The right neck and right upper chest were prepped and draped. The right carotid was palpated. Local anesthetic was infiltrated just lateral to the carotid artery. Puncture of the right internal jugular vein was carried out. This was dark blood under no inordinate pressure. A guidewire was able to be passed into the internal jugular vein. Under fluoroscopy, the wire was traversing into what appeared to be the right ventricle. It was a bit more medial than I was used to seeing it. There was ectopy. I tried a few times to demonstrate passage of the wire into the Inferior vena cava. It kept going into the right ventricle. I pulled back enough so there was no ectopy. I then used fluoroscopy and the Dura Flow catheter to plot the path of the catheter from the right upper chest to the internal jugular vein. The various counter incisions that we would tunnel the catheter through were marked on the skin. Local anesthetic was infiltrated into all of these incisions. A 36 cm Dura Flow catheter was then tunneled from the chest incision up through the counter incisions on the right neck. It eventually was brought out at the same incision the guidewire was emanating from. . I then used fluoroscopy and passed serial dilators over the guidewire. These went easily. I then passed the largest dilator with the sheath over the guidewire. This initially met some resistance but I backed it off and was able to pass it without difficulty into the right neck over the guidewire. However, as I removed the guidewire and the sheath, bright red arterial blood gushed out under high pressure. We applied pressure immediately so that bleeding was controlled quickly. I removed the introducer sheath and then held pressure for just over 10 minutes. Fortunately this arterial bleeding stopped. I then cannulated the right internal jugular vein with a 2nd puncture. A guidewire passed readily and under fluoroscopy, the guidewire was able to pass into the inferior vena cava without difficulty. It had a more normal course being more lateral as one would normally expect. the Dura Flow catheter was still in position having been tunneled earlier. New introducer set was brought into the field. Serial dilators were passed under fluoroscopy. The large dilator and sheath were then passed over the guidewire and into the superior vena cava under fluoroscopy. I removed the introducer and the guidewire. The Dura Flow catheter was then able to be passed down through the sheath. The sheath was then removed. I maneuvered the course of the Dura Flow catheter so there were no kinks. Its position was checked with C-arm fluoroscopy. It was located in the distal SVC at the right atrial junction. Its position looked very good and the course of the catheter showed no kinks and good position. I was able to aspirate blood easily and flush both of the ports easily as well. They were flushed with heparin as a final flush. Caps were placed on each port. I closed each of the incisions with subcuticular interrupted 3 0 Vicryl suture. I partially closed the incision for the exit of the Dura Flow catheter with another 3 0 Vicryl subcuticular suture. Three 0 nylon was used to suture the Dura Flow catheter to the skin. All looked good. There was no neck hematoma. A sterile transparent dressing was placed over the insertion site. The counter incisions were dressed with Exofin surgical adhesive. The patient was awakened and taken to recovery in good condition. Counts were correct x2. Postprocedure chest x
== END 2019-04-17 22:25 | DRG 640 ==
LOC: ANHED 03:59 → ANHIMU 05:28 → ANH3MEDSUR 04-14 19:05 → ANHIMU 04-19 13:14
PROVIDERS: Family Medicine; Internal Medicine Nephrology; Surgery; Admitting Provider Family Medicine; Emergency Provider Emergency Medicine; Visit Provider Family Medicine
PROC: 5A1D70Z Performance of Urinary Filtration, Intermittent, Less than 6 Hours Per Day (ICD-10-PCS; CPT 36908; principal; 2019-04-16 11:00)
DX: E87.79 Other fluid overload (principal); N18.6 End stage renal disease; J96.01 Acute respiratory failure with hypoxia; J96.02 Acute respiratory failure with hypercapnia; T85.691A Other mechanical complication of intraperitoneal dialysis catheter, initial encounter; I12.0 Hypertensive chronic kidney disease with stage 5 chronic kidney disease or end stage renal disease; J81.1 Chronic pulmonary edema; I69.354 Hemiplegia and hemiparesis following cerebral infarction affecting left non-dominant side; E87.1 Hypo-osmolality and hyponatremia; Z28.21 Immunization not carried out because of patient refusal; E11.22 Type 2 diabetes mellitus with diabetic chronic kidney disease; Z99.2 Dependence on renal dialysis; N40.0 Benign prostatic hyperplasia without lower urinary tract symptoms; G47.33 Obstructive sleep apnea (adult) (pediatric); K21.9 Gastro-esophageal reflux disease without esophagitis; E03.9 Hypothyroidism, unspecified; E11.51 Type 2 diabetes mellitus with diabetic peripheral angiopathy without gangrene; Z89.511 Acquired absence of right leg below knee; Z87.891 Personal history of nicotine dependence; D63.1 Anemia in chronic kidney disease; E11.649 Type 2 diabetes mellitus with hypoglycemia without coma; E66.9 Obesity, unspecified; Z68.37 Body mass index [BMI] 37.0-37.9, adult
CPT/HCPCS: 36415; 36600; 71045; 77001; 80048; 80053; 80069; 82805; 82948; 85014; 85018; 85025; 85027; 85610; 85730; 86704; 87081; 90945; 93005; 94002; 94003; 94640; 96361; 96374; 99291; A9270; C1750; G0257; G0378; J0690; J1644; J1815; J2250; J2704; J3010; J7030; J7040

== ENCOUNTER 2019-04-19 08:25 | Inpatient (IN) | payer MEDICARE, MEDICAID, SELFPAY ==
[2019-04-19] VITALS (12 sets, daily range): BP systolic 124–163; BP diastolic 40–60; PULSE 65–74; RESP 13–24; TEMP 36.3–36.5; O2SAT 93–99; BMI 35.5; BMI 34.5
--- NOTE | ~2019-04-19 | CT_ITS ---
EXAMINATION: CTA BRAIN/CAROTID DATE: 04/19/2019 08:58 INDICATION: Segmental status. Nonverbal. Confusion. TECHNIQUE: Computed tomographic angiography (CTA) of the head and neck was performed with 100 mL Omni paque-350 intravenous contrast. Multiplanar reconstructions and maximum intensity projection 3D-recon structions of the carotid arteries and of the intracranial arteries were created by the technologist on a separate workstation. Precontrast CT of the head was also obtained. Automated exposure control and iterative reconstruction technique were employed.The dose-length product was 1917.61 mGy-cm. COMPARISON: None. FINDINGS: Carotid arteries: Atherosclerotic calcifications at the aortic arch and along the great vessels including the bilateral common carotid arteries with <50% stenosis. There is moderate calcified atherosclerotic plaque and o cclusion at the origin of the left vertebral artery. Contrast again begins to be seen in the left yuliya tebral artery at the level of the transverse foramen of C3 which could represent either flow from eit her spinal collaterals or retrograde flow arising from the right vertebral artery. There is 15% steno sis of the right carotid bulb relative to normal distal artery lumen diameter (NASCET criteria). Ther e is 50% stenosis of the left carotid bulb relative to normal distal artery lumen diameter. Tunneled large bore dual lumen right internal jugular central venous catheter with distal tip extending to the inferior most image at the level of the jenny. Mild emphysema. Groundglass opacities in the bilater al upper lungs with small amount of smooth septal line thickening which could be related to atelectas is, mild pulmonary edema or combination. Small amount of consolidation along the major fissure in the posterior right upper lobe which could represent atelectasis or pneumonia. Cervical kyphosis with mo derate spondylosis. Head: Small focus of decreased attenuation along the [place] matter of a gyrus at the posterior right frontal lobe consistent with small infarct. Given conspicuity favor chronic. No acute intracranial hemorrhage , acute infarction or abnormal extra axial fluid collection. There is mild scattered white matter hyp oattenuation consistent with chronic small vessel ischemic disease. Ventricles are normal and symmetr ic. No mass/mass effect. Changes of right intraocular lens replacement. The orbits and mastoid air ce lls are normal. Mild mucosal thickening the bilateral ethmoid and maxillary sinuses. Changes of prior antral window procedures at the medial ku of the bilateral maxillary sinuses. Intracranial calcif ied cerebral atherosclerosis is noted. Intracranial arteries There is no hemodynamically significant stenosis in the vertebral, basilar and internal carotid arter ies. Vertebral arteries are codominant. There are no aneurysms identified. Both A1 and P1 segments a re patent. Cerebral arterial arborization appears symmetric. IMPRESSION: 1. Small infarct along a posterior gyrus of the right frontal lobe and favor chronic. No other acute intracranial process. 2. 15% stenosis of the right carotid bulb relative to normal distal artery lumen diameter (NASCET cri teria). 3. 50% stenosis of the left carotid bulb relative to normal distal artery lumen diameter. 4. 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 5. Mild emphysema with airspace disease in the upper lobes which could represent atelectasis, mild pu lmonary edema, pneumonia or some combination thereof. Reviewed, dictated and finalized at location A. ER/[facility] IMPRESSION: 1. Small
--- NOTE | 2019-04-19 08:28 | ED.AMS ---
HPI - Altered Mental Status General Chief Complaint: Altered Mental Status Stated Complaint: AMS Time Seen by Provider: 04/19/19 08:27 Source: patient and RN notes reviewed Mode of arrival: EMS Limitations: altered mental status History of Present Illness HPI narrative: Pt is a 68 y/o male with a Hx of CVA with residual lt sided weakness, who presents to the ED via EMS from [facility] with c/o altered mental status. According to the nurse, the pt's last known normal was sometime last night. She notes that the pt was checked on at 12:00 AM this morning, but was sleeping. The nurse states that when [facility] staff checked on the pt around 7:30 AM this morning, they found him drooling and minimally responsive, noting that he wasn't answering their questions. EMS states that they administered 2 mg of Narcan while in route to the ED, and notes that the pt has become slightly more alert following the medication. Pt states that he currently feels okay, and denies any CP, ABD pain, back pain, neck pain, or other symptoms. He does report weakness in his lt leg, which he notes is chronic. HPI limited due to pt's altered mental status. MD complaint: decreased responsiveness Onset (ago): unknown Associated symptoms: other (lt leg weakness) Treatments prior to arrival: other (Narcan 2 mg) Related Data Home Medications Medication Instructions Recorded Confirmed ProSource 10 ea PO BID 03/01/19 04/13/19 bisacodyl 10 mg TX DAILY PRN 03/01/19 04/13/19 cetirizine [Zyrtec] 10 mg PO DAILY 03/01/19 04/13/19 clopidogrel [Plavix] 75 mg PO DAILY 03/01/19 04/13/19 insulin lispro [Humalog U-100 1 sliding scale dose SUBCUT TIDWM 03/01/19 04/13/19 Insulin] ondansetron HCl [Zofran] 4 mg PO Q8H PRN 03/01/19 04/13/19 polyethylene glycol 3350 [Miralax] 17 g PO DAILY PRN 03/01/19 04/13/19 tamsulosin [Flomax] 0.4 mg PO DAILY 03/01/19 04/13/19 Lactobacillus acidophilus 100 mg PO BID 03/22/19 04/13/19 atorvastatin [Lipitor] 80 mg PO QPM 03/22/19 04/13/19 cholestyramine (with sugar) 2 g PO BID 03/22/19 04/13/19 [Questran] ferrous sulfate 325 mg PO DAILY 03/22/19 04/13/19 gabapentin 200 mg PO TID 03/22/19 04/13/19 gentamicin 1 applic TOPICAL HS 03/22/19 04/13/19 hydrocodone-acetaminophen 1 tablet PO Q6H PRN 03/22/19 04/13/19 levothyroxine 175 mcg PO DAILY 03/22/19 04/13/19 loratadine 10 mg PO DAILY PRN 03/22/19 04/13/19 metoprolol succinate [Toprol XL] 12.5 mg PO BID 03/22/19 04/13/19 primidone 50 mg PO BID 03/22/19 04/13/19 sevelamer HCl 1,600 mg PO TIDWM 03/22/19 04/13/19 aspirin [Aspirin Childrens] 81 mg PO DAILY 04/09/19 04/13/19 Eucerin 1 applic TOPICAL DAILY 04/13/19 04/13/19 Flonase Sensimist 2 spray INTRANASAL BID 04/13/19 04/13/19 albuterol sulfate 0.63 mg INHALATION Q4H PRN 04/13/19 04/13/19 [id number]-w.pet 1 applic TX TID 04/13/19 04/13/19 Allergies Allergy/AdvReac Type Severity Reaction Status Date / Time No Known Allergies Allergy Verified 04/19/19 08:59 Review of Systems Review of Systems: Narrative: ROS limited due to pt's altered mental status. Cardiovascular: Cardiovascular: Denies chest pain and Denies dyspnea Respiratory: Respiratory: Denies cough and Denies dyspnea Gastrointestinal: Gastrointestinal: Denies abdominal pain, Denies diarrhea, Denies nausea and Denies vomiting Musculoskeletal: Musculoskeletal: Denies back pain and Denies neck pain Neurologic: Reports weakness (lt leg weakness (chronic)) and Reports other (decreased responsiveness) [facility] Past Medical History Medical History Benign prostatic hyperplasia C. difficile colitis Chronic anemia CVA (cerebral vascular accident) With mild left-sided weakness. End-stage renal disease on peritoneal dialysis GERD (gastroesophageal reflux disease) Hyperlipidemia Hypertension Hypothyroidism Insulin dependent type 2 diabetes mellitus Hemoglobin A1c was 6.4% in February 2019. Obstructive sleep apnea on CPAP
--- NOTE | 2019-04-19 08:34 | ECG_ITS ---
Measurements Intervals [place] Rate: 73 P: 49 [place]: 256 QRS: 43 QRSD: 104 T: 78 QT: 373 QTc: 412 Interpretive Statements SINUS RHYTHM WITH FIRST DEGREE AV BLOCK LEAD V5 [address]-T WAVE ABNORMALITY- LATERAL LEADS ABNORMAL ECG Electronically Signed On 04-19-2019 8:50:54 SANE NURSE by Andre Soni D.O.
[2019-04-19 09:33] LABS: Basophils Absolute Auto 0.1 K/mm3 (0.0-0.1); Basophils Percent Auto 1.3 % (0.2-1.2); Eosinophils Absolute Auto 0.4 K/mm3 (0-0.3); Eosinophils Percent Auto 6.6 % (0-4.4); Hematocrit 35.9 % (42.0-52.0); Hemoglobin 10.1 g/dL (14.0-18.0); Immature Granulocyte Absolute 0.01 K/mm3 (0.00-0.031); Immature Granulocyte Percent A 0.2 % (0-0.5); Lymphocytes Absolute Auto 0.72 K/mm3 (0.9-3.2); Lymphocytes Percent Auto 13.5 % (18.3-44.2); Mean Corpuscular HGB Conc 28.1 g/dl (32-36); Mean Corpuscular Hemoglobin 26.4 pg (26-34); Mean Corpuscular Volume 93.7 fl (80-100); Mean Platelet Volume 8.8 fl (7.4-10.4); Monocytes Absolute Auto 0.7 K/mm3 (0.1-0.6); Monocytes Percent Auto 12.5 % (2.6-8.5); Neutrophils Absolute Auto 3.5 K/mm3 (1.3-6.7); Neutrophils Percent Auto 65.9 % (45.5-73.1); Platelet Count Result 123 k/mm3 (150-375); Red Blood Count 3.83 M/mm3 (4.6-6.20); Red Cell Distribution Width 16.2 % (11.5-14.5); White Blood Count 5.3 K/mm3 (4.5-10.0)
[2019-04-19 09:37] LABS: Prothrombin Time 13.3 Seconds (11.1-14.7)
[2019-04-19 09:38] LABS: Partial Thromboplastin Time 31.5 SECONDS (22.3-36.8)
[2019-04-19 09:39] LABS: Albumin Level 2.8 g/dL (3.5-5.1); Alkaline Phosphatase 91 U/L (38-126); Aspartate Amino Transferase 19 U/L (17-59); Bilirubin,Total 0.4 mg/dL (0.2-1.3); Blood Urea Nitrogen 24 mg/dL (9-20); Calcium 7.9 mg/dL (8.4-10.2); Carbon Dioxide 34 mmol/L (22-30); Chloride 95 mmol/L (98-107); Estimated CRCL calculation 16 ml/min; Estimated Glomerular Filt Rate 9; Glucose 87 mg/dL (75-110); Potassium 3.7 mmol/L (3.4-5.0); Sodium 133 mmol/L (137-145)
[2019-04-19 09:40] LABS: Hypochromasia 1+ (NORMAL); Platelet Estimate Decreased (Adequate)
[2019-04-19 09:52] LABS: Alanine Aminotransferase < 6 U/L (4-50)
[2019-04-19 12:19] LABS: Glucose Point of Care 77 (65-105)
--- NOTE | 2019-04-19 13:15 | ADMGEN ---
This patient, Aisha Carey Jr., was admitted to [facility] Surg Room 314-02. Patient/family oriented to hospital policies and general routines including ID bracelet, bed and alarms, visiting hours, pain management, procedures, bathroom and other care routines, personal items, smoking policy, room service/diet, and visiting hours. Valuables list has been completed. Information on how to activate the Rapid Response Team has been discussed. Patient/Family are encouraged to report perceived risks to care and to ask questions if they do not understand what they are told or what they should do.
[2019-04-19 14:40] LABS: Glucose Point of Care 81 (65-105)
[2019-04-19 14:42] LABS: Alveolar/Arterial O2 Gradient 36.7 mmHg; Base Excess ABG -1.9 mEq/l (+/-2.0); Carboxyhemoglobin 0.9 % THb (0-2.0); Fractional Inspired Oxygen 28 %; HCO3 ABG 27.4 mEq/l (22.0-26.0); Methemoglobin ABG 0.2 %THb (0-1.5); Oxygen Content ABG 14.8 %vol (16.0-22.0); Oxygen Saturation ABG 91.7 % (95.0-100.0); Oxyhemoglobin 92.5 % THb (90.0-100.0); PO2 FiO2 Ratio Arterial Blood 2.75 %; Reduced Hemoglobin 6.4 %THb (0-5.0); Total Hemoglobin 11.3 g/dL (12.0-18.0)
[2019-04-19 14:44] LABS: Device NASAL CANNULA; Modified Allen's Test Pass; PCO2 ABG 72.8 mmHg (35.0-45.0); Site Drawn RIGHT RADIAL; pH ABG 7.194 (7.350-7.450)
--- NOTE | 2019-04-19 15:00 | PM.IMHP ---
H&P: HPI History of Present Illness Chief complaint: Altered mental status. Narrative: Aisha Carey Jr. is a with multiple medical problems including history of stroke with left-sided weakness, type 2 diabetes mellitus, obstructive sleep apnea on CPAP, chronic respiratory failure with hypercarbia, hypertension, and end-stage renal disease who presented to the emergency department earlier this morning via EMS from [facility] for evaluation of altered mental status. He is well known to the hospitalist service and this will be his 5th admission to the hospital since March 02, 2019. I reviewed his electronic medical records extensively, and prior to February it looks like he received most of his care in [place], but comes to [place] as he is now [place]. Each admission is similar, with the patient presenting with shortness of breath and/or confusion with findings of volume overload. He has been on peritoneal dialysis for quite some time, and initially it was thought the with dialysis machine he had at [place] was not functioning appropriately. He did receive temporary hemodialysis until he received a new peritoneal dialysis machine. Unfortunately, he continues to be readmitted and with his most recent admission a tunneled dialysis catheter was placed and he is now receiving hemodialysis on Tuesdays, , and Saturdays. He also has a left upper extremity fistula that is still maturing. In any event, he was last seen in his usual state of health at midnight, and when staff went to wake him at 07:30 he was minimally responsive and was reportedly drooling and unable to answer questions. EMS administered 2 milligrams of Narcan in route to the emergency department, with perhaps a mild improvement. At the time my evaluation, he does not recall what happened this morning, but thinks he may remember the fire department coming to take him to the hospital, but he cannot say for sure. He does fall asleep frequently throughout the interview and has to be wakened. He is slow to answer, but is alert and oriented x4. Blood gas today is consistent with those done on prior admissions, with respiratory acidosis and hypercarbia. He states compliance with a CPAP at nighttime, but he is typically on BiPAP 22/8 during hospitalizations given persistent respiratory acidosis and hypercarbia. Despite BiPAP, however, he continues to have markedly elevated pCO2 levels. Currently, he has no complaints. He denies fever, chills, and sweats. No headache or neck ache. No cold or flu symptoms. He denies chest pain, orthopnea, pleuritic pain, and PND. He has chronic lower extremity edema, which he thinks is a bit better than what it typically is. No nausea, vomiting, or diarrhea. He has not had any recent falls or head trauma. He no longer urinates. Review of Systems Review of Systems: Narrative: Twelve systems were reviewed with pertinent positives and negatives as per HPI. Except as documented, all other systems were reviewed and are negative. [facility] Past Medical History Medical History (Updated 04/19/19 @ 17:12 by Desi Duke PA-C) Benign prostatic hyperplasia C. difficile colitis Chronic anemia CVA (cerebral vascular accident) With mild left-sided weakness. End-stage renal disease on hemodialysis Had previously been on peritoneal dialysis, but now has a tunneled catheter with a maturing left upper extremity fistula. Dialysis days are Monday, , and Monday. GERD (gastroesophageal reflux disease) Hyperlipidemia Hypertension Hypothyroidism Insulin dependent type 2 diabetes mellitus Hemoglobin A1c was 6.4% in February 2019. Obstructive sleep apnea on CPAP Peripheral vascular disease Surgical History Surgical History Hx of right BKA Family History Family History Father History of blood clots Acute myocardial infa
[2019-04-19] MEDS: PHENYLEPH/SHARK OIL/MO/PETROL CREAM 26 GM 1 APPLIC RECTAL (17:56)
[2019-04-19] MEDS: SEVELAMER CARBONATE 800 MG TABLET 1600 MG PO (17:57)
[2019-04-19] MEDS: ATORVASTATIN 40 MG TABLET 80 MG PO (17:58)
[2019-04-19 19:01] LABS: Glucose Point of Care 99 (65-105)
[2019-04-19 20:05] LABS: Alveolar/Arterial O2 Gradient 62.2 mmHg; Base Excess ABG 0.1 mEq/l (+/-2.0); Fractional Inspired Oxygen 30 %; HCO3 ABG 28.5 mEq/l (22.0-26.0); Oxygen Saturation ABG 93.5 % (95.0-100.0); PO2 ABG 77.7 mmHg (80.0-100.0); PO2 FiO2 Ratio Arterial Blood 2.59 %
[2019-04-19 20:08] LABS: pH ABG 7.274 (7.350-7.450)
[2019-04-19 20:09] LABS: Site Drawn RIGHT BRACHIAL
[2019-04-19 20:10] LABS: Device NON-INVASIVE VENT; Non-Invasive Expiratory Pressure 8 CMH2O; Non-Invasive Inspiratory Pressure 22 CMH2O; Non-Invasive Vent Rate 16 /MIN
[2019-04-19] MEDS: GABAPENTIN 100 MG CAPSULE 200 MG PO (21:06)
[2019-04-19] MEDS: ACIDOPHILUS/BULGARICUS CHEWABLE TABLET 1 TABLET PO (21:06)
[2019-04-19] MEDS: HEPARIN SODIUM 5,000 UNITS/ML VIAL 5000 UNITS SUB-Q (21:06)
[2019-04-19] MEDS: PRIMIDONE 50 MG TABLET PO (21:06)
[2019-04-19] MEDS: FLUTICASONE PROPIONATE 0.05% NA SPR 16 GM BTL (*BKC) 2 SPRAY NASAL (21:07)
[2019-04-20] VITALS (32 sets, daily range): BP systolic 130–179; BP diastolic 51–98; PULSE 18–85; RESP 16–21; TEMP 36.1–37; O2SAT 91–97
[2019-04-20 00:24] LABS: Glucose Point of Care 71 (65-105)
[2019-04-20] MEDS: LEVOTHYROXINE SODIUM 100 MCG TABLET PO (05:55)
[2019-04-20] MEDS: GABAPENTIN 100 MG CAPSULE 200 MG PO ×3 (05:55→21:09)
[2019-04-20] MEDS: LEVOTHYROXINE SODIUM 75 MCG TABLET PO (05:55)
[2019-04-20 06:27] LABS: Hematocrit 34.9 % (42.0-52.0); Hemoglobin 10.1 g/dL (14.0-18.0); Mean Corpuscular HGB Conc 28.9 g/dl (32-36); Mean Corpuscular Hemoglobin 26.8 pg (26-34); Mean Corpuscular Volume 92.6 fl (80-100); Mean Platelet Volume 8.9 fl (7.4-10.4); Platelet Count Result 149 k/mm3 (150-375); Red Blood Count 3.77 M/mm3 (4.6-6.20); Red Cell Distribution Width 15.9 % (11.5-14.5); White Blood Count 5.7 K/mm3 (4.5-10.0)
[2019-04-20 06:41] LABS: Blood Urea Nitrogen 28 mg/dL (9-20); Calcium 8.4 mg/dL (8.4-10.2); Carbon Dioxide 29 mmol/L (22-30); Chloride 94 mmol/L (98-107); Estimated CRCL calculation 12 ml/min; Estimated Glomerular Filt Rate 7; Glucose 112 mg/dL (75-110); Potassium 3.8 mmol/L (3.4-5.0); Sodium 130 mmol/L (137-145)
[2019-04-20] MEDS: CHOLESTYRAMINE (W/ SUGAR) 4 GM POWD.PACK 2 GM PO ×2 (06:59→21:04)
[2019-04-20 07:00] LABS: Glucose Point of Care 123 (65-105)
[2019-04-20 07:08] LABS: Hepatitis B Surface Antigen Negative (Negative)
[2019-04-20 07:14] LABS: HAV RESULT Negative (Negative); Hepatitis B Core IgM Result Negative (Negative)
[2019-04-20 07:25] LABS: Hepatitis C Virus Antibody Negative (Negative)
--- NOTE | 2019-04-20 07:41 | PM.CNNEP ---
Assessment and Plan Assessment and plan (1) End-stage renal disease on hemodialysis: Code(s): N18.6 - End stage renal disease; Z99.2 - Dependence on renal dialysis Status: Acute Assessment and Plan: Aisha has ESRD. He is now on hemodialysis. He has early in the course of his transition to regular dialysis. Will go ahead and give him a full treatment today. (2) Acute and chronic respiratory failure with hypercapnia: Code(s): J96.22 - Acute and chronic respiratory failure with hypercapnia Status: Acute Assessment and Plan: The patient has chronic respiratory acidosis. He does have a mild elevation of his CO2. Perhaps he needs higher value, however, to keep his pH from being so low. The patient has Pickwickian syndrome due to obesity and his former smoking history. Volume may be playing a role as well so we will try to take as much fluid off as we can. (3) Altered mental status: Qualifiers: Altered mental status type: unspecified Qualified Code(s): R41.82 - Altered mental status, unspecified Code(s): R41.82 - Altered mental status, unspecified Status: Acute Assessment and Plan: He has a very high pCO2 which could be contributing to this. He was uremic in the hospital but he has on hemodialysis for 3 treatments swelling think he has uremia anymore. Does not seem to have asterixis. However can't rule out some small contributory element of left over uremia to his altered mental status. (4) Hyponatremia: Code(s): E87.1 - Hypo-osmolality and hyponatremia Status: Acute Assessment and Plan: Sodium level is low. It always is. He drinks lots of fluid. (5) Fluid overload: Qualifiers: Hypervolemia type: other Qualified Code(s): E87.79 - Other fluid overload Code(s): E87.70 - Fluid overload, unspecified Status: Acute Assessment and Plan: His echocardiogram looks okay. I think this is just because he needs more fluid off with dialysis. Peritoneal dialysis just was not enough. Will remove fluid today. 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 We will remove fluid today. History of Present Illness Reason for Consult Consult date: 04/20/19 Chief Complaint Chief complaint: Altered mental status. History of Present Illness Narrative: Aisha is a very pleasant 68-year-old gentleman has multiple medical problems including end-stage minute disease on dialysis 3 times a week, peripheral vascular disease status post right [id number] amputation, hyperlipidemia, anemia, renal osteodystrophy, diabetes, sleep apnea on a CPAP machine, and hypertension. The patient was just released from the hospital as he was here for volume overload and uremia. He was switched from peritoneal dialysis to hemodialysis using hemo catheter and was doing well. He went to outpatient dialysis on and it went well. Yesterday the patient was noted by the nurses to be drooling and confused and poorly responsive. They called the ambulance who brought him over to [facility] Emergency Room.. And found to hav hypercarbia, although looking back on it, his pCO2 has almost always been above 60. He did not have any other electrolyte issues in his chest x-ray did show a little bit of fluid but overall volume status is better than it usually is. He was admitted to the hospital. Use the BiPAP overnight. He feels okay today. He has no chest p
[2019-04-20] MEDS: FERROUS SULFATE 324 MG TABLET PO (08:28)
[2019-04-20] MEDS: ASPIRIN 81 MG CHEWABLE TABLET PO (08:28)
[2019-04-20] MEDS: CLOPIDOGREL BISULFATE 75 MG TABLET PO (08:28)
[2019-04-20] MEDS: ACIDOPHILUS/BULGARICUS CHEWABLE TABLET 1 TABLET PO ×2 (08:29→21:08)
[2019-04-20] MEDS: FLUTICASONE PROPIONATE 0.05% NA SPR 16 GM BTL (*BKC) 2 SPRAY NASAL ×2 (08:29→21:08)
[2019-04-20] MEDS: SEVELAMER CARBONATE 800 MG TABLET 1600 MG PO ×3 (08:29→21:07)
[2019-04-20] MEDS: PHENYLEPH/SHARK OIL/MO/PETROL CREAM 26 GM 1 APPLIC RECTAL ×3 (08:30→21:05)
[2019-04-20] MEDS: HEPARIN SODIUM 5,000 UNITS/ML VIAL 5000 UNITS SUB-Q ×2 (08:30→21:09)
[2019-04-20] MEDS: PRIMIDONE 50 MG TABLET PO ×2 (08:30→21:10)
[2019-04-20] MEDS: TAMSULOSIN HCL 0.4 MG CAPSULE PO (08:32)
[2019-04-20] MEDS: METOPROLOL SUCCINATE EXT REL 25 MG TABCR PO (08:34)
[2019-04-20] MEDS: EUCERIN CREAM 120 GM JAR 1 APPLIC TOPICAL (08:36)
--- NOTE | 2019-04-20 08:53 | PM.CNPUL ---
Assessment and Plan Assessment and plan (1) Volume overload: Qualifiers: Hypervolemia type: unspecified Qualified Code(s): E87.70 - Fluid overload, unspecified Code(s): E87.70 - Fluid overload, unspecified Status: Acute Assessment and Plan: Improving. Continue Dialysis with fluid removal per Nephrology (2) Pulmonary edema: Code(s): J81.1 - Chronic pulmonary edema Status: Acute Assessment and Plan: see above (3) Acute and chronic respiratory failure with hypercapnia: Code(s): J96.22 - Acute and chronic respiratory failure with hypercapnia Status: Acute Assessment and Plan: likely due to pulmonary edema and volume overload (4) Obstructive sleep apnea on CPAP: Code(s): G47.33 - Obstructive sleep apnea (adult) (pediatric); Z99.89 - Dependence on other enabling machines and devices Status: Acute Assessment and Plan: Is not tolerating BIPAP settings of 22/8. The patient is on CPAP at home. Settings are not known. - will start CPAP 14 cm QHS and while napping. (5) COPD (chronic obstructive pulmonary disease): Code(s): J44.9 - Chronic obstructive pulmonary disease, unspecified Status: Acute Assessment and Plan: - 80 pack year smoking history, quit about 12 years ago - no signs of COPD exacerbation - will start him on Ipratropium 0.5 mg Q6h as he will have difficulty with handheld inhalers due to poor vision. History of Present Illness History of Present Illness Consult date: 04/20/19 Chief complaint: Altered mental status. Narrative: 68 y/o male with ESRD, COPD, CVA, CESAR presents with progressive dyspnea. He appeared to have volume overload which has improved with acute dialysis. He had right portacath in subclavian mikey and a recent LUE fistula that was just placed. He denies fever, sore throat, runny nose, body aches or diarrhea. He also denies chest tightness or wheezing. He did have a cough on admission but it is subsiding. CXR showed improving pulmonary edema but still present Review of Systems Review of Systems: All systems reviewed & are unremarkable except as noted in HPI and below PMFSH Past Medical History Medical History Benign prostatic hyperplasia C. difficile colitis Chronic anemia CVA (cerebral vascular accident) With mild left-sided weakness. End-stage renal disease on hemodialysis Had previously been on peritoneal dialysis, but now has a tunneled catheter with a maturing left upper extremity fistula. Dialysis days are Monday, , and Monday. GERD (gastroesophageal reflux disease) Hyperlipidemia Hypertension Hypothyroidism Insulin dependent type 2 diabetes mellitus Hemoglobin A1c was 6.4% in February 2019. Obstructive sleep apnea on CPAP Peripheral vascular disease Surgical History Surgical History Hx of right BKA Family History Family History Father History of blood clots Acute myocardial infarction Leukemia Mother History of blood clots Social History Social History Social History: The patient lives at [facility]. He designates his , Vira, as his surrogate decision maker and he wishes to be a full code. He smoked up to 3 packs of cigarettes per day for 40 years and reportedly quit in 1999. He denies alcohol and drug use. Smoking packs per day: 3 Smoking cigarettes per day: 60.0 Years smoked: 40 Smoking pack-years: 120.00 Smoking status: Former smoker Tobacco type: cigarettes Smoking end date: 03/22/19 Additional living arrangements comments: Spiritual care concerns: No Agree to blood products: Yes Meds Home Medications and Allergies Home Medications Medication Instructions Recorded Confirmed Type Pr
[2019-04-20 10:26] LABS: Hepatitis B Surface Anti Res Indeterminate
--- NOTE | 2019-04-20 10:26 | PM.IMPN ---
Progress Note: A&P Assessment and Plan (1) Altered mental status: Qualifiers: Altered mental status type: unspecified Qualified Code(s): R41.82 - Altered mental status, unspecified Code(s): R41.82 - Altered mental status, unspecified Status: Acute Assessment and Plan: Likely due to volume overload worsening respiratory failure Resolved (2) Acute and chronic respiratory failure with hypercapnia: Code(s): J96.22 - Acute and chronic respiratory failure with hypercapnia Status: Acute Assessment and Plan: Improved with fluid removal (3) End-stage renal disease on hemodialysis: Code(s): N18.6 - End stage renal disease; Z99.2 - Dependence on renal dialysis Status: Acute Assessment and Plan: per Dr. 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 Feels better today. Tolerated diet. Denied pain, sob, gi/gu c/o. No bleeding. Review of Systems Review of Systems: All systems reviewed & are unremarkable except as noted in HPI and below Exam Narrative: Exam Narrative: HEENT: EOMI, PERRL, pharyngeal mucosa pink and intact NECK: No JVD CHEST: Decr BS HEART: NL S1/S2, regular, no murmur ABDOMEN: BS+, soft, nontender, no mass, no bruits EXTREMITIES: Nonpitting edema left foot NEUROLOGIC: CN intact and symmetric to inspection. MUSCULOSKELETAL: Tone and strength symmetric. Right BKA PSYCH: Alert. Oriented to person, place, and time. Objective Data Vital Signs Vital Signs: Vital Signs - 24 hr 04/19/19 10:55 04/19/19 11:48 04/19/19 12:00 Temperature Pulse Rate 70 68 68 Respiratory Rate 15 13 13 Blood Pressure 124/49 L 125/40 L Pulse Oximetry 98 98 98 04/19/19 12:43 04/19/19 16:00 04/19/19 16:45 Temperature 97.4 F L Pulse Rate 65 68 Respiratory Rate 20 Blood Pressure 128/56 L Pulse Oximetry 97 93 04/19/19 18:10 04/19/19 19:45 04/19/19 20:00 Temperature Pulse Rate 65 71 65 Respiratory Rate 24 H 18 Blood Pressure Pulse Oximetry 98 93 04/19/19 22:00 04/20/19 00:00 04/20/19 01:26 Temperature 97.7 F Pulse Rate 68 70 70 Respiratory Rate 22 H 16 Blood Pressure 151/60 H Pulse Oximetry 99 92 04/20/19 04:00 04/20/19 05:02 04/20/19 06:00 Temperature 98.6 F Pulse Rate 71 85 81 Respiratory Rate 20 20 Blood Pressure 159/53 H Pulse Oximetry 91 97 04/20/19 08:34 Temperature Pulse Rate 64 Respiratory Rate Blood Pressure Pulse Oximetry Intake/Output Intake/Output: Intake & Output 04/17/19 04/18/19 04/19/19 04/20/19 23:59 23:59 23:59 23:59 Intake Total 120 450 Output Total 0 Balance 120 450 Meds/Results Medications: Active Medications Generic Name Dose Route Start Last Admin Trade Name Freq PRN Reason Stop Dose Admin Albuterol 0.63 mg 04/19/19 17:20 Albuterol Sulf Neb 2.5 Mg/3 Ml INHALATION Q4HRT PRN Shortness Of Breath Aspirin 81 mg 04/20/19 09:00 04/20/19 08:28 Aspirin Chewable PO 81 mg DAILY RJ Administration Atorvastatin Calcium 80 mg 04/19/19 18:00 04/19/19 17:58 Lipitor PO 80 mg QPM RJ Administration Bisacodyl 10 mg 04/19/19 17:20 Dulcolax Suppository
--- NOTE | 2019-04-20 11:30 | NEURO_ITS ---
TEST: ELECTROENCEPHALOGRAM DIAGNOSIS: ALTERED MENTAL STATUS PATIENT NUMBER: [id number] EEG NUMBER: [id number] RECORDING DATE: 04/20/19 CONDITION OF RECORDING: Awake and drowsy EEG DESCRIPTION: The whole record consists of diffused low voltage 15-21beta activity mixed with poorly organized medium voltage intermittent 5-7hz theta activity over the right hemispheric linkages. Hyperventilation and photic stimulation were not done. Bilateral sleep activity is seen again with the asymmetrical theta and delta activity over the right hemispheric linkages. Nonparoxysmal. Focal. Lateralizing. IMPRESSION: Abnormal record due to the absence of the normal background rhythms and due to the presence of the right hemispheric theta and delta activity. These abnormalities are suggestive of underlying organic or metabolic encephalopathy with focal involvement. There is no evidence of paroxysmal activity to consider the possibility of seizure. Clinical correlation is recommended. [facility]
[2019-04-20] MEDS: IPRATROPIUM BR 0.02% INH SOLN 0.5 MG/2.5 ML VIAL INHALATION ×2 (13:52→20:55)
[2019-04-20] MEDS: ALBUTEROL SULFATE NEB 2.5 MG/3 ML INH 0.63 MG INHALATION (13:53)
[2019-04-20 14:04] LABS: Glucose Point of Care 99 (65-105)
--- NOTE | 2019-04-20 18:47 | WPDNEURCNPN ---
Assessment and Plan Assessment and plan (1) COPD (chronic obstructive pulmonary disease): Code(s): J44.9 - Chronic obstructive pulmonary disease, unspecified Status: Acute (2) Acute and chronic respiratory failure with hypercapnia: Code(s): J96.22 - Acute and chronic respiratory failure with hypercapnia Status: Acute (3) End-stage renal disease on hemodialysis: Code(s): N18.6 - End stage renal disease; Z99.2 - Dependence on renal dialysis Status: Acute (4) Altered mental status: Qualifiers: Altered mental status type: unspecified Qualified Code(s): R41.82 - Altered mental status, unspecified Code(s): R41.82 - Altered mental status, unspecified Status: Acute (5) Hypotension: Code(s): I95.9 - Hypotension, unspecified Status: Acute (6) Hypoglycemia: Code(s): E16.2 - Hypoglycemia, unspecified Status: Acute (7) Fluid overload: Qualifiers: Hypervolemia type: other Qualified Code(s): E87.79 - Other fluid overload Code(s): E87.70 - Fluid overload, unspecified Status: Acute (8) Chronic renal failure: Code(s): N18.9 - Chronic kidney disease, unspecified Status: Acute (9) Insulin dependent type 2 diabetes mellitus: Code(s): E11.9 - Type 2 diabetes mellitus without complications; Z79.4 - custodial (current) use of insulin Status: Acute (10) Hyponatremia: Code(s): E87.1 - Hypo-osmolality and hyponatremia Status: Acute (11) HTN, goal to be determined: Code(s): I10 - Essential (primary) hypertension Status: Acute (12) End stage renal disease: Code(s): N18.6 - End stage renal disease Status: Chronic (13) Hypertension: Qualifiers: Hypertension type: essential hypertension Qualified Code(s): I10 - Essential (primary) hypertension Code(s): I10 - Essential (primary) hypertension Status: Chronic (14) Anemia: Code(s): D64.9 - Anemia, unspecified Status: Chronic (15) Acute respiratory failure: Qualifiers: Respiratory failure complication: hypoxia and hypercapnia Qualified Code(s): J96.01 - Acute respiratory failure with hypoxia; J96.02 - Acute respiratory failure with hypercapnia Code(s): J96.00 - Acute respiratory failure, unspecified whether with hypoxia or hypercapnia Status: Acute (16) CESAR on CPAP: Code(s): G47.33 - Obstructive sleep apnea (adult) (pediatric); Z99.89 - Dependence on other enabling machines and devices Status: Acute (17) Erythropoietin deficiency anemia: Code(s): D63.1 - Anemia in chronic kidney disease Status: Acute (18) End-stage renal disease on peritoneal dialysis: Code(s): N18.6 - End stage renal disease; Z99.2 - Dependence on renal dialysis Status: Acute (19) Encephalopathy: Code(s): G93.40 - Encephalopathy, unspecified Status: Acute Additional Plan continue present medical management dialysis etc I will be happy to follow Consult date: 04/20/19 Time Seen: 18:00 HPI: Aishamag Carey is a 68 year old male who is dialysis patient and I examined the patient in the dialysis room is definitely feeling better than when he came in because of the changes in the mental status the patient recently was given and access in the right upper chest for dialysis and is complaining of some neck discomfort otherwise no headache nausea vomiting and change in the mental status is improving [facility] and has had history of previous stroke which has left his left leg to be weak and also has underlying peripheral neuropathy and right BKA At the time of this examination as I best understand his mental status is getting better and he is quite comfortable and watching TV in the dialysis room Review of Systems Review of Systems: All systems reviewed & are unremarkable except as noted in HPI and below PMFSH Past Medical
[2019-04-20] MEDS: ATORVASTATIN 40 MG TABLET 80 MG PO (21:07)
[2019-04-20 21:23] LABS: Glucose Point of Care 129 (65-105)
[2019-04-21] VITALS (12 sets, daily range): BP systolic 146–148; BP diastolic 53–64; PULSE 66–80; RESP 16–20; TEMP 36.2–36.4; O2SAT 91–98
--- NOTE | 2019-04-21 01:58 | PC.NURSE ---
Daylight Savings Time For Daylight Savings Time Ending in the Fall - Clocks are moved back. For Daylight Savings Time Beginning in the Spring - Clocks are moved ahead. For [facility], the time of change occurs at 0200 hrs. Time is taken from the field observer. This entry on the patient's chart recognizes the change in time reflected during documentation. Example: 2 entries for vital signs may be charted for 0200 hrs.
[2019-04-21] MEDS: IPRATROPIUM BR 0.02% INH SOLN 0.5 MG/2.5 ML VIAL INHALATION ×3 (03:06→15:14)
[2019-04-21] MEDS: CHOLESTYRAMINE (W/ SUGAR) 4 GM POWD.PACK 2 GM PO ×2 (05:35→16:16)
[2019-04-21] MEDS: LEVOTHYROXINE SODIUM 100 MCG TABLET PO (05:37)
[2019-04-21] MEDS: LEVOTHYROXINE SODIUM 75 MCG TABLET PO (05:37)
[2019-04-21] MEDS: GABAPENTIN 100 MG CAPSULE 200 MG PO ×2 (05:37→12:46)
[2019-04-21] MEDS: SEVELAMER CARBONATE 800 MG TABLET 1600 MG PO ×3 (08:35→18:26)
[2019-04-21] MEDS: ACIDOPHILUS/BULGARICUS CHEWABLE TABLET 1 TABLET PO (08:36)
[2019-04-21] MEDS: METOPROLOL SUCCINATE EXT REL 25 MG TABCR PO (08:36)
[2019-04-21] MEDS: ASPIRIN 81 MG CHEWABLE TABLET PO (08:36)
[2019-04-21] MEDS: CLOPIDOGREL BISULFATE 75 MG TABLET PO (08:36)
[2019-04-21] MEDS: FLUTICASONE PROPIONATE 0.05% NA SPR 16 GM BTL (*BKC) 2 SPRAY NASAL (08:36)
[2019-04-21] MEDS: HEPARIN SODIUM 5,000 UNITS/ML VIAL 5000 UNITS SUB-Q (08:36)
[2019-04-21] MEDS: PRIMIDONE 50 MG TABLET PO (08:37)
[2019-04-21] MEDS: TAMSULOSIN HCL 0.4 MG CAPSULE PO (08:37)
[2019-04-21] MEDS: PHENYLEPH/SHARK OIL/MO/PETROL CREAM 26 GM 1 APPLIC RECTAL (08:37)
[2019-04-21] MEDS: EUCERIN CREAM 120 GM JAR 1 APPLIC TOPICAL (08:42)
[2019-04-21 08:57] LABS: Glucose Point of Care 94 (65-105)
--- NOTE | 2019-04-21 09:18 | PM.PNNEP ---
Progress Note: A&P Assessment and Plan (1) End-stage renal disease on hemodialysis: Code(s): N18.6 - End stage renal disease; Z99.2 - Dependence on renal dialysis Status: Acute Assessment and Plan: Aisha has ESRD. He had his dialysis treatment yesterday. (2) Acute and chronic respiratory failure with hypercapnia: Code(s): J96.22 - Acute and chronic respiratory failure with hypercapnia Status: Acute Assessment and Plan: The patient has chronic respiratory acidosis. He does have a mild elevation of his CO2. Perhaps he needs higher value, however, to keep his pH from being so low. The patient has Pickwickian syndrome due to obesity and his former smoking history. In case volume is an element, 4L were taken off yesterday. (3) Altered mental status: Qualifiers: Altered mental status type: unspecified Qualified Code(s): R41.82 - Altered mental status, unspecified Code(s): R41.82 - Altered mental status, unspecified Status: Acute Assessment and Plan: Etiology unclear. Neurology saw the patient. ? Due to volume overload, CO2 narcosis etc. (4) Hyponatremia: Code(s): E87.1 - Hypo-osmolality and hyponatremia Status: Acute Assessment and Plan: Sodium level is low. It always is. He drinks lots of fluid. (5) Fluid overload: Qualifiers: Hypervolemia type: other Qualified Code(s): E87.79 - Other fluid overload Code(s): E87.70 - Fluid overload, unspecified Status: Acute Assessment and Plan: His echocardiogram looks okay. I think this is just because he needs more fluid off with dialysis. 4L removed yesterday. (6) Insulin dependent type 2 diabetes mellitus: Code(s): E11.9 - Type 2 diabetes mellitus without complications; Z79.4 - group home (current) use of insulin Status: Acute Assessment and Plan: On Accu-Cheks and sliding-scale insulin (7) Hypertension: Qualifiers: Hypertension type: essential hypertension Qualified Code(s): I10 - Essential (primary) hypertension Code(s): I10 - Essential (primary) hypertension Status: Chronic Assessment and Plan: Blood pressure is better. Subjective Date/time seen: 04/21/19 09:18 Interval history: Patient is alert. No more spells. No chest pain or shortness of breath. He had dialysis yesterday. 4L removed. Review of Systems Cardiovascular: Cardiovascular: Reports no additional cardiovascular complaints Respiratory: Respiratory: Reports no additional respiratory complaints Gastrointestinal: Gastrointestinal: Reports no additional gastrointestinal complaints Genitourinary: Genitourinary: Reports no additional male genitourinary complaints Exam Narrative: Exam Narrative: Well developed well-nourished in no acute distress Lungs clear Heart regular without rub Abdomen bowel sounds positive soft nontender Extremities 1+ edema Skin no rash Objective Data Vital Signs Vital Signs: Vital Signs - 24 hr 04/20/19 08:34 04/20/19 11:11 04/20/19 12:00 Temperature Pulse Rate 64 71 78 Pulse Rate [Radial] Respiratory Rate 18 Blood Pressure Blood Pressure [Orthostatic Lying] Pulse Oximetry 95 04/20/19 14:00 04/20/19 14:03 04/20/19 16:00 Temperature 36.3 C L 36.1 C L Pulse Rate 69 18 L 70 Pulse Rate [Radial] 68 Respiratory Rate 21 H 18 18 Blood Pressure 137/51 L Blood Pressure [Orthostatic Lying] 150/70 H Pulse Oximetry 91 96 04/20/19 16:45 04/20/19 17:00 04/20/19 17:15 Temperature Pulse Rate 69 68 69 Pulse Rate [Radial] Respiratory Rate Blood Pressure 130/75 160/54 H 145/67 H Blood Pressure [Orthostatic Lying] Pulse Oximetry 04/20/19 17:30 04/20/19 17:45 04/20/19 18:00 Temperature Pulse Rate 67 68 67 Pulse Rate [Radial] Respiratory Rate Blood Pressure 166/70 H 153/70 H 162/78 H Blood Pressure [Orthostatic Lying]
[2019-04-21] MEDS: FERROUS SULFATE 324 MG TABLET PO (11:13)
[2019-04-21 13:16] LABS: Glucose Point of Care 169 (65-105)
--- NOTE | 2019-04-21 15:39 | PM.PNPUL ---
Progress Note: A&P Assessment and Plan (1) COPD (chronic obstructive pulmonary disease): Code(s): J44.9 - Chronic obstructive pulmonary disease, unspecified Status: Acute Assessment and Plan: I don't believe this patient is a chronic CO2 retatiner. He came in with acute hypercapnia. In fact if you correct for normal PH his CO2 falls within normal limits: - 80 pack year smoking history, quit about 12 years ago - no signs of COPD exacerbation - Continue Ipratropium 0.5 mg Q6h as he will have difficulty with handheld inhalers due to poor vision. (2) Fluid overload: Qualifiers: Hypervolemia type: other Qualified Code(s): E87.79 - Other fluid overload Code(s): E87.70 - Fluid overload, unspecified Status: Acute Assessment and Plan: Adequate volume removed. Oxygenation is stable (3) Acute hypercapnic respiratory failure: Code(s): J96.02 - Acute respiratory failure with hypercapnia Status: Acute Assessment and Plan: Resolved. Like due to prologonged volume overload and pulmonary edema. It is unlikely that he has chronic hyercapnia based on his previous blood gases. (4) CESAR on CPAP: Code(s): G47.33 - Obstructive sleep apnea (adult) (pediatric); Z99.89 - Dependence on other enabling machines and devices Status: Acute Assessment and Plan: Tolerated CPAP 14 cm last night with titration of FiO2 for sats of 90-93%. He should go back to his home CPAP settings upon discharge. Subjective Date/time seen: 04/21/19 15:39 Interval history: No complaints. Review of Systems Review of Systems: All systems reviewed & are unremarkable except as noted in HPI and below Exam Const: General: comfortable and no acute distress Neck: Neck: supple and no JVD Resp: Auscultation: crackles and diminished lung sounds Cardio: Rate: regular rate Rhythm: regular rhythm Heart sounds: no murmurs GI: GI Palp: Yes Soft to palpation Auscultation: normal bowel sounds Skin: General skin exam: normal color Extrem: General: edema and pedal edema Objective Data Vital Signs Vital Signs: Vital Signs - 24 hr 04/20/19 16:00 04/20/19 16:45 04/20/19 17:00 Temperature 36.1 C L Pulse Rate 70 69 68 Pulse Rate [Radial] 68 Respiratory Rate 18 Blood Pressure 130/75 160/54 H Blood Pressure [Orthostatic Lying] 150/70 H Pulse Oximetry 04/20/19 17:15 04/20/19 17:30 04/20/19 17:45 Temperature Pulse Rate 69 67 68 Pulse Rate [Radial] Respiratory Rate Blood Pressure 145/67 H 166/70 H 153/70 H Blood Pressure [Orthostatic Lying] Pulse Oximetry 04/20/19 18:00 04/20/19 18:15 04/20/19 18:30 Temperature Pulse Rate 67 67 67 Pulse Rate [Radial] Respiratory Rate Blood Pressure 162/78 H 148/75 H 144/65 H Blood Pressure [Orthostatic Lying] Pulse Oximetry 04/20/19 18:45 04/20/19 19:00 04/20/19 19:30 Temperature Pulse Rate 67 78 65 Pulse Rate [Radial] Respiratory Rate Blood Pressure 148/57 H 159/75 H 143/98 H Blood Pressure [Orthostatic Lying] Pulse Oximetry 04/20/19 19:45 04/20/19 20:10 04/20/19 20:28 Temperature 36.3 C L Pulse Rate 69 68 Pulse Rate [Radial] 69 Respiratory Rate 20 Blood Pressure 142/69 H 151/67 H Blood Pressure [Orthostatic Lying] 141/72 H Pulse Oximetry 04/20/19 20:45 04/20/19 20:55 04/20/19 20:58 Temperature Pulse Rate 70 76 Pulse Rate [Radial] Respiratory Rate 18 Blood Pressure Blood Pressure [Orthostatic Lying] Pulse Oximetry 96 04/20/19 21:04 04/20/19 21:55 04/20/19 22:00 Temperature 36.7 C Pulse Rate 70 83 76 Pulse Rate [Radial] Respiratory Rate 18 20 20 Blood Pressure 138/57 L Blood Pressure [Orthostatic Lying] Pulse Oximetry 93 95 04/21/19 00:00 04/21/19 03:06 04/21/19 03:08 Temperature Pulse Rate 76 72 70 Pulse Rate [Radial] Respiratory Rate 16 16 Blood Pressure Blood Pressure [Orthostatic Ly
--- NOTE | 2019-04-21 15:56 | WPDNEUROPN ---
Progress Note: A&P Assessment and Plan (1) Encephalopathy: Code(s): G93.40 - Encephalopathy, unspecified Status: Acute (2) COPD (chronic obstructive pulmonary disease): Code(s): J44.9 - Chronic obstructive pulmonary disease, unspecified Status: Acute (3) Acute and chronic respiratory failure with hypercapnia: Code(s): J96.22 - Acute and chronic respiratory failure with hypercapnia Status: Acute (4) End-stage renal disease on hemodialysis: Code(s): N18.6 - End stage renal disease; Z99.2 - Dependence on renal dialysis Status: Acute (5) Chronic renal failure: Code(s): N18.9 - Chronic kidney disease, unspecified Status: Acute (6) Insulin dependent type 2 diabetes mellitus: Code(s): E11.9 - Type 2 diabetes mellitus without complications; Z79.4 - prison (current) use of insulin Status: Acute (7) Fluid overload: Qualifiers: Hypervolemia type: other Qualified Code(s): E87.79 - Other fluid overload Code(s): E87.70 - Fluid overload, unspecified Status: Acute (8) End stage renal disease: Code(s): N18.6 - End stage renal disease Status: Chronic (9) Hypertension: Qualifiers: Hypertension type: essential hypertension Qualified Code(s): I10 - Essential (primary) hypertension Code(s): I10 - Essential (primary) hypertension Status: Chronic (10) Anemia: Code(s): D64.9 - Anemia, unspecified Status: Chronic (11) CESAR on CPAP: Code(s): G47.33 - Obstructive sleep apnea (adult) (pediatric); Z99.89 - Dependence on other enabling machines and devices Status: Acute (12) Erythropoietin deficiency anemia: Code(s): D63.1 - Anemia in chronic kidney disease Status: Acute (13) Acute respiratory failure with hypoxia and hypercapnia: Code(s): J96.01 - Acute respiratory failure with hypoxia; J96.02 - Acute respiratory failure with hypercapnia Status: Acute (14) End-stage renal disease on peritoneal dialysis: Code(s): N18.6 - End stage renal disease; Z99.2 - Dependence on renal dialysis Status: Acute (15) Chronic anemia: Code(s): D64.9 - Anemia, unspecified Status: Acute (16) Obstructive sleep apnea on CPAP: Code(s): G47.33 - Obstructive sleep apnea (adult) (pediatric); Z99.89 - Dependence on other enabling machines and devices Status: Inactive (17) Diabetes mellitus: Qualifiers: Diabetes mellitus type: type 2 Diabetes mellitus custodial insulin use: with student education specialist use Diabetes mellitus complication status: with circulatory complication Diabetes mellitus complication detail: with other circulatory complications Qualified Code(s): E11.59 - Type 2 diabetes mellitus with other circulatory complications; Z79.4 - prison (current) use of insulin Code(s): E11.9 - Type 2 diabetes mellitus without complications Status: Inactive (18) Status post below knee amputation of right lower extremity: Code(s): Z89.511 - Acquired absence of right leg below knee Status: Acute Additional Plan patient's encephalopathy has improved after the medical treatment of his multiple comorbidities and he is already on aspirin and Plavix he can be discharged at the discretion of the hospitalist no further neurological workup is necessary Review of Systems Review of Systems: All systems reviewed & are unremarkable except as noted in HPI and below Exam Const: General: comfortable and no acute distress HENMT: General nose exam: Normal nares present Mouth: Yes moist mucous membranes Eyes: General: appearance normal, both eyes and all related structures Neck: Neck: supple and no JVD Resp: Effort & Inspection: normal respiratory effort Auscultation: clear to auscultation bilaterally Cardio: Rate: regular rate Rhythm: regular rhythm GI: Auscultation: normal bowel sounds Skin: General skin exam: normal
--- NOTE | 2019-04-21 17:43 | PM.DS ---
DS: Diagnosis Admitting Diagnosis Admitting Diagnosis: Altered mental status, unspecified Discharge Diagnosis (1) Altered mental status: Qualifiers: Altered mental status type: unspecified Qualified Code(s): R41.82 - Altered mental status, unspecified Code(s): R41.82 - Altered mental status, unspecified Status: Acute Assessment and Plan: Likely due to volume overload worsening respiratory failure Resolved (2) Acute and chronic respiratory failure with hypercapnia: Code(s): J96.22 - Acute and chronic respiratory failure with hypercapnia Status: Acute Assessment and Plan: Improved with fluid removal (3) End-stage renal disease on hemodialysis: Code(s): N18.6 - End stage renal disease; Z99.2 - Dependence on renal dialysis Status: Acute Assessment and Plan: per Dr. Calabrese (4) Fluid overload: Qualifiers: Hypervolemia type: other Qualified Code(s): E87.79 - Other fluid overload Code(s): E87.70 - Fluid overload, unspecified Status: Acute Assessment and Plan: Due to inadequate dialysis fluid removal (5) Insulin dependent type 2 diabetes mellitus: Code(s): E11.9 - Type 2 diabetes mellitus without complications; Z79.4 - terminal computer operator (current) use of insulin Status: Acute Assessment and Plan: Monitor on current regimen (6) CESAR on CPAP: Code(s): G47.33 - Obstructive sleep apnea (adult) (pediatric); Z99.89 - Dependence on other enabling machines and devices Status: Acute Assessment and Plan: Continue home settings DS: Summary Hospital Course Reason for hospitalization: Mental status changes Hospital Course: Confusion secondary to hypercarbia secondary to volume overload caused his admission. He responded well to removal of 4 L with hemodialysis. Maintain good mental status and oxygen saturation afterwards. Discharge back to assisted in stable condition to follow-up for his usual Monday dialysis. Time Spent with Patient Time attestation: Total time spent providing and/or coordinating discharge services: Exam Narrative: Exam Narrative: HEENT: EOMI, PERRL, pharyngeal mucosa pink and intact NECK: No JVD CHEST: Decr BS HEART: NL S1/S2, regular, no murmur ABDOMEN: BS+, soft, nontender, no mass, no bruits EXTREMITIES: Nonpitting edema left foot NEUROLOGIC: CN intact and symmetric to inspection. MUSCULOSKELETAL: Tone and strength symmetric. Right BKA PSYCH: Alert. Oriented to person, place, and time. DS: Data Data Completed and Pending Labs on day of discharge: Labs from last 24 hours 04/21/19 04/21/19 04/20/19 12:22 07:56 21:19 POC Capillary Glucose 169 H 94 129 H Discharge Plan Discharge Consulting providers: Mata Parikh ; Steve Tracey ; Que Joy Discharging Clinician: Rainer Greer Patient Disposition: [facility] Activity: as tolerated Diet: diabetic and renal Discharge Instructions: Continue hemodialysis every , , Mon Patient Instructions: Antibiotic Form Stand Alone Forms: General Discharge Information Follow-up/Referrals: Que Joy MD [Physician] - UNKNOWN,DOCTOR [Primary Care Provider] - 1 Week (See primary MD at [facility] within one week) Discharge Medications: New ipratropium bromide 0.02 % Solution 0.5 mg inhalation TID Qty: 0 RF: 0 GlucaGen Diagnostic Kit 1 mg/mL Recon Soln 1 mg IM PRN PRN (Reason: Hypoglycemia) Qty: 0 RF: 0 Continued polyethylene glycol 3350 [Miralax] 17 gram Powder In Packet 17 g PO DAILY PRN (Reason: Constipation) RF: 0 clopidogrel [Plavix] 75 mg Tablet 75 mg PO DAILY RF: 0 Hold Instructions: Resume on 04/20/19. May resume Plavix on Monday per Dr. Lange tamsulosin [Flomax] 0.4 mg Capsule 0.4 mg PO DAILY RF: 0 bisacodyl 10 mg Suppository 10 mg [place] DAILY PRN (Reason: Constipation) RF: 0 insulin lispr
[2019-04-21] MEDS: ATORVASTATIN 40 MG TABLET 80 MG PO (18:26)
[2019-04-21 18:29] LABS: Glucose Point of Care 146 (65-105)
== END 2019-04-21 21:15 | DRG 189 ==
LOC: ANHED 10:49 → ANH3MEDSUR 11:14
PROVIDERS: Internal Medicine Nephrology; Physician Assistant; Admitting Provider Internal Medicine; Emergency Provider Emergency Medicine; Visit Provider Internal Medicine
DX: J96.22 Acute and chronic respiratory failure with hypercapnia (principal); N18.6 End stage renal disease; I69.354 Hemiplegia and hemiparesis following cerebral infarction affecting left non-dominant side; I12.0 Hypertensive chronic kidney disease with stage 5 chronic kidney disease or end stage renal disease; E66.2 Morbid (severe) obesity with alveolar hypoventilation; G93.49 Other encephalopathy; E87.79 Other fluid overload; E11.9 Type 2 diabetes mellitus without complications; Z99.2 Dependence on renal dialysis; K21.9 Gastro-esophageal reflux disease without esophagitis; E03.9 Hypothyroidism, unspecified; E78.5 Hyperlipidemia, unspecified; E11.22 Type 2 diabetes mellitus with diabetic chronic kidney disease; D63.1 Anemia in chronic kidney disease; R29.704 NIHSS score 4; Z68.35 Body mass index [BMI] 35.0-35.9, adult; Z89.511 Acquired absence of right leg below knee; E11.51 Type 2 diabetes mellitus with diabetic peripheral angiopathy without gangrene; Z87.891 Personal history of nicotine dependence; I95.9 Hypotension, unspecified; E11.649 Type 2 diabetes mellitus with hypoglycemia without coma
CPT/HCPCS: 36415; 36600; 70496; 70498; 80048; 80053; 80074; 82375; 82805; 83050; 85025; 85027; 85610; 85730; 86706; 93005; 94002; 94640; 95816; 99285; A9270; J1644; J7030; Q9967

== ENCOUNTER 2019-04-30 11:35 | Inpatient (IN) | payer MEDICARE, MEDICAID, SELFPAY ==
[2019-04-30] VITALS (29 sets, daily range): BP systolic 90–164; BP diastolic 39–80; PULSE 55–87; RESP 15–22; TEMP 36.4–37; O2SAT 94–100; BMI 37.5
--- NOTE | ~2019-04-30 | XR_ITS ---
EXAMINATION: XR chest 1V portable EXAM DATE: 04/30/2019 13:30 INDICATION: Shortness of breath and cough. TECHNIQUE: Portable AP frontal chest x-ray was obtained. Comparison is made to prior examination from 04/16/2019. FINDINGS: There is a double-lumen right-sided IJ dialysis catheter. There is cardiomegaly and pulmona ry vascular congestion. Patchy bilateral edema and/or pneumonia not significantly changed. There is a ortic arterial sclerosis. There are no osseous abnormalities identified. IMPRESSION: 1. Cardiomegaly, congestion. 2. Moderate bilateral edema and/or pneumonia. Reviewed, dictated and finalized at location A.
--- NOTE | 2019-04-30 12:11 | PC.NURSE ---
Called [facility] and spoke with pts nurse Herminio. Per pts nurse last night pt seemed to be confused . Today when pt was getting ready to leave for dialysis a nurse practitioner looked at pt and stated that he need to come to ED. Per pts nurse pt is normally talkative an with it . Pt does answer questions for this RN but sometimes gives wrong answer. When asked if he really knows that answer he states he is joking and then gives the right answer. Pt denies any pain at this time. Pt is notably tired. Pt normally goes to dialysis on Monday, and Monday.
--- NOTE | 2019-04-30 12:41 | ED.GENADULT ---
HPI - General Adult General Chief complaint: Unspecified Stated complaint: ALOC Time Seen by Provider: 04/30/19 12:10 Source: patient and RN notes reviewed Mode of arrival: EMS Limitations: other (poor historian) History of Present Illness HPI narrative: A 68 y/o male pt presents to the ED, via EMS from [facility], with c/o of AMS. Per RN notes, the nursing facility sent the pt to the ED because his baseline is A&O x3, but this morning he would not talk to staff and was not following commands. Pt denies any pain and notes a new onset of cough, and LLE swelling and redness. A complete HPI is limited d/t pt being a poor historian. MD complaint: AMS Onset (ago): hour(s) Associated symptoms: cough and other (LLE swelling and redness) Related Data Home Medications Medication Instructions Recorded Confirmed ProSource 10 ea PO BID 03/01/19 04/30/19 bisacodyl 10 mg [place] DAILY PRN 03/01/19 04/30/19 cetirizine [Zyrtec] 10 mg PO DAILY 03/01/19 04/30/19 clopidogrel [Plavix] 75 mg PO DAILY 03/01/19 04/30/19 insulin lispro [Humalog U-100 1 sliding scale dose SUBCUT TIDWM 03/01/19 04/30/19 Insulin] ondansetron HCl [Zofran] 4 mg PO Q8H PRN 03/01/19 04/30/19 polyethylene glycol 3350 [Miralax] 17 g PO DAILY PRN 03/01/19 04/30/19 tamsulosin [Flomax] 0.4 mg PO DAILY 03/01/19 04/30/19 Lactobacillus acidophilus 100 mg PO BID 03/22/19 04/30/19 atorvastatin [Lipitor] 80 mg PO QPM 03/22/19 04/30/19 cholestyramine (with sugar) 2 g PO BID 03/22/19 04/30/19 [Questran] ferrous sulfate 325 mg PO DAILY 03/22/19 04/30/19 gabapentin 200 mg PO TID 03/22/19 04/30/19 gentamicin 1 applic TOPICAL HS 03/22/19 04/30/19 levothyroxine 175 mcg PO DAILY 03/22/19 04/30/19 loratadine 10 mg PO DAILY PRN 03/22/19 04/30/19 primidone 50 mg PO BID 03/22/19 04/30/19 sevelamer HCl 1,600 mg PO TIDWM 03/22/19 04/30/19 aspirin [Aspirin Childrens] 81 mg PO DAILY 04/09/19 04/30/19 Eucerin 1 applic TOPICAL DAILY 04/13/19 04/30/19 Flonase Sensimist 2 spray INTRANASAL BID 04/13/19 04/30/19 albuterol sulfate 0.63 mg INHALATION Q4H PRN 04/13/19 04/30/19 Preparation H Maximum Strength 1 applic [place] Q12H 04/30/19 04/30/19 metoprolol succinate [Toprol XL] 12.5 mg PO Q12H 04/30/19 04/30/19 Allergies Allergy/AdvReac Type Severity Reaction Status Date / Time No Known Allergies Allergy Verified 04/30/19 12:16 Review of Systems Review of Systems: Narrative: A complete ROS is limited d/t pt being a poor historian. Respiratory: Respiratory: Reports cough Musculoskeletal: Musculoskeletal: Reports other (LLE redness and swelling) Neurologic: Reports other (AMS) [facility] Past Medical History Medical History Benign prostatic hyperplasia C. difficile colitis Chronic anemia CVA (cerebral vascular accident) With mild left-sided weakness. End-stage renal disease on hemodialysis Had previously been on peritoneal dialysis, but now has a tunneled catheter with a maturing left upper extremity fistula. Dialysis days are Monday, , and Monday. Tunneled catheter to right upper chest PD to left upper quadrant abdomen GERD (gastroesophageal reflux disease) Hyperlipidemia Hypertension Hypothyroidism Insulin dependent type 2 diabetes mellitus Hemoglobin A1c was 6.4% in February 2019. Obstructive sleep apnea on CPAP Peripheral vascular disease Surgical History Surgical History Hx of right BKA Status post below knee amputation of right lower extremity Family History Family History Father History of blood clots Acute myocardial infarction Leukemia Mother History of blood clots Social History Social History Social History: The patient lives at [facility]. He designates his , Vira, as his surrogate decision maker and he wishes to be a
--- NOTE | 2019-04-30 12:47 | ECG_ITS ---
Measurements Intervals [place] Rate: 60 P: AL: 0 QRS: 49 QRSD: 104 T: 83 QT: 406 QTc: 408 Interpretive Statements SINUS RHYTHM WITH FIRST DEGREE AV BLOCK BORDERLINE ST-T WAVE ABNORMALITY- LATERAL LEADS BASELINE ARTIFACT- I, II, III, AVR, AVL, AVF, V1-V4 ABNORMAL ECG Electronically Signed On 04-30-2019 14:43:58 CDT by Andre Soni D.O.
[2019-04-30] MEDS: SODIUM CHLORIDE 0.9% IV 1,000 ML 999 ML IV CONT (13:08)
[2019-04-30 13:14] LABS: Alveolar/Arterial O2 Gradient 12.8 mmHg; Base Excess ABG -4.2 mEq/l (+/-2.0); Fractional Inspired Oxygen 28 %; HCO3 ABG 27.5 mEq/l (22.0-26.0); Oxygen Content ABG 14.5 %vol (16.0-22.0); Oxygen Saturation ABG 87.3 % (95.0-100.0); PO2 ABG 74.3 mmHg (80.0-100.0); PO2 FiO2 Ratio Arterial Blood 2.65 %; Total Hemoglobin 11.3 g/dL (12.0-18.0)
[2019-04-30 13:15] LABS: PCO2 ABG 95.4 mmHg (35.0-45.0); Site Drawn RIGHT RADIAL; pH ABG 7.078 (7.350-7.450)
[2019-04-30 13:16] LABS: Device NASAL CANNULA; Modified Allen's Test Pass
--- NOTE | 2019-04-30 13:16 | PC.NURSE ---
Critical ABGs on pt. Dr. Ramon made aware
[2019-04-30 13:32] LABS: Basophils Absolute Auto 0.1 K/mm3 (0.0-0.1); Basophils Percent Auto 1.1 % (0.2-1.2); Eosinophils Absolute Auto 0.5 K/mm3 (0-0.3); Eosinophils Percent Auto 7.5 % (0-4.4); Hematocrit 37.7 % (42.0-52.0); Hemoglobin 10.2 g/dL (14.0-18.0); Immature Granulocyte Absolute 0.03 K/mm3 (0.00-0.031); Immature Granulocyte Percent A 0.5 % (0-0.5); Lymphocytes Absolute Auto 0.86 K/mm3 (0.9-3.2); Lymphocytes Percent Auto 13.8 % (18.3-44.2); Mean Corpuscular HGB Conc 27.1 g/dl (32-36); Mean Corpuscular Hemoglobin 26.5 pg (26-34); Mean Corpuscular Volume 97.9 fl (80-100); Monocytes Absolute Auto 0.6 K/mm3 (0.1-0.6); Monocytes Percent Auto 10.1 % (2.6-8.5); Neutrophils Absolute Auto 4.2 K/mm3 (1.3-6.7); Platelet Count Result 245 k/mm3 (150-375); Red Blood Count 3.85 M/mm3 (4.6-6.20); White Blood Count 6.3 K/mm3 (4.5-10.0)
[2019-04-30 13:42] LABS: Prothrombin Time 12.4 Seconds (11.1-14.7)
[2019-04-30 13:43] LABS: Lactic Acid Reflex 0.5 mmol/L (0.7-2.1); Partial Thromboplastin Time 34.6 SECONDS (22.3-36.8)
[2019-04-30 13:47] LABS: Platelet Estimate Adequate (Adequate)
[2019-04-30 13:48] LABS: Hypochromasia 1+ (NORMAL)
[2019-04-30 13:49] LABS: Ovalocytes 1+ (NORMAL); Poikilocytosis 1+ (NORMAL)
[2019-04-30 13:52] LABS: Add Urine Microscopic? YES; Appearance Urine Clear (Clear); Bacteria Urine Trace /hpf; Bilirubin Urine 1+ (Negative); Blood Urine 2+ (Negative); Color Urine Amber (Yellow); Glucose Urine UA Negative (Negative); Ketones Urine Negative (Negative); Leukocyte Esterase Ur Negative LEU/UL (Negative); Nitrate Urine Negative (Negative); Protein Urine 2+ mg/dL (Negative); Specific Grav Ur 1.025 (1.001-1.035); Squamous Epithelial Cell Urine Rare /hpf (Few); Urobilinogen Urine Negative mg/dL (<2.0)
[2019-04-30 13:53] LABS: Alanine Aminotransferase 7 U/L (4-50); Albumin Level 3.1 g/dL (3.5-5.1); Alkaline Phosphatase 84 U/L (38-126); Aspartate Amino Transferase 15 U/L (17-59); Bilirubin,Total 0.1 mg/dL (0.2-1.3); Blood Urea Nitrogen 41 mg/dL (9-20); CRP 0.8 mg/dL (<1.0); Calcium 7.9 mg/dL (8.4-10.2); Carbon Dioxide 31 mmol/L (22-30); Chloride 91 mmol/L (98-107); Estimated CRCL calculation 12 ml/min; Estimated Glomerular Filt Rate 7; Glucose 113 mg/dL (75-110); Sodium 128 mmol/L (137-145)
--- NOTE | 2019-04-30 14:26 | PC.NURSE ---
Pt called to check on status of pt.
--- NOTE | 2019-04-30 15:53 | PC.NURSE ---
PT AGITATED AND RIPPING CPAP OFF, ATTEMPTING TO REMOVE IV. SPOKE WITH MELIDA C[place]AND WHO GAVE VERBAL ORDER FOR 0.5MG ATIVAN IVP STAT.
[2019-04-30] MEDS: LORAZEPAM INJ 2 MG/ML VIAL (15:54)
--- NOTE | 2019-04-30 16:35 | PC.NURSE ---
This patient, Aisha Carey Jr., was admitted to IMU Room 201-01. Patient/family oriented to hospital policies and general routines including ID bracelet, bed and alarms, visiting hours, pain management, procedures, bathroom and other care routines, personal items, smoking policy, room service/diet, and visiting hours. Valuables list has been completed. Information on how to activate the Rapid Response Team has been discussed. Patient/Family are encouraged to report perceived risks to care and to ask questions if they do not understand what they are told or what they should do.
--- NOTE | 2019-04-30 17:52 | PM.IMHP ---
H&P: HPI History of Present Illness Chief complaint: Acute respiratory failure/left lower leg celluliti Narrative: Aisha Carey Jr. is a 68 year old male who has a history of having end-stage renal disease. The patient has dialysis on Saturdays. The patient has not been able to go to dialysis today. He has been more confused today. He was just discharged April 20 of this year. This is his 6th admission yet this year. He has also been coughing and was also noted that the patient has some redness to the left lower extremity. ER physician spoke with his Carmen who stated the patient is a DNR. The patient has hypercapnia with a CO2 of 95.4. PH of 7.078. PO2 74.3. I myself spoke to the and she stated that they had agreed on a DNR. Patient is on BiPAP 04/10. The patient is very lethargic and is alert awake with vigorous stimulation. He does answer to his name. Dr. Calabrese was notified and the patient is going to dialysis today. Patient was started on Zosyn and vancomycin for the cellulitis of the left lower extremity. Date of service 04/30/2019 Review of Systems Review of Systems: Narrative: The patient is not able to answer questions appropriate for me at this time. Information was obtained from old records he is currently on a BiPAP. I did talk to the and she stated that most of his medical history is correct except for he has a tunneled catheter the right upper chest for dialysis. All systems reviewed & are unremarkable except as noted in HPI and below ROS unobtainable: unobtainable due to mental status Constitutional: Constitutional: Reports as per HPI and Reports no additional constitutional complaints Eyes: Eyes: Reports as per HPI and Reports no additional eye complaints ENT: Reports system reviewed and no additional complaints, except as documented and Reports Normal hearing present Cardiovascular: Cardiovascular: Reports no additional cardiovascular complaints Respiratory: Respiratory: Reports no additional respiratory complaints and Reports no additional respiratory complaints Gastrointestinal: Gastrointestinal: Reports as per HPI and Reports no additional gastrointestinal complaints Musculoskeletal: Musculoskeletal: Reports no additional musculoskeletal complaints Integumentary/Breasts: Skin/Breast: Reports system reviewed and no additional complaints, except as docu and Reports as per HPI Neurologic: Reports system reviewed and no additional complaints, except as documented, Reports as per HPI and Reports Normal hearing present Psychiatric: Psychiatric: Reports no additional psychiatric complaints and Reports as per HPI Endocrine: Endocrine: Reports no additional endocrine complaints Hematologic/Lymphatic: Hematologic/Lymphatic: Reports no additional hematologic/lymphatic complaints Allergic/Immunologic: Allergic/Immunologic: Reports no additional allergic/immunologic complaints [facility] Past Medical History Medical History (Updated 04/30/19 @ 18:10 by Mabel Cartwright NP) Benign prostatic hyperplasia C. difficile colitis Chronic anemia CVA (cerebral vascular accident) With mild left-sided weakness. End-stage renal disease on hemodialysis Had previously been on peritoneal dialysis, but now has a tunneled catheter with a maturing left upper extremity fistula. Dialysis days are Monday, , and Monday. Tunneled catheter to right upper chest PD to left upper quadrant abdomen GERD (gastroesophageal reflux disease) Hyperlipidemia Hypertension Hypothyroidism Insulin dependent type 2 diabetes mellitus Hemoglobin A1c was 6.4% in February 2019. 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
[2019-04-30 18:05] LABS: Alveolar/Arterial O2 Gradient 54.2 mmHg; Base Excess ABG -4.1 mEq/l (+/-2.0); Fractional Inspired Oxygen 30 %; HCO3 ABG 26.1 mEq/l (22.0-26.0); Oxygen Content ABG 13.9 %vol (16.0-22.0); Oxyhemoglobin 89.6 % THb (90.0-100.0); PO2 FiO2 Ratio Arterial Blood 2.23 %
[2019-04-30 18:06] LABS: PCO2 ABG 78.9 mmHg (35.0-45.0); Site Drawn RIGHT BRACHIAL; pH ABG 7.138 (7.350-7.450)
[2019-04-30 18:07] LABS: Device NON-INVASIVE VENT; Non-Invasive Expiratory Pressure 8 CMH2O; Non-Invasive Inspiratory Pressure 22 CMH2O; Non-Invasive Vent Rate 16 /MIN
--- NOTE | 2019-04-30 20:00 | PC.NURSE ---
pt off floor at dialysis for 1999 assessment.
[2019-04-30] MEDS: ALBUMIN HUMAN 25% 12.5 GM/50ML 50 ML 50 GM (20:01)
--- NOTE | 2019-04-30 22:10 | PC.NURSE ---
pt returned from dialysis at 2210.
[2019-04-30 22:33] LABS: Glucose Point of Care 90 (65-105)
[2019-04-30] MEDS: PHENYLEPH/SHARK OIL/MO/PETROL CREAM 26 GM 1 APPLIC RECTAL (22:46)
[2019-04-30] MEDS: GENTAMICIN SULFATE 0.1% CR 15 GM TUBE 1 APPLIC TOPICAL (22:46)
[2019-05-01] VITALS (21 sets, daily range): BP systolic 112–146; BP diastolic 38–66; PULSE 63–87; RESP 16–22; TEMP 36.4–36.6; O2SAT 93–100
[2019-05-01 06:51] LABS: Albumin Level 2.9 g/dL (3.5-5.1); Alkaline Phosphatase 74 U/L (38-126); Aspartate Amino Transferase 13 U/L (17-59); Basophils Absolute Auto 0.1 K/mm3 (0.0-0.1); Basophils Percent Auto 1.8 % (0.2-1.2); Bilirubin,Total 0.2 mg/dL (0.2-1.3); Blood Urea Nitrogen 24 mg/dL (9-20); Calcium 7.7 mg/dL (8.4-10.2); Carbon Dioxide 32 mmol/L (22-30); Chloride 92 mmol/L (98-107); Eosinophils Absolute Auto 0.3 K/mm3 (0-0.3); Eosinophils Percent Auto 7.4 % (0-4.4); Estimated CRCL calculation 18 ml/min; Estimated Glomerular Filt Rate 11; Glucose 76 mg/dL (75-110); Hematocrit 34.3 % (42.0-52.0); Hemoglobin 9.4 g/dL (14.0-18.0); Immature Granulocyte Absolute 0.02 K/mm3 (0.00-0.031); Immature Granulocyte Percent A 0.4 % (0-0.5); Lymphocytes Absolute Auto 0.65 K/mm3 (0.9-3.2); Lymphocytes Percent Auto 14.5 % (18.3-44.2); Mean Corpuscular HGB Conc 27.4 g/dl (32-36); Mean Corpuscular Hemoglobin 26.9 pg (26-34); Mean Platelet Volume 9.2 fl (7.4-10.4); Monocytes Absolute Auto 0.5 K/mm3 (0.1-0.6); Monocytes Percent Auto 10.7 % (2.6-8.5); Neutrophils Absolute Auto 2.9 K/mm3 (1.3-6.7); Neutrophils Percent Auto 65.2 % (45.5-73.1); Platelet Count Result 198 k/mm3 (150-375); Potassium 4.7 mmol/L (3.4-5.0); Sodium 129 mmol/L (137-145); White Blood Count 4.5 K/mm3 (4.5-10.0)
[2019-05-01 06:52] LABS: Alanine Aminotransferase < 6 U/L (4-50)
[2019-05-01 07:14] LABS: Platelet Estimate Adequate (Adequate)
[2019-05-01 07:15] LABS: Ovalocytes 1+ (NORMAL); Tear Drop Cells 1+ (NORMAL)
[2019-05-01 07:16] LABS: Target Cells 1+ (NORMAL)
[2019-05-01] MEDS: GLUCOSE ORAL GEL 15 GM OF GLUCSE IN 37.5 GM TUBE PO (07:55)
[2019-05-01] MEDS: TAMSULOSIN HCL 0.4 MG CAPSULE PO (07:59)
[2019-05-01] MEDS: PRIMIDONE 50 MG TABLET PO ×2 (07:59→21:03)
[2019-05-01] MEDS: GABAPENTIN 100 MG CAPSULE 200 MG PO ×3 (08:00→16:39)
[2019-05-01] MEDS: FLUTICASONE PROPIONATE 0.05% NA SPR 16 GM BTL (*BKC) 2 SPRAY NASAL ×2 (08:00→21:03)
[2019-05-01] MEDS: LORATADINE 10 MG TABLET PO (08:00)
[2019-05-01] MEDS: FERROUS SULFATE 324 MG TABLET PO (08:01)
[2019-05-01] MEDS: ASPIRIN 81 MG CHEWABLE TABLET PO (08:01)
[2019-05-01] MEDS: ACIDOPHILUS/BULGARICUS CHEWABLE TABLET 1 TABLET PO ×2 (08:01→16:40)
[2019-05-01] MEDS: CLOPIDOGREL BISULFATE 75 MG TABLET PO (08:01)
[2019-05-01] MEDS: SEVELAMER CARBONATE 800 MG TABLET 1600 MG PO ×3 (08:02→16:39)
[2019-05-01 08:45] LABS: Glucose Point of Care 129 (65-105)
[2019-05-01 08:45] LABS: Glucose Point of Care 69 (65-105)
[2019-05-01] MEDS: ALBUTEROL SULFATE NEB 2.5 MG/0.5 ML INH 0.63 MG INHALATION (09:13)
[2019-05-01] MEDS: IPRATROPIUM BR 0.02% INH SOLN 0.5 MG/2.5 ML VIAL INHALATION ×3 (09:14→21:46)
[2019-05-01] MEDS: METOPROLOL SUCCINATE EXT REL 12.5 MG TABCR PO ×2 (09:41→18:31)
[2019-05-01] MEDS: EUCERIN CREAM 120 GM JAR 1 APPLIC TOPICAL (09:42)
[2019-05-01] MEDS: CHOLESTYRAMINE (W/ SUGAR) 4 GM POWD.PACK 2 GM PO ×2 (09:42→18:31)
--- NOTE | 2019-05-01 10:43 | PM.CNNEP ---
Assessment and Plan Assessment and plan (1) End-stage renal disease on hemodialysis: Code(s): N18.6 - End stage renal disease; Z99.2 - Dependence on renal dialysis Status: Acute Assessment and Plan: Aisha has end-stage renal disease. Was due for dialysis yesterday and received the treatment last night. Today the patient looks better. His volume status is still overloaded but not critically. He will get another treatment tomorrow. (2) Cellulitis of left leg: Code(s): L03.116 - Cellulitis of left lower limb Status: Acute Assessment and Plan: He has left lower extremity cellulitis. The patient is on antibiotics. Blood and urine cultures are pending. He is on Zosyn. (3) Encephalopathy: Code(s): G93.40 - Encephalopathy, unspecified Status: Acute Assessment and Plan: The patient was confused last night. Today he is alert and oriented. I discussed with him why he is here in what is going on. (4) COPD (chronic obstructive pulmonary disease): Code(s): J44.9 - Chronic obstructive pulmonary disease, unspecified Status: Acute Assessment and Plan: Patient has a history of smoking. He does not smoke any longer. 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 History of Present Illness Reason for Consult Consult date: 05/01/19 Chief Complaint Chief complaint: Acute respiratory failure/left lower leg celluliti History of Present Illness Narrative: Hyacinth is a very pleasant 68-year-old gentleman who has multiple medical problems including end-stage renal disease on dialysis 3 times a week, recurrent volume overload, chronic swelling, renal osteodystrophy, anemia of chronic kidney disease, history of C diff colitis, stroke, GERD, hyperlipidemia, hypertension, hypothyroidism, diabetes, sleep apnea on CPAP, peripheral vascular disease. The patient came in the hospital yesterday because of shortness of breath and pain in left lower extremity. He was seen in the emergency room and evaluated. He is found to be volume overloaded and also hyperkalemic. In addition is found to have a cellulitis in his left lower extremity. He was admitted and given antibiotics. He had dialysis last night where they took some fluid off. This morning he says he does not remember any of the events from yesterday. He does not even remember getting dialysis yesterday. I reoriented him and let him know that he had the cellulitis post the fluid overload. He says his left leg does not hurt at all right now although he realizes now that it is red. He is not short of breath. He is still swollen however. He is currently residing at [facility]. Review of Systems Constitutional: Constitutional: Reports no additional constitutional complaints Eyes: Eyes: Reports no additional eye complaints ENT: Reports system reviewed and no additional complaints, except as documented Cardiovascular: Cardiovascular: Reports no additional cardiovascular complaints Respiratory: Respiratory: Reports no additional respiratory complaints Gastrointestinal: Gastrointestinal: Reports no additional gastrointestinal complaints Genitourinary: Genitourinary: Reports no additional male genitourinary complaints Musculoskeletal: Musculoskeletal: Reports no additional musculoskeletal complaints Integumentary/Breasts: Skin/Breast: Reports system reviewed and no additional complaints, except as docu Neurologic: Reports system reviewed and
[2019-05-01 12:13] LABS: Glucose Point of Care 116 (65-105)
--- NOTE | 2019-05-01 12:16 | PM.IMPN ---
Progress Note: A&P Assessment and Plan (1) Metabolic encephalopathy: Code(s): G93.41 - Metabolic encephalopathy Status: Acute Assessment and Plan: The patient presented from his skilled nursing after use found to be unresponsive and confused. On arrival his ABG showed acidosis with a pH is 7.078, hypercapnia at 95.4, bicarb 27.5, and hypoxic oxygenation at 87%. He had missed dialysis on arrival and his creatinine was 8.1, BUN at 41, potassium at 6.0, serum bicarbonate 31. He found to have an underlying cellulitis infection to his left lower leg. His encephalopathy is most likely secondary to needing dialysis, acute hypercapnia, and underlying infection. The patient is alert and oriented x4 today and we are weaning him down on his oxygenation. Told the nurse to keep his oximetry 90-95% prevent any worsening hypercapnia issues. Will continue monitoring for any confusion or worsening symptoms. (2) Acute respiratory failure with hypercapnia: Code(s): J96.02 - Acute respiratory failure with hypercapnia Status: Acute Assessment and Plan: Patient was placed on BiPAP after admission and is now alert and oriented x4. We are weaning his oxygen as tolerated to keep his O2 between 90-95%. Will continue monitoring his respiratory status. (3) Cellulitis of left leg: Code(s): L03.116 - Cellulitis of left lower limb Status: Acute Assessment and Plan: The patient states his leg swelling and erythema is much worse than normal. Has some redness to the left lower extremity is warm to touch. Continue with vancomycin and Zosyn which will be renally dosed per pharmacy. Monitor blood cultures. (4) Hypertension: Qualifiers: Hypertension type: essential hypertension Qualified Code(s): I10 - Essential (primary) hypertension Code(s): I10 - Essential (primary) hypertension Status: Chronic Assessment and Plan: Blood pressure this morning was 128/66. I restarted his metoprolol succinate that he takes in will continue monitoring his blood pressure. 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 Continue monitoring Accu-Cheks ACHS. Hypoglycemic protocol in place. Sliding scale insulin in place. (6) End stage renal disease: Code(s): N18.6 - End stage renal disease Status: Chronic Assessment and Plan: Dialysis Monday Dr. Calabrese evaluated the patient and ordered dialysis after arrival and has another dialysis treatment set for tomorrow. Continue monitoring his renal function and electrolytes. Nephrology's input is greatly appreciated. (7) Anemia: Code(s): D64.9 - Anemia, unspecified Status: Chronic Assessment and Plan: Secondary to end-stage renal disease Hemoglobin on arrival was 10.2 today was 9.4. Still stable with his acute renal failure. Continue monitoring daily. No signs of acute bleeding. Transfuse as needed. (8) Hypothyroidism: Code(s): E03.9 - Hypothyroidism, unspecified Status: Chronic Assessment and Plan: TSH was normal. Contin
[2019-05-01 16:16] LABS: Glucose Point of Care 127 (65-105)
[2019-05-01] MEDS: ATORVASTATIN 40 MG TABLET 80 MG PO (16:39)
--- NOTE | 2019-05-01 19:14 | PC.NURSE ---
This patient, Aisha Carey Jr., was transferred to [facility] on 05/01/19 at 1850. Personal belongings sent with patient. Belongings list checked. Report given to Doreen HOOD. Appropriate documentation sent with patient.
[2019-05-01] MEDS: GENTAMICIN SULFATE 0.1% CR 15 GM TUBE 1 APPLIC TOPICAL (21:03)
[2019-05-01] MEDS: PHENYLEPH/SHARK OIL/MO/PETROL CREAM 26 GM 1 APPLIC RECTAL (21:04)
[2019-05-01 21:43] LABS: Glucose Point of Care 135 (65-105)
[2019-05-02] VITALS (36 sets, daily range): BP systolic 108–151; BP diastolic 40–89; PULSE 68–88; RESP 16–26; TEMP 36–36.8; O2SAT 91–100
[2019-05-02 06:20] LABS: Basophils Absolute Auto 0.1 K/mm3 (0.0-0.1); Basophils Percent Auto 1.2 % (0.2-1.2); Eosinophils Absolute Auto 0.4 K/mm3 (0-0.3); Eosinophils Percent Auto 7.8 % (0-4.4); Hematocrit 33.5 % (42.0-52.0); Hemoglobin 9.6 g/dL (14.0-18.0); Immature Granulocyte Absolute 0.02 K/mm3 (0.00-0.031); Immature Granulocyte Percent A 0.4 % (0-0.5); Lymphocytes Absolute Auto 0.59 K/mm3 (0.9-3.2); Lymphocytes Percent Auto 11.5 % (18.3-44.2); Mean Corpuscular HGB Conc 28.7 g/dl (32-36); Mean Corpuscular Hemoglobin 26.7 pg (26-34); Mean Corpuscular Volume 93.3 fl (80-100); Mean Platelet Volume 9.1 fl (7.4-10.4); Monocytes Absolute Auto 0.6 K/mm3 (0.1-0.6); Monocytes Percent Auto 12.3 % (2.6-8.5); Neutrophils Absolute Auto 3.4 K/mm3 (1.3-6.7); Neutrophils Percent Auto 66.8 % (45.5-73.1); Platelet Count Result 218 k/mm3 (150-375); Red Blood Count 3.59 M/mm3 (4.6-6.20); Red Cell Distribution Width 15.7 % (11.5-14.5); White Blood Count 5.1 K/mm3 (4.5-10.0)
[2019-05-02 06:34] LABS: Albumin Level 2.9 g/dL (3.5-5.1); Blood Urea Nitrogen 33 mg/dL (9-20); Calcium 7.6 mg/dL (8.4-10.2); Carbon Dioxide 28 mmol/L (22-30); Chloride 91 mmol/L (98-107); Estimated CRCL calculation 15 ml/min; Estimated Glomerular Filt Rate 8; Glucose 82 mg/dL (75-110); Phosphorus 5.4 mg/dL (2.5-4.5); Potassium 4.9 mmol/L (3.4-5.0); Sodium 127 mmol/L (137-145)
[2019-05-02] MEDS: LEVOTHYROXINE SODIUM 100 MCG TABLET PO (06:36)
[2019-05-02] MEDS: LEVOTHYROXINE SODIUM 75 MCG TABLET PO (06:36)
[2019-05-02 06:51] LABS: Anisocytosis 1+ (NORMAL); Hypochromasia 1+ (NORMAL); Platelet Estimate Adequate (Adequate)
[2019-05-02 07:30] LABS: Glucose Point of Care 109 (65-105)
--- NOTE | 2019-05-02 08:13 | PC.NURSE ---
Pt to dialysis.
[2019-05-02] MEDS: IPRATROPIUM BR 0.02% INH SOLN 0.5 MG/2.5 ML VIAL INHALATION ×3 (09:23→20:25)
--- NOTE | 2019-05-02 12:25 | PM.PNNEP ---
Progress Note: A&P Assessment and Plan (1) End-stage renal disease on hemodialysis: Code(s): N18.6 - End stage renal disease; Z99.2 - Dependence on renal dialysis Status: Acute Assessment and Plan: Aisha has end-stage renal disease. On dialysis now. (2) Cellulitis of left leg: Code(s): L03.116 - Cellulitis of left lower limb Status: Acute Assessment and Plan: He has left lower extremity cellulitis. The patient is on antibiotics. Blood and urine cultures are negative so far He is on Zosyn. (3) Encephalopathy: Code(s): G93.40 - Encephalopathy, unspecified Status: Acute Assessment and Plan: The patient was confused last night. Today he is alert and oriented. I discussed with him why he is here in what is going on. (4) COPD (chronic obstructive pulmonary disease): Code(s): J44.9 - Chronic obstructive pulmonary disease, unspecified Status: Acute Assessment and Plan: Patient has a history of smoking. He does not smoke any longer. 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 He feels better. He is eager for discharge. No shortness of breath. He is on dialysis and tolerating it well. We are removing around 4L of fluid. His blood pressure is doing well. He was seen at 11:45 a.m.. Exam Narrative: Exam Narrative: Well developed well-nourished in no acute distress Lungs clear Heart regular without rub Abdomen bowel sounds positive soft nontender Extremities 1 to2+ edema Skin no rash Objective Data Vital Signs Vital Signs: Vital Signs - 24 hr 05/01/19 14:00 05/01/19 14:41 05/01/19 14:55 Temperature Pulse Rate 73 72 71 Respiratory Rate 20 20 Blood Pressure Pulse Oximetry 05/01/19 16:00 05/01/19 18:31 05/01/19 20:00 Temperature 36.6 C Pulse Rate 72 75 72 Respiratory Rate 22 H Blood Pressure 146/54 H Pulse Oximetry 97 05/01/19 21:41 05/01/19 21:46 05/01/19 21:54 Temperature 36.4 C Pulse Rate 74 87 85 Respiratory Rate 20 20 20 Blood Pressure 134/47 L Pulse Oximetry 96 96 05/01/19 21:56 05/02/19 00:00 05/02/19 02:47 Temperature Pulse Rate 85 69 88 Respiratory Rate 20 26 H Blood Pressure Pulse Oximetry 97 97 05/02/19 04:00 05/02/19 05:51 05/02/19 08:00 Temperature 36.3 C L Pulse Rate 68 73 73 Respiratory Rate 20 Blood Pressure 143/64 H Pulse Oximetry 100 05/02/19 08:25 05/02/19 08:34 05/02/19 08:45 Temperature 36.4 C Pulse Rate 70 78 71 Respiratory Rate 20 Blood Pressure 109/53 L 122/60 127/89 Pulse Oximetry 05/02/19 09:00 05/02/19 09:15 05/02/19 09:23 Temperature Pulse Rate 79 75 79 Respiratory Rate 18 Blood Pressure 108/53 L 111/51 L Pulse Oximetry 91 05/02/19 09:30 05/02/19 09:33 05/02/19 09:45 Temperature Pulse Rate 72 82 72 Respiratory Rate 18 Blood Pressure 138/65 135/56 L Pulse Oximetry 05/02/19 10:00 05/02/19 10:15 05/02/19 10:30 Temperature Pulse Rate 72 72 73 Respiratory Rate Blood Pressure 125/59 L 151/70 H 145/68 H Pulse Oximetry 05/02/19 10:45 05/02/19 11:01 05/02/19 11:15 Temperature Pulse Rate 75 74 74 Respiratory Rate Blood Pressure 139/63 134/62 132/68 Pulse Oximetry 05/02/19 11:30 05/02/19 11:45 05/02/19 12:00 Temperature Pulse Rate 72 71 73 Respiratory Rate Blood Pressure 133/64 149/64 H 135/70 Pulse Oximetry
--- NOTE | 2019-05-02 12:26 | PCPTNOTE ---
Attempted PT treatment this AM. Pt was in dialysis per nursing.
--- NOTE | 2019-05-02 12:54 | PC.NURSE ---
Pt returned from dialysis.
[2019-05-02] MEDS: ACIDOPHILUS/BULGARICUS CHEWABLE TABLET 1 TABLET PO ×2 (13:00→17:34)
[2019-05-02] MEDS: PHENYLEPH/SHARK OIL/MO/PETROL CREAM 26 GM 1 APPLIC RECTAL ×2 (13:00→20:05)
[2019-05-02] MEDS: SEVELAMER CARBONATE 800 MG TABLET 1600 MG PO ×2 (13:00→17:34)
[2019-05-02] MEDS: EUCERIN CREAM 120 GM JAR 1 APPLIC TOPICAL (13:00)
[2019-05-02] MEDS: CLOPIDOGREL BISULFATE 75 MG TABLET PO (13:00)
[2019-05-02] MEDS: TAMSULOSIN HCL 0.4 MG CAPSULE PO (13:00)
[2019-05-02] MEDS: PRIMIDONE 50 MG TABLET PO ×2 (13:00→20:05)
[2019-05-02] MEDS: FERROUS SULFATE 324 MG TABLET PO (13:00)
[2019-05-02] MEDS: LORATADINE 10 MG TABLET PO (13:00)
[2019-05-02] MEDS: GABAPENTIN 100 MG CAPSULE 200 MG PO ×2 (13:00→17:34)
[2019-05-02] MEDS: CHOLESTYRAMINE (W/ SUGAR) 4 GM POWD.PACK 2 GM PO ×2 (13:01→17:33)
[2019-05-02] MEDS: ASPIRIN 81 MG CHEWABLE TABLET PO (13:01)
[2019-05-02] MEDS: FLUTICASONE PROPIONATE 0.05% NA SPR 16 GM BTL (*BKC) 2 SPRAY NASAL ×2 (13:01→20:05)
[2019-05-02] MEDS: METOPROLOL SUCCINATE EXT REL 12.5 MG TABCR PO (13:02)
[2019-05-02 13:18] LABS: Glucose Point of Care 126 (65-105)
--- NOTE | 2019-05-02 14:38 | PM.IMPN ---
Progress Note: A&P Assessment and Plan (1) Metabolic encephalopathy: Code(s): G93.41 - Metabolic encephalopathy Status: Acute Assessment and Plan: The patient presented from his alf after use found to be unresponsive and confused. On arrival his ABG showed acidosis with a pH is 7.078, hypercapnia at 95.4, bicarb 27.5, and hypoxic oxygenation at 87%. He had missed dialysis on arrival and his creatinine was 8.1, BUN at 41, potassium at 6.0, serum bicarbonate 31. He found to have an underlying cellulitis infection to his left lower leg. His encephalopathy is most likely secondary to needing dialysis, acute hypercapnia, and underlying infection. The patient is alert and oriented x4 today and we are weaning him down on his oxygenation. Will continue monitoring for any confusion or worsening symptoms. (2) Acute respiratory failure with hypercapnia: Code(s): J96.02 - Acute respiratory failure with hypercapnia Status: Acute Assessment and Plan: Patient was placed on BiPAP after admission and is now alert and oriented x4. We are weaning his oxygen as tolerated to keep his O2 between 90-95%. He is on 1L via NC with saturation 97%. Stable. Will continue monitoring his respiratory status. (3) Cellulitis of left leg: Code(s): L03.116 - Cellulitis of left lower limb Status: Acute Assessment and Plan: The patient states his leg swelling and erythema is much worse than normal. Today, his redness has improved slightly, but still warm to touch and erythematous. Continue with vancomycin and Zosyn which will be renally dosed per pharmacy. Monitor blood cultures. (4) Hypertension: Qualifiers: Hypertension type: essential hypertension Qualified Code(s): I10 - Essential (primary) hypertension Code(s): I10 - Essential (primary) hypertension Status: Chronic Assessment and Plan: Blood pressure this morning was 121/41. I restarted his metoprolol succinate that he takes in will continue monitoring his blood pressure. 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 Continue monitoring Accu-Cheks ACHS. Hypoglycemic protocol in place. Sliding scale insulin in place. (6) End stage renal disease: Code(s): N18.6 - End stage renal disease Status: Chronic Assessment and Plan: Dialysis Monday Dr. Calabrese evaluated the patient and ordered dialysis again to. Continue monitoring his renal function and electrolytes. Nephrology's input is greatly appreciated. (7) Anemia: Code(s): D64.9 - Anemia, unspecified Status: Chronic Assessment and Plan: Secondary to end-stage renal disease Hemoglobin on arrival was 9.2 today was 9.6. Still stable with his acute renal failure. Continue monitoring daily. No signs of acute bleeding. Transfuse as needed. (8) Hypothyroidism: Code(s): E03.9 - Hypothyroidism, unspecified Status: Chronic Assessment and Plan: TSH was normal. Continue with thyroid medicine levothyroxine.
[2019-05-02] MEDS: ATORVASTATIN 40 MG TABLET 80 MG PO (17:34)
[2019-05-02 17:39] LABS: Glucose Point of Care 124 (65-105)
[2019-05-02] MEDS: GENTAMICIN SULFATE 0.1% CR 15 GM TUBE 1 APPLIC TOPICAL (20:05)
[2019-05-02 20:10] LABS: Vancomycin Trough 12.1 ug/mL (10.0-20.0)
[2019-05-02 21:46] LABS: Glucose Point of Care 139 (65-105)
[2019-05-03] VITALS (20 sets, daily range): BP systolic 136–147; BP diastolic 53–69; PULSE 66–98; RESP 16–22; TEMP 36.2–36.7; O2SAT 71–100
[2019-05-03 05:59] LABS: Hematocrit 31.1 % (42.0-52.0); Hemoglobin 8.8 g/dL (14.0-18.0); Mean Corpuscular HGB Conc 28.3 g/dl (32-36); Mean Corpuscular Hemoglobin 26.5 pg (26-34); Mean Corpuscular Volume 93.7 fl (80-100); Mean Platelet Volume 8.9 fl (7.4-10.4); Platelet Count Result 196 k/mm3 (150-375); Red Blood Count 3.32 M/mm3 (4.6-6.20); Red Cell Distribution Width 15.9 % (11.5-14.5); White Blood Count 3.8 K/mm3 (4.5-10.0)
[2019-05-03] MEDS: LEVOTHYROXINE SODIUM 75 MCG TABLET PO (06:11)
[2019-05-03] MEDS: LEVOTHYROXINE SODIUM 100 MCG TABLET PO (06:11)
[2019-05-03] MEDS: METOPROLOL SUCCINATE EXT REL 12.5 MG TABCR PO ×2 (06:11→17:32)
[2019-05-03 06:20] LABS: Albumin Level 2.6 g/dL (3.5-5.1); Blood Urea Nitrogen 22 mg/dL (9-20); Calcium 7.5 mg/dL (8.4-10.2); Carbon Dioxide 29 mmol/L (22-30); Chloride 94 mmol/L (98-107); Estimated CRCL calculation 20 ml/min; Estimated Glomerular Filt Rate 12; Glucose 109 mg/dL (75-110); Phosphorus 3.9 mg/dL (2.5-4.5); Potassium 4.6 mmol/L (3.4-5.0); Sodium 128 mmol/L (137-145)
[2019-05-03 06:44] LABS: Glucose Point of Care 98 (65-105)
[2019-05-03] MEDS: IPRATROPIUM BR 0.02% INH SOLN 0.5 MG/2.5 ML VIAL INHALATION ×3 (08:48→19:44)
[2019-05-03] MEDS: FERROUS SULFATE 324 MG TABLET PO (09:10)
[2019-05-03] MEDS: ACIDOPHILUS/BULGARICUS CHEWABLE TABLET 1 TABLET PO ×2 (09:10→17:32)
[2019-05-03] MEDS: ASPIRIN 81 MG CHEWABLE TABLET PO (09:10)
[2019-05-03] MEDS: SEVELAMER CARBONATE 800 MG TABLET 1600 MG PO ×3 (09:10→17:32)
[2019-05-03] MEDS: FLUTICASONE PROPIONATE 0.05% NA SPR 16 GM BTL (*BKC) 2 SPRAY NASAL ×2 (09:10→21:23)
[2019-05-03] MEDS: CLOPIDOGREL BISULFATE 75 MG TABLET PO (09:10)
[2019-05-03] MEDS: PRIMIDONE 50 MG TABLET PO ×2 (09:11→21:23)
[2019-05-03] MEDS: EUCERIN CREAM 120 GM JAR 1 APPLIC TOPICAL (09:11)
[2019-05-03] MEDS: GABAPENTIN 100 MG CAPSULE 200 MG PO ×3 (09:11→17:32)
[2019-05-03] MEDS: LORATADINE 10 MG TABLET PO (09:11)
[2019-05-03] MEDS: CHOLESTYRAMINE (W/ SUGAR) 4 GM POWD.PACK 2 GM PO ×2 (09:12→17:32)
[2019-05-03] MEDS: TAMSULOSIN HCL 0.4 MG CAPSULE PO (09:12)
--- NOTE | 2019-05-03 10:31 | PM.PNNEP ---
Progress Note: A&P Assessment and Plan (1) End-stage renal disease on hemodialysis: Code(s): N18.6 - End stage renal disease; Z99.2 - Dependence on renal dialysis Status: Acute Assessment and Plan: Aisha has end-stage renal disease. HD tomorrow and TTS (2) Cellulitis of left leg: Code(s): L03.116 - Cellulitis of left lower limb Status: Acute Assessment and Plan: He has left lower extremity cellulitis. The patient is on antibiotics. the leg looks a little less red. Blood and urine cultures are negative so far He is on Zosyn. (3) Encephalopathy: Code(s): G93.40 - Encephalopathy, unspecified Status: Acute Assessment and Plan: The patient was confused last night. Today he is alert and oriented. I discussed with him why he is here in what is going on. (4) COPD (chronic obstructive pulmonary disease): Code(s): J44.9 - Chronic obstructive pulmonary disease, unspecified Status: Acute Assessment and Plan: Patient has a history of smoking. He does not smoke any longer. (5) Insulin dependent type 2 diabetes mellitus: Code(s): E11.9 - Type 2 diabetes mellitus without complications; Z79.4 - [employer] (current) use of insulin Status: Acute Assessment and Plan: He is on Accu-Cheks and sliding-scale insulin (6) Fluid overload: Qualifiers: Hypervolemia type: other Qualified Code(s): E87.79 - Other fluid overload Code(s): E87.70 - Fluid overload, unspecified Status: Acute Assessment and Plan: Removing fluid with dialysis Subjective Date/time seen: 05/03/19 10:31 Interval history: Patient is alert. He feels better. no leg pain. Exam Narrative: Exam Narrative: Well developed well-nourished in no acute distress Lungs clear to ausc Heart regular without rub Abdomen bowel sounds positive soft nontender Extremities 1 to2+ edema Skin no rash. erythema is better. Objective Data Vital Signs Vital Signs: Vital Signs - 24 hr 05/02/19 10:45 05/02/19 11:01 05/02/19 11:15 Temperature Pulse Rate 75 74 74 Respiratory Rate Blood Pressure 139/63 134/62 132/68 Pulse Oximetry 05/02/19 11:30 05/02/19 11:45 05/02/19 12:00 Temperature Pulse Rate 72 71 73 Respiratory Rate Blood Pressure 133/64 149/64 H 135/70 Pulse Oximetry 05/02/19 12:15 05/02/19 12:30 05/02/19 12:45 Temperature 36.3 C L Pulse Rate 73 73 73 Respiratory Rate 18 Blood Pressure 133/47 L 147/63 H 118/55 L Pulse Oximetry 05/02/19 13:02 05/02/19 14:17 05/02/19 15:05 Temperature 36.2 C L Pulse Rate 72 74 73 Respiratory Rate 18 16 Blood Pressure 121/41 L Pulse Oximetry 97 05/02/19 15:15 05/02/19 16:00 05/02/19 20:00 Temperature Pulse Rate 77 72 74 Respiratory Rate 16 Blood Pressure Pulse Oximetry 05/02/19 20:25 05/02/19 20:38 05/02/19 20:43 Temperature Pulse Rate 74 73 86 Respiratory Rate 16 18 24 H Blood Pressure Pulse Oximetry 92 97 05/02/19 21:46 05/03/19 00:00 05/03/19 03:15 Temperature 36.8 C Pulse Rate 70 68 83 Respiratory Rate 22 H 16 Blood Pressure 117/40 L Pulse Oximetry 100 95 05/03/19 04:00 05/03/19 06:11 05/03/19 06:23 Temperature 36.2 C L Pulse Rate 66 66 67 Respiratory Rate 22 H Blood Pressure 141/56 H Pulse Oximetry 100 Intake/Output Intake/Output: Intake & Output 04/30/19 05/01/19 05/02/19 05/03/19 23:59 23:59 23:59 23:59 Intake Total 1600 1120 1230 500 Output Total 3000 0 4600 0 Balance -1400 1120 -3370 500 Meds/Results Medications: Active Medications Generic Name Dose Route Start Last Admin Trade Name Freq PRN Reason Stop Dose Admin Acetaminophen 650 mg 04/30/19 15:05 Tylenol Tablet PO Q4H PRN Mild Pain (1-3) or Fever Albuterol 0.63 mg 04/30/19 18:12 05/01/19 09:13 Albuterol Sulf Neb 2.5mg/0.5ml INHALATION 0.63 mg Q4HRT PRN Administration Sh
--- NOTE | 2019-05-03 10:52 | PM.IMPN ---
Progress Note: A&P Assessment and Plan (1) Metabolic encephalopathy: Code(s): G93.41 - Metabolic encephalopathy Status: Acute Assessment and Plan: The patient presented from his detention after use found to be unresponsive and confused. On arrival his ABG showed acidosis with a pH is 7.078, hypercapnia at 95.4, bicarb 27.5, and hypoxic oxygenation at 87%. He had missed dialysis on arrival and his creatinine was 8.1, BUN at 41, potassium at 6.0, serum bicarbonate 31. He found to have an underlying cellulitis infection to his left lower leg. His encephalopathy is most likely secondary to needing dialysis, acute hypercapnia, and underlying infection. The patient is alert and oriented x4 today and we are weaning him down on his oxygenation as tolerated. Will continue monitoring for any confusion or worsening symptoms. (2) Acute respiratory failure with hypercapnia: Code(s): J96.02 - Acute respiratory failure with hypercapnia Status: Acute Assessment and Plan: Patient was placed on BiPAP after admission and is now alert and oriented x4. We are weaning his oxygen as tolerated to keep his O2 between 90-95%. I placed the patient on room air and his oxygen saturation continue to be 95%. Stable. Will continue monitoring his respiratory status. (3) Cellulitis of left leg: Code(s): L03.116 - Cellulitis of left lower limb Status: Acute Assessment and Plan: The patients states his leg swelling and erythema is much worse than normal. Today, his redness has improved to light pink in color and improvement of erythema. Continue with vancomycin and Zosyn which will be renally dosed per pharmacy. Monitor blood cultures. (4) Hypertension: Qualifiers: Hypertension type: essential hypertension Qualified Code(s): I10 - Essential (primary) hypertension Code(s): I10 - Essential (primary) hypertension Status: Chronic Assessment and Plan: Blood pressure this morning was 141/56 this morning before medications. I restarted his metoprolol succinate that he takes in will continue monitoring his blood pressure. (5) Diabetes mellitus: Qualifiers: Diabetes mellitus complication detail: with other circulatory complications Diabetes mellitus complication status: with circulatory complication Diabetes mellitus termite exterminator helper insulin use: with termite exterminator helper use Diabetes mellitus type: type 2 Qualified Code(s): E11.59 - Type 2 diabetes mellitus with other circulatory complications; Z79.4 - rat exterminator (current) use of insulin Code(s): E11.9 - Type 2 diabetes mellitus without complications Status: Inactive Assessment and Plan: Serum glucose was 109 this morning. Stable. Continue monitoring Accu-Cheks ACHS. Hypoglycemic protocol in place. Sliding scale insulin in place. (6) End stage renal disease: Code(s): N18.6 - End stage renal disease Status: Chronic Assessment and Plan: Dialysis Monday Dr. Calabrese evaluated the patient and ordered dialysis again for tomorrow today. I talked to Dr. Calabrese who recommended keeping the patient again overnight for another dialysis treatment tomorrow and if stable at that point he can be discharged after dialysis. Continue monitoring his renal function and electrolytes. Nephrology's input is greatly appreciated. (7) Anemia: Code(s): D64.9 - Anemia, unspecified Status: Chronic Assessment and Plan: Secondary to end-stage renal disease Hemoglobin on arrival was 9.2 today was 8.8, repeat H&H at 1400 showed Hgb at 9.5. Still stable with his acute renal failure. Continue monitoring d
[2019-05-03 12:11] LABS: Glucose Point of Care 132 (65-105)
[2019-05-03 14:06] LABS: Hematocrit 33.2 % (42.0-52.0); Hemoglobin 9.5 g/dL (14.0-18.0)
[2019-05-03 15:48] LABS: Glucose Point of Care 142 (65-105)
[2019-05-03] MEDS: ATORVASTATIN 40 MG TABLET 80 MG PO (17:32)
[2019-05-03 21:06] LABS: Glucose Point of Care 138 (65-105)
[2019-05-03] MEDS: GENTAMICIN SULFATE 0.1% CR 15 GM TUBE 1 APPLIC TOPICAL (21:23)
[2019-05-03] MEDS: PHENYLEPH/SHARK OIL/MO/PETROL CREAM 26 GM 1 APPLIC RECTAL (21:25)
[2019-05-04] VITALS (31 sets, daily range): BP systolic 111–173; BP diastolic 42–74; PULSE 66–82; RESP 16–20; TEMP 36.4–37; O2SAT 92–96
[2019-05-04] MEDS: LEVOTHYROXINE SODIUM 75 MCG TABLET PO (06:11)
[2019-05-04] MEDS: LEVOTHYROXINE SODIUM 100 MCG TABLET PO (06:11)
[2019-05-04] MEDS: METOPROLOL SUCCINATE EXT REL 12.5 MG TABCR PO (06:34)
[2019-05-04 06:47] LABS: Hematocrit 34.1 % (42.0-52.0); Hemoglobin 9.8 g/dL (14.0-18.0); Mean Corpuscular HGB Conc 28.7 g/dl (32-36); Mean Corpuscular Hemoglobin 26.7 pg (26-34); Mean Corpuscular Volume 92.9 fl (80-100); Platelet Count Result 222 k/mm3 (150-375); Red Blood Count 3.67 M/mm3 (4.6-6.20); Red Cell Distribution Width 15.7 % (11.5-14.5); White Blood Count 4.4 K/mm3 (4.5-10.0)
[2019-05-04 06:54] LABS: Albumin Level 2.8 g/dL (3.5-5.1); Blood Urea Nitrogen 31 mg/dL (9-20); CRP 0.9 mg/dL (<1.0); Carbon Dioxide 27 mmol/L (22-30); Chloride 94 mmol/L (98-107); Estimated CRCL calculation 16 ml/min; Estimated Glomerular Filt Rate 9; Glucose 92 mg/dL (75-110); Phosphorus 4.6 mg/dL (2.5-4.5); Potassium 4.9 mmol/L (3.4-5.0); Sodium 127 mmol/L (137-145)
[2019-05-04 07:02] LABS: Glucose Point of Care 87 (65-105)
[2019-05-04] MEDS: IPRATROPIUM BR 0.02% INH SOLN 0.5 MG/2.5 ML VIAL INHALATION ×2 (07:41→13:42)
--- NOTE | 2019-05-04 08:34 | PC.NURSE ---
Pt to dialysis.
--- NOTE | 2019-05-04 10:26 | PM.PNNEP ---
Progress Note: A&P Assessment and Plan (1) End-stage renal disease on hemodialysis: Code(s): N18.6 - End stage renal disease; Z99.2 - Dependence on renal dialysis Status: Acute Assessment and Plan: Aisha has end-stage renal disease. HD to continue 3 times a week on Tuesdays and Saturdays. (2) Cellulitis of left leg: Code(s): L03.116 - Cellulitis of left lower limb Status: Acute Assessment and Plan: He has left lower extremity cellulitis. The patient is on antibiotics. the leg looks a little less red. He is on Zosyn. Undoubtedly edema contributes the onset of the cellulitis. I told him he should seriously restrict fluid between treatments as a rule to prevent another episode. (3) Encephalopathy: Code(s): G93.40 - Encephalopathy, unspecified Status: Acute Assessment and Plan: Resolved (4) COPD (chronic obstructive pulmonary disease): Code(s): J44.9 - Chronic obstructive pulmonary disease, unspecified Status: Acute Assessment and Plan: Patient has a history of smoking. He does not smoke any longer. (5) Insulin dependent type 2 diabetes mellitus: Code(s): E11.9 - Type 2 diabetes mellitus without complications; Z79.4 - intermediate teacher (current) use of insulin Status: Acute Assessment and Plan: He is on Accu-Cheks and sliding-scale insulin (6) Fluid overload: Qualifiers: Hypervolemia type: other Qualified Code(s): E87.79 - Other fluid overload Code(s): E87.70 - Fluid overload, unspecified Status: Acute Assessment and Plan: Removing fluid with dialysis Blood pressure is tolerating this well Subjective Date/time seen: 05/04/19 10:26 Interval history: Patient is alert. He feels better. Eager for discharge. He is on dialysis and tolerating it well. He was seen at 9:50 a.m.. Blood pressure is doing well with fluid removal. Exam Narrative: Exam Narrative: Well developed well-nourished in no acute distress Lungs clear bilaterally Heart regular without rub Abdomen bowel sounds positive soft nontender Extremities 1 to2+ edema Skin no rash. erythema is better. Objective Data Vital Signs Vital Signs: Vital Signs - 24 hr 05/03/19 12:00 05/03/19 14:00 05/03/19 15:34 Temperature 36.7 C Pulse Rate 76 77 73 Respiratory Rate 18 16 Blood Pressure 136/69 Pulse Oximetry 94 05/03/19 15:44 05/03/19 16:00 05/03/19 17:32 Temperature Pulse Rate 77 79 77 Respiratory Rate 16 Blood Pressure Pulse Oximetry 05/03/19 19:44 05/03/19 19:54 05/03/19 19:55 Temperature Pulse Rate 79 75 98 Respiratory Rate 18 18 19 Blood Pressure Pulse Oximetry 95 71 L 05/03/19 20:00 05/03/19 21:27 05/03/19 22:25 Temperature 36.5 C Pulse Rate 71 79 70 Respiratory Rate 18 16 Blood Pressure 147/53 H Pulse Oximetry 95 94 05/04/19 00:00 05/04/19 04:00 05/04/19 04:29 Temperature Pulse Rate 66 71 76 Respiratory Rate 18 Blood Pressure Pulse Oximetry 94 05/04/19 06:00 05/04/19 06:34 05/04/19 07:41 Temperature 36.6 C Pulse Rate 69 70 79 Respiratory Rate 18 20 Blood Pressure 146/56 H Pulse Oximetry 94 05/04/19 07:42 05/04/19 07:49 05/04/19 08:00 Temperature Pulse Rate 76 73 Respiratory Rate 20 Blood Pressure Pulse Oximetry 92 05/04/19 08:45 05/04/19 09:00 05/04/19 09:15 Temperature Pulse Rate 72 71 73 Respiratory Rate Blood Pressure 135/62 116/57 L 116/42 L Pulse Oximetry 05/04/19 09:30 Temperature Pulse Rate 73 Respiratory Rate Blood Pressure 111/52 L Pulse Oximetry Intake/Output Intake/Output: Intake & Output 05/01/19 05/02/19 05/03/19 05/04/19 23:59 23:59 23:59 23:59 Intake Total 1120 1230 1950 100 Output Total 0 4600 0 0 Balance 1120 -3370 1950 100 Meds/Results Medications: Active Medications Generic Name Dose Route Start Last Admin Trade Name Freq PRN
--- NOTE | 2019-05-04 13:11 | PC.NURSE ---
Pt returned from dialysis.
[2019-05-04] MEDS: EUCERIN CREAM 120 GM JAR 1 APPLIC TOPICAL (13:26)
[2019-05-04] MEDS: SEVELAMER CARBONATE 800 MG TABLET 1600 MG PO (13:27)
[2019-05-04] MEDS: FERROUS SULFATE 324 MG TABLET PO (13:27)
[2019-05-04] MEDS: ACIDOPHILUS/BULGARICUS CHEWABLE TABLET 1 TABLET PO (13:27)
[2019-05-04] MEDS: CLOPIDOGREL BISULFATE 75 MG TABLET PO (13:27)
[2019-05-04] MEDS: PRIMIDONE 50 MG TABLET PO (13:27)
[2019-05-04] MEDS: ASPIRIN 81 MG CHEWABLE TABLET PO (13:27)
[2019-05-04] MEDS: GABAPENTIN 100 MG CAPSULE 200 MG PO (13:27)
[2019-05-04] MEDS: TAMSULOSIN HCL 0.4 MG CAPSULE PO (13:27)
[2019-05-04] MEDS: polyethylene glycoL 3350 17 GM POWD.PACK PO (13:28)
[2019-05-04] MEDS: FLUTICASONE PROPIONATE 0.05% NA SPR 16 GM BTL (*BKC) 2 SPRAY NASAL (13:28)
[2019-05-04] MEDS: LORATADINE 10 MG TABLET PO (13:28)
[2019-05-04] MEDS: CHOLESTYRAMINE (W/ SUGAR) 4 GM POWD.PACK 2 GM PO (13:28)
[2019-05-04 13:40] LABS: Glucose Point of Care 150 (65-105)
--- NOTE | 2019-05-04 13:53 | PM.DS ---
DS: Diagnosis Admitting Diagnosis Admitting Diagnosis: Acute respiratory failure with hypoxia Discharge Diagnosis (1) Metabolic encephalopathy: Code(s): G93.41 - Metabolic encephalopathy Status: Acute Assessment and Plan: The patient presented from his skilled nursing after use found to be unresponsive and confused. On arrival his ABG showed acidosis with a pH is 7.078, hypercapnia at 95.4, bicarb 27.5, and hypoxic oxygenation at 87%. He had missed dialysis on arrival and his creatinine was 8.1, BUN at 41, potassium at 6.0, serum bicarbonate 31. He found to have an underlying cellulitis infection to his left lower leg. His encephalopathy is most likely secondary to needing dialysis, acute hypercapnia, and underlying infection. The patient is alert and oriented x4 today and he is feeling much better. (2) Acute respiratory failure with hypercapnia: Code(s): J96.02 - Acute respiratory failure with hypercapnia Status: Acute Assessment and Plan: Patient was placed on BiPAP after admission and is now alert and oriented x4. We are weaning his oxygen as tolerated to keep his O2 between 90-95%. Will have his skilled nursing continue monitoring his oxygenation to prevent hypercapnia again. (3) Cellulitis of left leg: Code(s): L03.116 - Cellulitis of left lower limb Status: Acute Assessment and Plan: The patients states his leg swelling and erythema is much worse than normal. Today, his redness has improved to light pink in color and improvement of erythema. Will discharge the patient on oral clindamycin and doxycycline for broad-spectrum coverage for another 10 days in these are both metabolized by the liver to prevent any interference with his creatinine. Blood cultures at this point still show no growth. (4) Hypertension: Qualifiers: Hypertension type: essential hypertension Qualified Code(s): I10 - Essential (primary) hypertension Code(s): I10 - Essential (primary) hypertension Status: Chronic Assessment and Plan: Blood pressure this morning was 146/56 this morning before medications. I restarted his metoprolol succinate that he takes in will continue monitoring his blood pressure. (5) Diabetes mellitus: Qualifiers: Diabetes mellitus complication detail: with other circulatory complications Diabetes mellitus complication status: with circulatory complication Diabetes mellitus watermelon inspector insulin use: with prison use Diabetes mellitus type: type 2 Qualified Code(s): E11.59 - Type 2 diabetes mellitus with other circulatory complications; Z79.4 - exterminator termite (current) use of insulin Code(s): E11.9 - Type 2 diabetes mellitus without complications Status: Inactive Assessment and Plan: Serum glucose was 92 this morning. Stable. Continue monitoring Accu-Cheks ACHS. Hypoglycemic protocol in place. Sliding scale insulin in place. (6) End stage renal disease: Code(s): N18.6 - End stage renal disease Status: Chronic Assessment and Plan: Dialysis Monday Dr. Calabrese evaluated the patient and feels he can be discharged at this time and continue on his regular dialysis schedule upon discharge. (7) Anemia: Code(s): D64.9 - Anemia, unspecified Status: Chronic Assessment and Plan: Secondary to end-stage renal disease Hemoglobin on arrival was 9.8 today was 34.1%. Stable. (8) Hypothyroidism: Code(s): E03.9 - Hypothyroidism, unspecified Status: Chronic Assessment and Plan: TSH was normal. Continue with thyroid medicine levo
--- NOTE | 2019-05-07 10:34 | PC.NURSE ---
Blood cx is negative.
== END 2019-05-04 16:00 | DRG 602 ==
LOC: ANHED 15:10 → ANHIMU 05-01 07:14 → ANH3MEDSUR 05-01 23:46 → ANHIMU 05-07 13:35
PROVIDERS: Internal Medicine Nephrology; Nurse Practitioner; Physician Assistant; Admitting Provider Internal Medicine; Emergency Provider Emergency Medicine; Visit Provider Internal Medicine
DX: L03.116 Cellulitis of left lower limb (principal); J96.21 Acute and chronic respiratory failure with hypoxia; G93.41 Metabolic encephalopathy; N18.6 End stage renal disease; J96.22 Acute and chronic respiratory failure with hypercapnia; I69.354 Hemiplegia and hemiparesis following cerebral infarction affecting left non-dominant side; I12.0 Hypertensive chronic kidney disease with stage 5 chronic kidney disease or end stage renal disease; E87.1 Hypo-osmolality and hyponatremia; E87.79 Other fluid overload; E11.22 Type 2 diabetes mellitus with diabetic chronic kidney disease; D63.1 Anemia in chronic kidney disease; E03.9 Hypothyroidism, unspecified; N40.0 Benign prostatic hyperplasia without lower urinary tract symptoms; K21.9 Gastro-esophageal reflux disease without esophagitis; E78.5 Hyperlipidemia, unspecified; G47.33 Obstructive sleep apnea (adult) (pediatric); J44.9 Chronic obstructive pulmonary disease, unspecified; E11.51 Type 2 diabetes mellitus with diabetic peripheral angiopathy without gangrene; I73.9 Peripheral vascular disease, unspecified; N25.0 Renal osteodystrophy; Z66 Do not resuscitate; Z79.4 Long term (current) use of insulin; Z99.2 Dependence on renal dialysis; Z89.511 Acquired absence of right leg below knee; Z87.891 Personal history of nicotine dependence; E87.5 Hyperkalemia
CPT/HCPCS: 36415; 36600; 51701; 71045; 80053; 80069; 80202; 81001; 82805; 83605; 83735; 84443; 85014; 85018; 85025; 85027; 85610; 85730; 86140; 87040; 87081; 87086; 87804; 93005; 94003; 94640; 96361; 96365; 96366; 96367; 96375; 97110; 97163; 97166; 97530; 97535; 99291; A9270; G0257; J1644; J2060; J2543; J3370; J7030; P9047